=== PATIENT | female | born 1995 | race Caucasian/White ===

== ENCOUNTER 2025-04-26 17:01 | Inpatient (IN) | payer OTHER, SELFPAY ==
[2025-04-26] VITALS (29 sets, daily range): BP systolic 116–146; BP diastolic 70–106; BMI 48.1
--- NOTE | 2025-04-26 15:08 | ED.GENMED ---
History of Present Illness
<Keyshawn Cantrell PA-C - Last Filed: 04/26/25 15:56>
General
Chief Complaint: Breathing Problem
Source: patient
Exam Limitations: none
Time Seen by Provider: 04/26/25 14:59
History of Present Illness
History of Present Illness:
29-year-old female presents with shortness of breath and fatigue. Symptoms worsening over the past couple weeks. Father who typically does not see her states she looks much different than usual. She admits to having a heavy menstrual cycle for
the past 2 weeks. She denies abdominal pain. She states she cannot catch her breath. No syncopal episodes. No recent travel. She is not on any medications regularly.
Phy Exam
<Keyshawn Cantrell PA-C - Last Filed: 04/26/25 15:56>
Physical Exam
Physical Exam:
General: Ill-appearing female with increased respiratory effort
HEENT: Normocephalic atraumatic
Heart: Tachycardic but regular
Lungs: Breath sounds slightly diminished secondary to body habitus
Extremities edematous and pale
Skin is cool
Course
<Keyshawn Cantrell PA-C - Last Filed: 04/26/25 15:56>
Orders/Labs/Results
Orders:
Orders
04/26/25 14:53
Cardiac Monitoring- Treatment ONCE
IV Insert/Care/Rem.- Treatment PRN
Test Result ONCE
O2 Therapy [RESP] Urgent
Titrate/Wean O2 to maintain O2 sat greater than (%): 93
Special Instructions: MAINTAIN CONTINOUS O2 SATS > OR = 93%
Pulse Ox/spot Check [RESP] Urgent
Quantity: 1
Special Instructions: ON ROOM AIR
04/26/25 14:54
EKG [Electrocardiogram (*1)] Urgent
Reason for Study: Shortness of Breath
EKG- Treatment ONCE
04/26/25 14:56
Type+Screen Urgent
Complete Blood Count/With Diff Urgent
Comprehensive Metabolic Panel Urgent
HCG, Serum Qualitative Screen Urgent
Comment: Notify provider if positive test present
NT-proBNP Urgent
Comment: ADD ON
NT-proBNP Urgent
Comment: ADD ON
PTT Urgent
Prothrombin Time Urgent
Troponin I Urgent
04/26/25 15:06
Lactic Acid Urgent
Venous Blood Gas Urgent
%Oxygen/Room Air: room air
04/26/25 15:07
CR Chest Portable - 1 View Urgent
Comment:
Reason For Exam: sob
Reason Study Needs to be Portable: Unable to Transport
04/26/25 15:22
Add On- LAB Urgent
Tests Added?: bnp,
04/26/25 15:23
Echo 2D MMode Color/Doppler Urgent
Reason for Study: sob large heart-portable in ER 29 thanks
04/26/25 15:26
Electrocardiogram (*1) Urgent
Reason for Study: Shortness of Breath
EKG- Treatment ONCE
04/26/25 15:41
COVID-19 Antigen Urgent
Source: Nasal Swab
Influenza A+B Rapid Molecular Urgent
KAITLYNN Source: Nasal Swab
Specimen Description:
04/26/25 15:44
Ehrlichia/Anaplasma by PCR [S] Urgent
Lyme Progressive Urgent
[facility] Spotted Fever IgG&IgM [S] Urgent
Blood Parasites Urgent
KAITLYNN Source: Blood/Venous
Specimen Description:
Furosemide [Lasix] 40 mg IV NOW STA
04/26/25 15:45
Blood Culture Q30M
KAITLYNN Source: Blood/Venous
Specimen Description:
04/26/25 16:15
Blood Culture Q30M
KAITLYNN Source: Blood/Venous
Specimen Description:
Abnormal Lab Results
04/26/25 04/26/25 04/26/25
14:56 15:06 15:15
WBC 14.2 H 10^3/uL
(4.8-10.8)
RBC 3.69 L 10^6/uL
(4.20-5.40)
Hgb 9.0 L g/dL
(12.0-16.0)
Hct 29.0 L %
(37.0-47.0)
MCV 78.6 L fL
(81.0-99.0)
MCH 24.4 L pg
(27.0-31.0)
MCHC 31.0 L g/dL
(33.0-37.0)
RDW 15.4 H %
(11.5-14.5)
Plt Count 127 L 10^3/uL
(130-400)
MPV 12.1 H fL
(7.4-10.4)
Abs Immat Gran (auto) 0.5 H 10^3/uL
(0-0.05)
Absolute Neuts (auto) 10.7 H 10^3/uL
(1.4-6.5)
Absolute Monos (auto) 1.4 H 10^3/uL
(0.1-0.6)
Immature Gran % 3.2 H %
(0-0.5)
Neutrophils % 75.6 H %
(42.2-75.2)
Lymphocytes % 11.1 L %
(20.5-51.1)
Monocytes % 9.7 H %
(1.7-9.3)
PT 18.3 H Sec
(11.4-14.6)
APTT 36.4 H Sec
(23.4-35.0)
VBG pCO2 34 L mmHg
(35-48)
VBG pO2 70 H mmHg
(30-50)
VBG HCO3 20.6 L mmol/L
(22-27)
Sodium 132 L mmol/L
(135-145)
Carbon Dioxide 17 L mmol/L
(22-30)
BUN 43 H mg/dl
(7-17)
Creatinine 1.6 H mg/dL
(0.6-1.0)
Glucose 118 H mg/dl
(70-99)
Lactic Acid 2.3 H mmol/L
(0.7-2.0)
Total Bilirubin 3.1 H mg/dl
(0.2-1.3)
AST 253 H U/L
(14-36)
ALT 247 H U/L
(0-35)
Troponin I 0.185 H* ng/ml
POC Glucose 118 H mg/dl
(70-99)
04/26/25 14:56
04/26/25 14:56
Vital Signs
Initial and Last Documented VS:
Initial Vital Signs
Pulse Resp Pulse Ox
120 58 98
04/26/25 14:54 04/26/25 14:54 04/26/25 14:54
Last Documented Vital Signs
Temp Pulse Resp BP Pulse Ox
97.8 F 116 34 129/92 97
04/26/25 14:55 04/26/25 15:45 04/26/25 15:45 04/26/25 15:45 04/26/25 15:45
Cameronlt;Noe Hebert, DO - Last Filed: 04/26/25 15:48>
Orders/Labs/Results
Orders:
Orders
04/26/25 14:53
Cardiac Monitoring- Treatment ONCE
IV Insert/Care/Rem.- Treatment PRN
Test Result ONCE
O2 Therapy [RESP] Urgent
Titrate/Wean O2 to maintain O2 sat greater than (%): 93
Special Instructions: MAINTAIN CONTINOUS O2 SATS > OR = 93%
Pulse Ox/spot Check [RESP] Urgent
Quantity: 1
Special Instructions: ON ROOM AIR
04/26/25 14:54
EKG [Electrocardiogram (*1)] Urgent
Reason for Study: Shortness of Breath
EKG- Treatment ONCE
04/26/25 14:56
Type+Screen Urgent
Complete Blood Count/With Diff Urgent
Comprehensive Metabolic Panel Urgent
HCG, Serum Qualitative Screen Urgent
Comment: Notify provider if positive test present
NT-proBNP Urgent
Comment: ADD ON
NT-proBNP Urgent
Comment: ADD ON
PTT Urgent
Prothrombin Time Urgent
Troponin I Urgent
04/26/25 15:06
Lactic Acid Urgent
Venous Blood Gas Urgent
%Oxygen/Room Air: room air
04/26/25 15:07
CR Chest Portable - 1 View Urgent
Comment:
Reason For Exam: sob
Reason Study Needs to be Portable: Unable to Transport
04/26/25 15:22
Add On- LAB Urgent
Tests Added?: bnp,
04/26/25 15:23
Echo 2D MMode Color/Doppler Urgent
Reason for Study: sob large heart-portable in ER 29 thanks
04/26/25 15:26
Electrocardiogram (*1) Urgent
Reason for Study: Shortness of Breath
EKG- Treatment ONCE
04/26/25 15:41
COVID-19 Antigen Urgent
Source: Nasal Swab
Influenza A+B Rapid Molecular Urgent
KAITLYNN Source: Nasal Swab
Specimen Description:
04/26/25 15:44
Ehrlichia/Anaplasma by PCR [S] Urgent
Lyme Progressive Urgent
[facility] Spotted Fever IgG&IgM [S] Urgent
Blood Parasites Urgent
KAITLYNN Source: Blood/Venous
Specimen Description:
Furosemide [Lasix] 40 mg IV NOW STA
04/26/25 15:45
Blood Culture Q30M
KAITLYNN Source: Blood/Venous
Specimen Description:
04/26/25 16:15
Blood Culture Q30M
KAITLYNN Source: Blood/Venous
Specimen Description:
Abnormal Lab Results
04/26/25 04/26/25 04/26/25
14:56 15:06 15:15
WBC 14.2 H 10^3/uL
(4.8-10.8)
RBC 3.69 L 10^6/uL
(4.20-5.40)
Hgb 9.0 L g/dL
(12.0-16.0)
Hct 29.0 L %
(37.0-47.0)
MCV 78.6 L fL
(81.0-99.0)
MCH 24.4 L pg
(27.0-31.0)
MCHC 31.0 L g/dL
(33.0-37.0)
RDW 15.4 H %
(11.5-14.5)
Plt Count 127 L 10^3/uL
(130-400)
MPV 12.1 H fL
(7.4-10.4)
Abs Immat Gran (auto) 0.5 H 10^3/uL
(0-0.05)
Absolute Neuts (auto) 10.7 H 10^3/uL
(1.4-6.5)
Absolute Monos (auto) 1.4 H 10^3/uL
(0.1-0.6)
Immature Gran % 3.2 H %
(0-0.5)
Neutrophils % 75.6 H %
(42.2-75.2)
Lymphocytes % 11.1 L %
(20.5-51.1)
Monocytes % 9.7 H %
(1.7-9.3)
PT 18.3 H Sec
(11.4-14.6)
APTT 36.4 H Sec
(23.4-35.0)
VBG pCO2 34 L mmHg
(35-48)
VBG pO2 70 H mmHg
(30-50)
VBG HCO3 20.6 L mmol/L
(22-27)
Sodium 132 L mmol/L
(135-145)
Carbon Dioxide 17 L mmol/L
(22-30)
BUN 43 H mg/dl
(7-17)
Creatinine 1.6 H mg/dL
(0.6-1.0)
Glucose 118 H mg/dl
(70-99)
Lactic Acid 2.3 H mmol/L
(0.7-2.0)
Total Bilirubin 3.1 H mg/dl
(0.2-1.3)
AST 253 H U/L
(14-36)
ALT 247 H U/L
(0-35)
Troponin I 0.185 H* ng/ml
POC Glucose 118 H mg/dl
(70-99)
04/26/25 14:56
04/26/25 14:56
Vital Signs
Initial and Last Documented VS:
Initial Vital Signs
Pulse Resp Pulse Ox
120 58 98
04/26/25 14:54 04/26/25 14:54 04/26/25 14:54
Last Documented Vital Signs
Temp Pulse Resp BP Pulse Ox
97.8 F 116 34 129/92 97
04/26/25 14:55 04/26/25 15:45 04/26/25 15:45 04/26/25 15:45 04/26/25 15:45
Cameronlt;Keyshawn Cantrell PA-C - Last Filed: 04/26/25 15:56>
MDM/Problems Addressed
Differential Diagnosis Includes:
Patient with fatigue and shortness of breath brought back from the waiting room and I evaluated her since she was in the room. Patient tachycardic and pale. Consider anemia from prolonged vaginal bleeding versus PE versus volume overload. Patient
is not hypoxic. No risk factors for PE otherwise.
<Keyshawn Cantrell PA-C - Last Filed: 04/26/25 15:56>
*Pulse Oximetry
SaO2: 99
Oxygen Mode of Delivery: Room air
Patient hypoxic: no
*Critical Care Note
Total Time (30-74mins, 75-104mins- exclusive of procedures): Not Applicable
<Keyshawn Cantrell PA-C - Last Filed: 04/26/25 15:56>
Update Note
Update Note:
Portable chest x-ray demonstrates significantly enlarged heart. Question possible cardiomyopathy. Instead of PE study will order echocardiogram to evaluate for any significant pericardial effusion wall motion abnormality or regurgitation. This is
currently being done at bedside. Seen by cardiology. Given volume overload status Lasix was ordered. Hemoglobin is 9.0 she also bumped her troponin at 0.185
Results of echocardiogram demonstrated severe MR with ejection fraction of 30% no evidence of cord rupture. Treated for acute heart failure. Etiology unclear at this time. Lasix ordered. Will admit to hospitalist
ED Attending Note
<Keyshawn Cantrell PA-C - Last Filed: 04/26/25 15:56>
-
Portions of this chart may have been created with voice recognition software.� Occasional wrong word or��sound alike� substitutions may have occurred due to the inherent limitations of voice recognition software.
<Noe Hebert DO - Last Filed: 04/26/25 15:48>
ED Attending Note
Patient seen and examined by attending physician: Yes
I performed the substantive portion of visit, reviewed & personally made and approve the management plan that is documented in note by myself or OUMAR.: Yes
ED Attending Note:
Seen with PA examined [id number] female presents with shortness of breath subacute onset with cough she has lower extremity edema has had heavy menstrual period, looks pale and mottled, sinus tachycardia, chest x-ray shows a large
heart, patient undergoing echocardiogram, cardiology evaluation, leading differential now looks to be cardiomyopathy press valvulopathy perhaps infectious PE conceivably though she has no RV strain apparently is anemic with mild renal insufficiency
Discharge Plan
Departure
Patient Disposition: Admit
Date of Disposition: 04/26/25
Time of Disposition: 15:55
Presentation/result/management discussed w/ accepting MD/DO: Hospitalist
Discharge Problem:
Acute congestive heart failure
Prescriptions:
No Action
albuterol sulfate 90 mcg/actuation Hfa Aerosol Inhaler
2 puff INHALATION Q6H PRN (Reason: sob)
Interventions
Interventions:
*Risk Screen - Suicide Last Done: 04/26/25 14:55
*General Assessment Last Done: 04/26/25 14:55
*Neglect/Abuse Screening Last Done: 04/26/25 14:55
*ED- Fall Risk Assessment Last Done: 04/26/25 14:55
*ED COVID-19 Vaccine History Last Done: 04/26/25 14:55
ED- Cardiac Assessment Last Done: 04/26/25 15:10
ED- Pulmonary Assessment Last Done: 04/26/25 15:10
Discharge Date and Time
Print Language: EGYPTIAN
[2025-04-26 15:11] LABS: Hematocrit 29.0 % (37.0-47.0); Hemoglobin 9.0 g/dL (12.0-16.0); Mean Corp Hgb Conc. 31.0 g/dL (33.0-37.0); Mean Corpuscular Volume 78.6 fL (81.0-99.0); Nucleated Red Blood Cells % 1.4 %; Platelet Count 127 10^3/uL (130-400); Red Cell Dist. Width 15.4 % (11.5-14.5)
[2025-04-26 15:13] LABS: Venous Blood Gas B.E. -3.8 mmol/L (-4 to +4); Venous Blood Gas O2 Sat % 97.0 %
[2025-04-26 15:16] LABS: Glucose - Point of Care 118 mg/dl (70-99)
[2025-04-26 15:17] LABS: APTT 36.4 Sec (23.4-35.0); INR 1.46; PT 18.3 Sec (11.4-14.6)
[2025-04-26 15:32] LABS: Troponin I 0.185 ng/ml
[2025-04-26 15:33] LABS: HCG, Serum Qualitative Screen Negative
[2025-04-26 15:38] LABS: ALT (SGPT) 247 U/L (0-35); AST (SGOT) 253 U/L (14-36); Albumin 3.9 g/dl (3.5-5.0); Alkaline Phosphatase 123 U/L (38-126); Blood Urea Nitrogen 43 mg/dl (7-17); Calcium 8.6 mg/dl (8.4-10.2); Carbon Dioxide 17 mmol/L (22-30); Chloride 101 mmol/L (98-107); Estimated Creatinine Clearance 72 ml/min; Glucose 118 mg/dl (70-99); Potassium 4.1 mmol/L (3.5-5.1); Sodium 132 mmol/L (135-145); Total Protein 6.8 g/dl (6.3-8.2); eGFR 45.05
--- NOTE | 2025-04-26 15:58 | EDRN ---
Per technical clerk at bedside, the pt was given a dose of lipid molecule medication Lumason during ECHO testing for enhanced picture
[2025-04-26] MEDS: LASIX 40 MG IV (16:03)
--- NOTE | 2025-04-26 16:03 | CARDSERVLU ---
Echocardiogram with Lumason completed after protocol screening completed. Allergies verified.
Patent IV site: _right upper accessary cephalic 18 G PC____
IV site flushed with 0.9% NaCl pre and post administration.
Diluted bolus method utilized to enhance visualization of ventricular covarrubias.
Total volume given: _2___ mL
Patient tolerated all procedures well without complications.
[2025-04-26 16:21] LABS: COVID-19 Antigen Negative (Negative)
--- NOTE | 2025-04-26 16:22 | HPS.HSE ---
Family Physician
-
Family Physician:
Chief Complaint
-
shortness of breath
History of Present Illness
29-year-old female past medical history of mild autism/Asperger's, asthma, presenting with shortness of breath and fatigue worsening over the past 2 weeks. Significantly increased bilateral lower extremity edema. Unsure about weight gain. Patient
has been having heavy menstrual bleeding over the past week which is apparently not abnormal for her. No abdominal pain. No dizziness or passing out. No fever. No tick bites. No rashes. Received obtained from patient's father. She did have
some chest pain intermittently but denies any chest pain currently. No cough. No recent travel.
Patient is highly functional at baseline.
She lives with her grandparents. There is a history of heart disease in her father.
He does not smoke or drink alcohol or use drugs.
Medical History
Past Medical History
Past Medical History: Reports Other (mild autism/Asperger's, asthma,)
Past Surgical History: Reports None
Social History
Tobacco: Non-smoker
Alcohol: None
Drug: None
Family History
Family History: Not pertinent
Allergies / Home Medications
Allergies reflects when Allergies were last updated in [facility].
Home Medications with original date entered in [facility]
Allergy/Medication List:
Allergies
Allergy/AdvReac Type Severity Reaction Status Date / Time
No Known Allergies Allergy Unverified 04/26/25 15:02
Home Medications
albuterol sulfate 90 mcg/actuation aerosol inhaler 2 puff inhalation R Q6HPRN PRN sob 04/26/25
Review of Systems
-
History Source: Patient
A 12 point ROS was completed and negative except as noted: Yes
Constitutional: Reports No Symptoms
EENT: Reports No Symptoms
Respiratory: Reports No Symptoms
Cardiac: Reports No Symptoms
Abdomen/GI: Reports No Symptoms
: Reports No Symptoms
Musculoskeletal: Reports No Symptoms
Skin: Reports No Symptoms
Neurological: Reports No Symptoms
Endocrine: Reports No Symptoms
Hematologic/Lymphatic: Reports No Symptoms
Psych: Reports No Symptoms
Physical Exam
Vital Signs
Vital Signs
Temp Pulse Resp BP Pulse Ox
97.8 F 116 34 139/86 98
04/26/25 14:55 04/26/25 16:08 04/26/25 16:08 04/26/25 16:08 04/26/25 16:08
Physical Exam
General: Well Developed, Well Nourished and No Apparent Distress
HEENT: NormoCephalic, Moist mucous membranes and Atraumatic
Respiratory: Clear
Cardiac: S1/S2, Regular Rhythm and Peripheral Edema; No Murmur or Rub
GI: Soft, Non Tender, Non Distended and Normal Bowel Sounds; No Organomegaly
Rectal: Deferred by Provider
Musculoskeletal: No Clubbing, No Cyanosis and No Edema
Skin: No Rash
Neuro: Nonfocal/grossly intact
Laboratory Results
-
04/26/25 14:56
04/26/25 14:56
Laboratory Results
PT 18.3 Sec (11.4-14.6) H 04/26/25 14:56
INR 1.46 04/26/25 14:56
APTT 36.4 Sec (23.4-35.0) H 04/26/25 14:56
Lactic Acid 2.3 mmol/L (0.7-2.0) H 04/26/25 15:06
Total Bilirubin 3.1 mg/dl (0.2-1.3) H 04/26/25 14:56
AST 253 U/L (14-36) H 04/26/25 14:56
ALT 247 U/L (0-35) H 04/26/25 14:56
Alkaline Phosphatase 123 U/L (38-126) 04/26/25 14:56
Troponin I 0.185 ng/ml H* 04/26/25 14:56
Data Reviewed
-
Lab Data: Labs Reviewed by me
Old Records: Reviewed
Impression/Plan
-
IMPRESSION:
PLAN:
# Dyspnea concerning for acute CHF exacerbation secondary to cardiomyopathy unclear if viral/tickborne related
- Chest x-ray shows significant cardiomegaly concerning for cardiomyopathy
-ABG shows pH of 7.39, pCO2 of 34
-Stat echocardiogram showed ejection fraction of 30%
- Check I's and O's, daily weights
- 40 IV Lasix daily
- Cardiology consulted
# SIRS (leukocytosis, tachypnea, tachycardia) possibly secondary to CHF versus underlying infectious process
# Transaminitis possibly secondary to hepatic venous congestion versus
- Blood parasites, Lyme's, ehrlichiosis/anaplasmosis, [place] spotted fever pending
- Check blood cultures
- Trend lactate
- Hold off antibiotics
# Nonischemic myocardial injury
-No chest pain currently
-EKG shows sinus tachycardia, prolonged QTc of 500
- Troponin of 0.185
- Trend troponins
# Acute kidney injury likely cardiorenal
- Monitor with diuresis
Possibly chronic anemia secondary to menstrual bleeding
- Hemoglobin 9
Likely acute thrombocytopenia
- Platelets 127
Mild autism/Asperger's
Asthma
- Continue albuterol
Full code
DVT prophylaxis�heparin
Regular diet
--- NOTE | 2025-04-26 16:24 | CON.CAR ---
Addendum entered and electronically signed by Jon Mcmillan MD 04/26/25 17:49:
I saw and examined the patient.
The Analytics Senior Manager's note was reviewed and I agree with the note.
Comment: Briefly, 29-year-old woman with no significant past medical history who presents with at least one month of progressively worsening dyspnea and peripheral edema. Checks x-ray showed cardiomegaly and bilateral infiltrates concerning for
pulmonary edema concerning for acute heart failure. Subsequent echocardiogram showed severely dilated left ventricle with severely reduced left ventricular systolic function and severe MR.
On examination patient is tachycardic with holosystolic murmur consistent with significant mitral regurgitation, tachypneic on 3 L supplemental O2, 2-3+ pitting lower extremity edema
Initial labs with elevated creatinine, LFTs and lactate all suggestive of low-flow state
IV Lasix once now and then at least twice daily going forward in an attempt to improve her respiratory status
If respiratory status worsens would consider positive pressure ventilation with CPAP
Ideally would start afterload reduction and patient's blood pressure has been consistently elevated
Will order low-dose losartan and monitor renal function closely. If creatinine worsens would consider hydralazine as an alternative.
Plan to add GDMT stepwise as blood pressure and renal function tolerates
Etiology of her cardiomyopathy is unclear. There is no significant history of cardiomyopathy that we can ascertain and we are told she does not drink alcohol or drug use.
Discussed possible left/right heart cath next week to exclude coronary disease and assess intracardiac filling pressures. And that ultimately we could consider cardiac MRI in the future but for now we will focus on optimizing her medical therapy.
Troponin elevation is noted 0.185. Would trend peak.
Not reporting any chest discomfort, overall my suspicion for ACS is low. Suspect this is nonischemic myocardial injury troponin elevation in the setting of acute heart failure.
Discussed with ER physicians as well as family at bedside
Original Note:
Consultation
Consultation Request
Date/Time Consultation Requested: 04/26/2025
Date/Time Consultation Performed: 04/26/2025
Requesting Provider: Dr. Hebert in the ER
Performing Provider: Dr. Mcmillan
Reason for Consultation: Acute HF
Medical History
-
History of Present Illness:
Patient came to the ER today with SOB and LE edema and is being admitted with acute HF and cardiology has been consulted. Patient lives with her maternal grandmother and her mother side of the family had been reporting that the patient was more
swollen and SOB. The patient's father was alerted that the patient was more swollen and that while some of the mother's family felt that her symptoms were not severe other family members felt that she needed 911 called and so the father left work
early to check on the patient today then brought her to [facility] ER to be evaluated. The patient's father reports that his daughter is usually conversant and that when he saw her today she was barely responsive and did not appear to be herself, she had
significant LE edema that she does not usually have. Reportedly patient has her own room at her grandmother's house and it is infested with mice because she takes food and drink into her room and does not realize that she has to throw it out.
Family reports that patient has normal intelligence level without any history of developmental delay and was able to graduate high school, but is not currently employed. Patient has never been officially diagnosed as being autistic, but the family
reports that she does not do well with physical touch and has trouble making complex decisions. It is unclear how long patient has been SOB, she told the analytical tech is been weeks and she told family it has been a couple of days. Patient denies any
chest pain.
PMH:
None
Past Medical History
Past Medical History: Other (In HPI)
Past Surgical History: None
Social History
Tobacco: Non-Smoker
Alcohol: None (Patient and family deny alcohol use)
Drug: None (Patient and family deny drug use)
Personal: Single
Living: With Family (Was living with her maternal grandmother and Hermila)
Family History
Family History: CAD (Paternal great uncle with history of GA, father had negative cardiac cath within the last few years)
Allergies / Home Medications
Allergy/AdvReac Type Severity Reaction Status Date / Time
No Known Allergies Allergy Unverified 04/26/25 15:02
�Medication �Instructions �Recorded �Confirmed �Type
albuterol sulfate 90 mcg/actuation 2 puff inhalation R Q6HPRN PRN sob 04/26/25 04/26/25 History
aerosol inhaler
Review of Systems
-
History Source: Patient and Family (Talked with father and paternal grandmother)
All other systems: Negative unless noted
Physical Exam
Vital Signs
Temp Pulse Resp BP Pulse Ox
97.8 F 116 34 139/86 98
04/26/25 14:55 04/26/25 16:08 04/26/25 16:08 04/26/25 16:08 04/26/25 16:08
GEN: NAD. AAO to person place and situation, but had to look at her smart watch to tell me what day of the week it was
HEENT: EOMI
LUNGS: 3 L NC. Dyspneic with conversation. Diffuse Rales
CV: Sinus tachycardia on telemetry. Reg, S1/S2, 3/6 syst HSM
ABD: ND
EXT: +2 pitting B/L LE edema
NEURO: Gross non-focal
SKIN: No rash
Lab Results
04/26/25 14:56
04/26/25 14:56
Troponin I 0.185 ng/ml H* 04/26/25 14:56
Aqk-[id number] Pept Cancelled 04/26/25 14:56
Impression / Plan
-
PCP: None
Cardiology: None
Impression:
Presented to the ER with acute hypoxic respiratory failure and edema 04/26/2025
Acute hypoxic respiratory failure
Acute HFrEF
Newly diagnosed CM EF 20 to 25% by echo 04/26/2025
Moderate MR by echo 04/26/2025
Elevated troponin
ROGELIO
Anemia, initial Hgb 9 on 04/26/2025
Leukocytosis
Thrombocytopenia
Hyponatremia
Elevated lactic acid level
Elevated LFTs
Echo 04/26/2025: Preliminary report, EF 20 to 25%, moderate MR
Plan:
-Patient came to the ER today with SOB and LE edema and is being admitted with acute HF and cardiology has been consulted. Patient lives with her maternal grandmother and her mother side of the family had been reporting that the patient was more
swollen and SOB. The patient's father was alerted that the patient was more swollen and that while some of the mother's family felt that her symptoms were not severe other family members felt that she needed 911 called and so the father left work
early to check on the patient today then brought her to [facility] ER to be evaluated. The patient's father reports that his daughter is usually conversant and that when he saw her today she was barely responsive and did not appear to be herself, she had
significant LE edema that she does not usually have. Reportedly patient has her own room at her grandmother's house and it is infested with mice because she takes food and drink into her room and does not realize that she has to throw it out.
Family reports that patient has normal intelligence level without any history of developmental delay and was able to graduate high school, but is not currently employed. Patient has never been officially diagnosed as being autistic, but the family
reports that she does not do well with physical touch and has trouble making complex decisions. It is unclear how long patient has been SOB, she told the analytical tech is been weeks and she told family it has been a couple of days. Patient denies any
chest pain.
-ECG reviewed by me is sinus tachycardia, no acute ischemic changes
-Preliminary echo report reviewed with patient and family, EF appears reduced at 20 to 25% with moderate MR, these are new diagnoses for the patient.
-Troponin is elevated, but no chest pain and hypokinesis appears global. Reviewed with patient and family eventual ischemic evaluation, likely cardiac cath, once diuresed.
-We also talked about possible workup for NICM pending results of cardiac cath. Patient denies alcohol use and family also denies patient having any alcohol use disorder. No reports of illicit drug use and patient also denies. There is no family
history of cardiomyopathy.
-Pending results of cardiac cath she may eventually need cardiac MRI
-Lasix 40 mg IV x 1 ordered by me in the ER, recommend Lasix 40 mg IV BID diuresis
-Initial Cre is 1.6, will follow while patient diuresis
-Start lisinopril 5 mg daily if Cre is stable in the a.m. could consider eventual transition to Entresto, but not sure that patient has medical insurance
-Eventually start Coreg
-Eventually add spironolactone and SGLT2 inhibitor, again not sure if she will be able to afford Farxiga or Jardiance if she does not have medical insurance and prescription coverage.
-CM consult to help with determination of insurance coverage and to see if patient qualifies for Medicaid.
-Elevated LFTs could be due to hepatic congestion, will follow.
-Initial troponin 0.158 and could be due to acute HF. No chest pain and no regional WMA on echo. Will trend, but suspect this is nonischemic myocardial injury troponin elevation due to acute HF
-Preliminary echo report looks like at least moderate MR without evidence of torn cord or vegetation. Recheck echo once diuresed. Blood cultures ordered in the ER.
-Patient is anemic with Hgb of 9. Patient reports she has had a menstrual cycle for 2 weeks. Hospitalist to evaluate.
[2025-04-26] MEDS: COZAAR 25 MG PO (18:35)
[2025-04-26 19:13] LABS: Troponin I 0.198 ng/ml
[2025-04-26] MEDS: LASIX 20 MG IV (20:37)
[2025-04-26] MEDS: HEPARIN 5000 UNITS SC (20:41)
[2025-04-27] VITALS (23 sets, daily range): BP systolic 96–140; BP diastolic 60–88; BMI 46.8; BMI 46.6
--- NOTE | 2025-04-27 00:40 | EDRN ---
Just before going home for the night, the pts father Ha stated that he is concerned that the patient may not be able to fully comprehend what is going on medically and may be unable to make appropriate decisions regarding her medical care and
treatment plan. the pts father Ha also reports that the pt 'may be autistic but was never tested or diagnosed.' [facility] PROFESSOR Ekaterina Patel was notified of above and per [facility] NAKITA Tobar, an order was placed for a case management consult.
[2025-04-27 00:44] LABS: Troponin I 0.207 ng/ml
[2025-04-27 06:48] LABS: ALT (SGPT) 210 U/L (0-35); AST (SGOT) 103 U/L (14-36); Albumin 3.3 g/dl (3.5-5.0); Alkaline Phosphatase 109 U/L (38-126); Blood Urea Nitrogen 44 mg/dl (7-17); Calcium 7.7 mg/dl (8.4-10.2); Carbon Dioxide 24 mmol/L (22-30); Chloride 102 mmol/L (98-107); Estimated Creatinine Clearance 72 ml/min; Glucose 97 mg/dl (70-99); Potassium 3.3 mmol/L (3.5-5.1); Sodium 136 mmol/L (135-145); Total Protein 6.0 g/dl (6.3-8.2); eGFR 45.05
[2025-04-27 06:49] LABS: Hematocrit 27.6 % (37.0-47.0); Hemoglobin 8.8 g/dL (12.0-16.0); Mean Corp Hgb Conc. 31.9 g/dL (33.0-37.0); Mean Corpuscular Volume 77.5 fL (81.0-99.0); Nucleated Red Blood Cells % 0.6 %; Platelet Count 100 10^3/uL (130-400); Red Cell Dist. Width 15.6 % (11.5-14.5)
[2025-04-27 07:01] LABS: Troponin I 0.198 ng/ml
--- NOTE | 2025-04-27 07:54 | W.PN.HOSP.TC ---
Addendum entered and electronically signed by Natalia Duncan MD, Resident 04/27/25 16:30:
CDI:
Pt BMI 46.8, c/w dx of severe obesity
Original Note:
Today's Communication/Plan
-
- Continue IV lasix 40mg bid
- Losartan 25mg PO daily
- If Cr worsens, consider hydralazine alternative
- Will add GDMT stepwise as BP & renal fxn tolerate (currently ARB; pending SGLT2i, MRA, BB)
- Blood cx pending
- Lyme, ehrlichiosis/anaplasmosis, [place] spotted fever pending
- Hold on viral panel given lab restrictions (parvovirus B19, HHV6, coxsackievirus, adenovirus, echovirus, CMV, HIV)
- Lipid panel pending
- HA1c pending
- Order ESR, CRP, JOAQUÍN, ANCA, RF, complements
- CPAP if respiratory status declines
- Consider heart cath next week to assess filling pressures, exclude CAD
- Long-term, consider cardiac MRI
- Long-term, consider outpatient genetics workup if unable to determine other etiology of DCM
- Cards following, appreciate recs
- Keep Mg>2, K>4
- Follow iron labs
- Tele
- Start ASA 81mg
Assessment / Plan
Assessment / Plan
Elodia Mcadams is a 29yo F w no significant pmh who p/w subacute dyspnea & GLORIA, found to have cardiomegaly, pulmonary edema, LVEF 24%, & severe MR all c/f acute HFrEF in s/o cardiomyopathy of unknown etiology.
#Acute HFrEF (24%)
#Severe MR
#Dilated cardiomyopathy
#Tachypnea
Pt presents w ~1-2 weeks of worsening dyspnea and GLORIA. CXR (04/26): cardiomegaly & small bilat pleural effusions. Echo (04/26): LVEF 24%, global hypokinesis, severely dilated L ventricle, severe MR, mild TR, pulm artery pressure estimated 44mmHg. On
presentation - tachycardic, tachypneic without hypoxia or CP (98% RA but RR in 50s > put on 3L NC). BUN elevated 44. ABG w pH of 7.39, pCO2 of 34.
Precipitating dilated cardiomyopathy of unknown etiology. Ddx dilated cardiomyopathy: CAD (less likely in young pt, pending lipid panel) vs. viral (no hx of ppt sx, possible subclinical viral infection, micro pending) vs. tick-borne bacterial (no hx
exposure, micro pending) vs. genetic syndromes (to clarify fam hx) vs. drug/alcohol toxicity (denies use) vs. sarcoid/autoimmune (pending workup). Fam hx of some HF, unknown etiology. Hx on presentation - 'No fever. No tick bites. No rashes. No
cough. No recent travel.' Bedroom at home has mice infestation. She does not smoke or drink alcohol or use drugs. Rash on arms/legs reported as chronic, not petechial/purpuric, not targetoid, not in typical autoimmune distribution. Blood parasites
smear negative, flu a/b negative, covid negative. MR likely secondary in s/o dilated cardiomyopathy.
This am remains tachycardic ~100bpm and tachypneic RR 36. Satting 97% on room air (weaned off 2L this am). Fluid balance -5 ml. Afebrile, normotensive. WBC 14.2>11.8 today, likely elevated in s/o inflammatory state.
- Continue IV lasix 40mg bid
- Losartan 25mg PO daily
- If Cr worsens, consider hydralazine alternative
- Will add GDMT stepwise as BP & renal fxn tolerate (currently ARB; pending SGLT2i, MRA, BB)
- Blood cx pending
- Lyme, ehrlichiosis/anaplasmosis, [place] spotted fever pending
- Hold on viral panel given lab restrictions (parvovirus B19, HHV6, coxsackievirus, adenovirus, echovirus, CMV, HIV)
- Lipid panel pending
- HA1c pending
- Order ESR, CRP, JOAQUÍN, ANCA, RF, complements
- CPAP if respiratory status declines
- Consider heart cath next week to assess filling pressures, exclude CAD
- Start ASA 81mg
- Long-term, consider cardiac MRI
- Long-term, consider outpatient genetics workup if unable to determine other etiology of DCM
- Cards following, appreciate recs
#SIRS
Pt still meeting SIRS criteria 2/2 tachycardia, tachypnea. WBC elevated on admission, trending down 14.2>11.8. Lower suspicion for infectious etiology given afebrile, no localizing sx or exposure, WBC trending down in absence of abx, elevated HR &
RR explained by acute HF. Lactate not elevated, 1.7. Will continue to monitor pending micro labs.
-Monitor tick-borne dz panel & blood cx
-Continue mgmt of HF as above
-Monitor vitals closely
-Hold on starting abx
#Transaminitis
Likely 2/2 hepatic congestion in s/o volume overload 2/2 acute HFrEF. Corroborated by improving ALT/AST s/p diuresis. t bili 3.1>2.9; AST 253>103; ALT 247>210
- Continue to trend AST/ALT, tbili
#Elevated troponin
#Long QT
Likely in 2/2 nonischemic myocardial injury s/o acute HF. EKG (04/26): prolonged QT 500 & sinus tachy. C/f episode of torsades. Low suspicion for ACS given EKG & lack of CP. Trop: 0.198>0.207>0.198.
- Continue to monitor troponin, assess for peak
- Replete Mg (keep >2, K>4)
- Tele
#Elevated Cr, suspected cardiorenal
Unknown baseline Cr but pt without known renal condition at baseline. Elevated Cr: 1.6>1.6 likely 2/2 cardiorenal syndrome in s/o acute HF.
- Continue to monitor w diuresis
#Anemia
Likely combination of heavy menstrual period over last week and inflammatory state. Microcytic anemia.
- Continue to monitor, transfuse if hgb<7
- F/u iron studies, replete iron as needed
#Hypokalemia
K today: 4.1>3.3. In s/o IV lasix.
-Replete K, continue to monitor
#Chronic
-Suspected mild autism/Asperger's, father c/f capacity - consult psych today for eval
-Asthma - albuterol
#Global
-DVT ppx: heparin
-Diet: cholesterol lowering
-Code: full
-Dispo: to home, lives with grandparents; pending resolution of HF
Anticipated Discharge: > 48 hours
Subjective/Interval History
-
Date of Service: April 27, 2025
Pt denies CP, n/v. No bowel movements yet. Does not have much appetite. Somewhat slurred speech but able to converse. No new pain or complaints. Feels that GLORIA improved somewhat today. Still somewhat SOB. Endorses cough 'every now and then.'
Objective Data
-
Labs:
Laboratory Results
04/27/25
05:46
WBC 11.8 H
Hgb 8.8 L
Hct 27.6 L
Plt Count 100 L D
Sodium 136
Potassium 3.3 L
Chloride 102
Carbon Dioxide 24
BUN 44 H
Creatinine 1.6 H
Glucose 97
Calcium 7.7 L
Total Bilirubin 2.9 H
AST 103 H
ALT 210 H
Alkaline Phosphatase 109
Vital Signs:
Vital Signs
Temp Pulse Resp BP Pulse Ox
98.0 F 99 36 111/67 97
04/26/25 18:07 04/27/25 06:30 04/27/25 06:30 04/27/25 06:00 04/27/25 06:30
I&O
04/26/25 04/27/25 04/28/25
06:59 06:59 06:59
Output Total 1824 200 / 200
Balance -1824 -200 / -200
Review of Systems
-
Unable to obtain full review of systems at this time due to: Other
History Source: Patient
Constitutional: Reports No Symptoms
Respiratory: Reports Cough (minimal cough, 'every now and then' ) and Trouble Breathing
Cardiac: Reports Chest Pain (denies)
Abdomen/GI: Reports No Symptoms
Skin: Reports Rash (rash has been present on bilat arms, legs 'for awhile', not itchy )
Physical Exam
-
General: Respiratory Distress (able to speak but with visibly elevated RR ), Conversant, Slurred Speech and Obese
HEENT: Normocephalic, Atraumatic and Anicteric
Respiratory: Clear to Auscultation (clear to ausculatation bilat upper lobes; RLL with rub ) and Other (visible tachypnea but without accessory muscle use )
Cardiac: Regular Rhythm, Murmur and Tachycardic
GI: Soft and Nontender
Genito-urinary: Yuen (light yellow urine)
Musculoskeletal: Other (bilat GLORIA, pitting 2+ in feet, 1+ to mid-ramsey )
Skin: Ulcers (erythematous scattered macules on bilat forearms & R calf; not pruritic, not raised, not weeping)
Neuro: Awake
Psych: Calm and Other (slight cognitive impairment)
Data Reviewed
-
Total Time Spent with Patient (in minutes): 15
Critical Care Time (in minutes): 45
Diagnostic Radiology: Image personally visualized and interpreted and Report Reviewed by me
Medical Tests (Nuc Med, Echo etc): Report Reviewed by me
Labs: Labs Reviewed by me
[2025-04-27] MEDS: COZAAR 25 MG PO (08:53)
[2025-04-27] MEDS: KCL ELIXIR 40 MEQ PO (08:53)
[2025-04-27] MEDS: LASIX 40 MG IV ×2 (08:53→16:10)
[2025-04-27] MEDS: HEPARIN 5000 UNITS SC ×2 (08:54→20:30)
--- NOTE | 2025-04-27 09:37 | CM ---
CM reviewed chart and met with pt bedside in ED. I also spoke to her father over the phone.
Per father, pt had been living with her maternal grandparents for several years but has been hoarding and there were mice in the room. Father picked her up yesterday and brought her to the ED. She will go to father's house at discharge.
His home is split level, no ASHLEY, she will have first floor BR and half BA, full BA on second level.
Pt is independent in ADLs, personal care and ambulation at baseline.
Pt is not currently employed, her father told me she previously had 'government insurance' but it lapsed and her mother is trying to get it restarted. I will reach out to [facility] for assistance with this.
Pt's father said she has always been indecisive, her mother's family believes she is 'on the spectrum' but has never been tested.
I discussed that she may need an evaluation to see if she has capacity to make health decisions and that would need to be done by a psychiatrist, he was agreeable. He will be coming in to visit shortly.
PCP: Does not currently have one
Pharmacy: [facility] [address]
CM will continue to follow for any discharge planning needs.
--- NOTE | 2025-04-27 10:05 | W.PN.CARDCBS ---
Addendum entered and electronically signed by Joaquin Diaz MD 04/27/25 11:14:
29-year-old woman admitted with acute on chronic HFrEF and severe mitral regurgitation, troponin 0.185. Says she feels better, very flat affect with what appears to be psychomotor slowing.
Current meds: Subcu heparin, losartan 25 mg daily, furosemide 40 mg IV twice daily, potassium 20 mill equivalents daily
111/67, pulse 99, respiratory rate 36, afebrile, intake and output -2 L, weight is 127.6 kg, if accurate down 3.4 kg, very flat affect, with psychomotor retardation, conversant, says she feels better, limited exam lungs are relatively clear,
difficult to auscultate MR murmur, abdomen 9 JVD hard to assess 2+ edema
White count is 11.8, hemoglobin is 8.8, MCV is 77,
Potassium is 3.3, BUN and creatinine are 44 and 1.6, creatinine is stable, troponin is flat at 0.198, proBNP is greater than 27,000, TSH is normal, microcytic, bilirubin is 2.9, AST and ALT are 103 and 210 respectively, hemoglobin is 8.8
Chest x-ray: Massive cardiomegaly, vascular congestion
Echo 04/26/2025: Severely dilated left ventricle, EF 24% with global hypokinesis, low normal RV function, severe MR, mild TR, pulmonary artery systolic pressure is 44 mmHg, severely dilated left atrium moderately dilated right atrium, normal aortic
valve, posterior leaflet of mitral valve appears restricted
ECG sinus tach, long QT,
Telemetry: Polymorphic VT and some monomorphic VT
Impression:
Nonischemic cardiomyopathy of unknown certain cause with severe LV dysfunction
Severe mitral regurgitation, primary versus secondary
Creatinine 1.6 with reduced GFR, CKD versus ROGELIO versus ROGELIO on CKD
Polymorphic VT with QT prolongation
Anemia
Flat affect with psychomotor motor retardation, unclear whether related to underlying systemic illness, primary psychiatric disorder, etc.
Plan:
She presents with acute heart failure with reduced EF, severe mitral regurgitation and severe LV dysfunction. Unclear whether her mitral regurgitation is a primary issue or secondary, for example atrial functional mitral regurgitation related to
annular dilatation. Also concerns regarding possible inflammatory or autoimmune causes of LV dysfunction.
Of concern her QT interval is prolonged, and she has had polymorphic VT and also VT that looks more monomorphic.
Need to consider underlying systemic illnesses given her clinical picture. Would exclude endocrine abnormalities, possibly even nutritional deficits. Will defer to hospitalist regarding screening for collagen vascular disease, vasculitis, etc. to
possibly explain affect, etc.
For now from a cardiac standpoint, short-term goals will be optimization of medical regimen and ultimately cardiac catheterization probably next week.
Blood pressure is very marginal, but will attempt to add a low-dose of a beta-mateo. She is on losartan at this time. Goal will be to add spironolactone and an SGLT2 antagonist interna.
She should have a cardiac MRI.
Monitor magnesium and potassium closely.
Original Note:
Today's Communication / Plan
-
continue IV diuresis
replete K/mag. follow rhythm. check EKG
asa 81mg daily
add on iron studies
tentatively for cath Wednesday
Impression / Plan
-
PCP: None
Cardiology: None
Impression:
Presented to the ER with acute hypoxic respiratory failure and edema 04/26/2025
Acute hypoxic respiratory failure
Acute HFrEF
Newly diagnosed CM EF 20 to 25% by echo 04/26/2025
Moderate MR by echo 04/26/2025
Elevated troponin
ROGELIO
Anemia, initial Hgb 9 on 04/26/2025
Leukocytosis
Thrombocytopenia
Hyponatremia
Elevated lactic acid level
Elevated LFTs
Echo 04/26/2025: Preliminary report, EF 20 to 25%, moderate MR
Plan:
- Patient reports her breathing is improving compared to yesterday. Weight down 7 pounds if accurate overnight. Continue IV Lasix. Creatinine stable at 1.6. LFTs improving
- Noted to have 1 run of what appears to be brief torsades around 23:00, as well as approximately 10 beat run of NSVT this AM. K3.3, will replete. ordered mag repletion stat. Repeat EKG to evaluate QTc
- Echocardiogram showed EF 20 to 25% with severe MR. Patient is not sure if she has ever been told she has a murmur in the past
-Troponin elevated at 0.2 and downtrending. No chest pain. start aspirin 81mg daily
- Continue diuresis through weekend and would consider for cardiac catheterization on Wednesday
- Patient denies alcohol use and family also denies patient having any alcohol use disorder. No reports of illicit drug use and patient also denies. There is no family history of cardiomyopathy. Pending results of cardiac cath she may eventually
need cardiac MRI
-continue cozaar for afterload reduction
-Eventually start Coreg. in ST on review of tele overnight
-Eventually add spironolactone and SGLT2 inhibitor, if able to afford
-CM consult to help with determination of insurance coverage and to see if patient qualifies for Medicaid.
-Patient is anemic with Hgb of 8.8, microcytic. Patient reports she has had a menstrual cycle for 2 weeks. check iron studies
-d/w nursing
PREADMIT DATA:
-Patient came to the ER today with SOB and LE edema and is being admitted with acute HF and cardiology has been consulted. Patient lives with her maternal grandmother and her mother side of the family had been reporting that the patient was more
swollen and SOB. The patient's father was alerted that the patient was more swollen and that while some of the mother's family felt that her symptoms were not severe other family members felt that she needed 911 called and so the father left work
early to check on the patient today then brought her to [facility] ER to be evaluated. The patient's father reports that his daughter is usually conversant and that when he saw her today she was barely responsive and did not appear to be herself, she had
significant LE edema that she does not usually have. Reportedly patient has her own room at her grandmother's house and it is infested with mice because she takes food and drink into her room and does not realize that she has to throw it out.
Family reports that patient has normal intelligence level without any history of developmental delay and was able to graduate high school, but is not currently employed. Patient has never been officially diagnosed as being autistic, but the family
reports that she does not do well with physical touch and has trouble making complex decisions. It is unclear how long patient has been SOB, she told the flight readiness technician is been weeks and she told family it has been a couple of days. Patient denies any
chest pain.
Progress Note - Game Designer/Creative Director
Subjective
Date of Service: April 27, 2025
reports breathing improving from yesterday. no CP, palpitations
Objective
Labs:
04/27/25 05:46
04/27/25 05:46
Labs
Hgb 8.8 g/dL (12.0-16.0) L 04/27/25 05:46
Hct 27.6 % (37.0-47.0) L 04/27/25 05:46
Plt Count 100 10^3/uL (130-400) L D 04/27/25 05:46
PT 18.3 Sec (11.4-14.6) H 04/26/25 14:56
INR 1.46 04/26/25 14:56
APTT 36.4 Sec (23.4-35.0) H 04/26/25 14:56
Sodium 136 mmol/L (135-145) 04/27/25 05:46
Potassium 3.3 mmol/L (3.5-5.1) L 04/27/25 05:46
BUN 44 mg/dl (7-17) H 04/27/25 05:46
Creatinine 1.6 mg/dL (0.6-1.0) H 04/27/25 05:46
Glucose 97 mg/dl (70-99) 04/27/25 05:46
Troponins
04/26/25 04/26/25 04/27/25
14:56 18:41 00:01
Troponin I 0.185 H* 0.198 H* 0.207 H*
04/27/25
05:46
Troponin I 0.198 H*
Vital Signs and I&O:
Vital Signs
Temp Pulse Resp BP Pulse Ox
98.0 F 99 36 111/67 97
04/26/25 18:07 04/27/25 06:30 04/27/25 06:30 04/27/25 06:00 04/27/25 06:30
Vital Signs
Temp Pulse Resp BP Pulse Ox
98.0 F 99 36 111/67 97
04/26/25 18:07 04/27/25 06:30 04/27/25 06:30 04/27/25 06:00 04/27/25 06:30
Intake & Output
04/25/25 04/26/25 04/27/25 04/28/25
07:59 07:59 07:59 07:59
Output Total 2024
Balance -2024 / -2024
Physical Exam
Physical Exam
GEN: No distress, awake, alert, oriented x3. obese
HEENT: supple, anicteric, mmm, eomi
LUNGS: Crackles B/L, no wheezes
CV: Reg, S1/S2, 2/6 syst LSB
ABD: soft, BS+, NT/ND
EXT: No cyanosis, clubbing. 1+ edema of B/L LE
NEURO: Gross non-focal
SKIN: Warm, pink, dry. No rash
: [place]
[2025-04-27] MEDS: MAGNESIUM SULFATE 50 IV (10:31)
[2025-04-27] MEDS: KCL 20 MEQ PO (10:31)
[2025-04-27 11:33] LABS: HDL Cholesterol 11 mg/dl; Iron 35 ug/dl (37-170); LDL Cholesterol, Calculated 42 mg/dl; Magnesium 2.4 mg/dl (1.6-2.3); Very Low Density Lipoprotein 19 mg/dl (0-30)
[2025-04-27 11:43] LABS: Total Iron Binding Capacity 295 ug/dl (265-497)
[2025-04-27] MEDS: LOW STRENGTH ASPIRIN 81 MG PO (11:51)
[2025-04-27 12:10] LABS: Ferritin 60.7 ng/ml (6.24-137)
[2025-04-27 13:23] LABS: Glycohemoglobin (HgbA1c) 5.1 % (4.0-5.6)
--- NOTE | 2025-04-27 13:54 | CS.PSYCHR ---
Consult Summary - Psychiatry
-
pt seen by me, concern for pt's medical decision making capacity.
29 yo woman brought to ED by father after he became concerned about decline in her communication ability with him (they do no live together, she lives with her grandparents) While he was making arrangements to see her, her aunt stopped by and became
alarmed at her difficulty breathing, phoned him and said she thought she needed ED. Father hurried over and brought her to ED. States he had to assist her with leaving house and getting into his car, very unlike her.
In ED found to have large flabby heart with EF of 24%, unclear why.
No prior medical history, only psychiatric history is sense of many in family that she 'is on the spectrum.' Parents , mother now out of picture with new boyfriend, father here with pts two younger sisters, They all report that pt has
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 Not working currently, no romantic relationships (maybe one online, none in
person) Lives in room in grandparents' house, which has been found to be infested with mice ('nests there')
Grandparents have thought her current subdued interactions were due to depression.
Graduated high school, may have had some educational supports (sisters not sure). Father had wanted her 'tested' for autism but apparently never happened. Family states she is normally very talkative
Family history sig for lupus in mother
On no meds, never hospitalized
On exam pt is clearly uncomfortable, some struggling to breathe. No spontaneous speech. Awake and alert, knows she is in [facility] (looks at wall for confirmation.) Cooperative but difficult to hear due to low volume. Has Stitch doll at
her bedside. Able to state that she does not feel she is thinking clearly and that her father should make medical decisions for her.
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
Spoke with father and sisters at length. Plan is for pt to go to live with father and sisters on discharge. Father agrees to make decisions for patient's care.
[2025-04-27] MEDS: FEOSOL 325 MG PO (14:34)
--- NOTE | 2025-04-27 15:21 | PN.CDI ---
CDI
- -
CDI:
Physician Documentation Request
Admit Date: 04/26/25 17:01
Dear Doctor Peral,
Clinical Indicators:
Height: 5 ft 5 in
Weight: 281 lbs 4.9 oz
BMI: 46.8
04/27 note, 'BMI: 46.8 (obese)'
Please provide an associated diagnosis related to the abnormal BMI (BMI > or = to 40), such as:
Obesity
Severe or morbid obesity
Other, please specify
Use of terms such as suspected, likely, concern for, or probable (associated with a specific diagnosis that is being evaluated, monitored, or treated as if it exists) are acceptable and can be coded in the inpatient setting, when documented at the
time of discharge.
Thank you,
MAKENNA Pittman RN
CDI Specialist
available via tiger text
Please use your independent medical judgment in providing your response.
[2025-04-27] MEDS: FERRLECIT 110 MG IV (17:11)
[2025-04-27 17:20] LABS: Urine Character Slightly Cloudy (Clear)
[2025-04-27 18:14] LABS: C-Reactive Protein 142.80 mg/L (0.0-10.00)
[2025-04-27 18:37] LABS: Urine White Cell 16-20 /HPF (0-5)
[2025-04-27 20:24] LABS: Hepatitis B Surface Antigen Negative (Negative)
[2025-04-27 20:42] LABS: Hepatitis A Antibody, Total Negative (Negative); Hepatitis C Antibody Negative (Negative)
--- NOTE | 2025-04-28 01:02 | PTCARENOTE ---
Pt was transferred from ER into 2245. Pt is AAOx3 ST on the monitor VSS. Yuen draining clear yellow. Family at bedside. Call hester within reach. POC discussed with pt and family.
[2025-04-28 02:30] VITALS: BP 126/79
[2025-04-28 03:14] VITALS: BMI 46.1
[2025-04-28 03:20] LABS: Hematocrit 30.0 % (37.0-47.0); Hemoglobin 9.3 g/dL (12.0-16.0); Mean Corp Hgb Conc. 31.0 g/dL (33.0-37.0); Mean Corpuscular Volume 77.9 fL (81.0-99.0); Nucleated Red Blood Cells % 0.4 %; Platelet Count 95 10^3/uL (130-400); Red Cell Dist. Width 15.6 % (11.5-14.5)
[2025-04-28 03:28] LABS: ALT (SGPT) 145 U/L (0-35); AST (SGOT) 50 U/L (14-36); Albumin 3.1 g/dl (3.5-5.0); Alkaline Phosphatase 116 U/L (38-126); Blood Urea Nitrogen 40 mg/dl (7-17); Calcium 8.2 mg/dl (8.4-10.2); Carbon Dioxide 26 mmol/L (22-30); Chloride 102 mmol/L (98-107); Estimated Creatinine Clearance 70 ml/min; Glucose 90 mg/dl (70-99); Magnesium 2.4 mg/dl (1.6-2.3); Potassium 3.1 mmol/L (3.5-5.1); Sodium 138 mmol/L (135-145); Total Protein 6.1 g/dl (6.3-8.2); eGFR 45.05
[2025-04-28] MEDS: KCL 40 MEQ PO (04:42)
[2025-04-28 07:19] VITALS: BP 117/76
--- NOTE | 2025-04-28 08:32 | W.PN.HOSP.TC ---
Addendum entered and electronically signed by Calin Russell DO 04/28/25 12:11:
NSVT/torsades. Per cardiology had episode of ventricular tachycardia that was transient. QTc initially prolonged. Continue to replete K >4 and mag >2. Add metoprolol XL when okay with cardiology
Original Note:
Today's Communication/Plan
-
- Continue IV lasix 40mg bid
- Losartan 25mg PO daily
- If Cr worsens, consider hydralazine alternative
- ASA 81mg
- Okay for O2 support at night PRN
- Will add GDMT stepwise as BP & renal fxn tolerate (currently ARB; holding on starting SGLT2i, MRA, BB for now)
- Lyme, ehrlichiosis, anaplasmosis, Singh Ma spotted fever pending
- Hantavirus pending in s/o mice infestation
- JOAQUÍN, ANCA, RF, complements pending
- Hold on viral panel given [facility] lab restrictions (parvovirus B19, HHV6, coxsackievirus, adenovirus, echovirus, CMV, HIV)
- Plan for heart cath Wednesday
- Plan for cardiac MRI on Wednesday
- Repeat echo once volume status resolved, eval for need for MV replacement
- Rheum curbside today
- Long-term, consider outpatient genetics workup if unable to determine other etiology of DCM
- Cards following, appreciate recs
- Tele
- Keep K>4, Mg>2
- SLT for swallowing difficulty
Assessment / Plan
Assessment / Plan
Elodia Mcadams is a 29yo F w no significant pmh who p/w subacute dyspnea & GLORIA, found to have cardiomegaly, pulmonary edema, LVEF 24%, & severe MR all c/f acute HFrEF in s/o cardiomyopathy of unknown etiology.
#Acute HFrEF (24%)
#Severe MR
#Dilated cardiomyopathy
#Tachypnea, improved
#Encephalopathy in s/o acute illness
Pt presents w ~1-2 weeks of worsening dyspnea and GLORIA. CXR (04/26): cardiomegaly & small bilat pleural effusions. Echo (04/26): LVEF 24%, global hypokinesis, severely dilated L ventricle, severe MR, mild TR, pulm artery pressure estimated 44mmHg. On
presentation - tachycardic, tachypneic without hypoxia or CP (98% RA but RR in 50s > put on 3L NC). BUN elevated 44. ABG w pH of 7.39, pCO2 of 34.
Precipitating dilated cardiomyopathy of unknown etiology. Ddx dilated cardiomyopathy: CAD (less likely in young pt, lipid panel & Ha1c wnl) vs. viral (no hx of ppt sx, possible subclinical viral infection, micro pending) vs. tick-borne bacterial (no
hx exposure, micro pending) vs. genetic syndromes (to clarify fam hx) vs. drug/alcohol toxicity (denies use) vs. sarcoid/autoimmune (pending workup). Fam hx of some HF, unknown etiology. Hx on presentation - 'No fever. No tick bites. No rashes. No
cough. No recent travel.' Bedroom at home has mice infestation. She does not smoke or drink alcohol or use drugs. Rash on arms/legs reported as there 'awhile', not petechial/purpuric, blanchable, not targetoid, not in typical autoimmune
distribution. Blood parasites smear negative, flu a/b negative, covid negative. Blood cx no growth. Hepatitis serologies negative. CRP elevated 142.8, ESR elevated 67. UA w 3+ occult blood, 11-15 rbc, 16-20 wbc, albumin & ketones negative; culture
pending.
This am: tachycardic 104bpm; RR improving, 20. Satting 94% on room air (s/p NC overnight to sleep w SOB, 91% RA). Fluid balance -2760 ml. Afebrile, normotensive. WBC 14.2>11.8>10.9 today, likely elevated in s/o inflammatory state.
- Continue IV lasix 40mg bid
- Losartan 25mg PO daily
- If Cr worsens, consider hydralazine alternative
- ASA 81mg
- Okay for O2 support at night PRN
- Will add GDMT stepwise as BP & renal fxn tolerate (currently ARB; holding on starting SGLT2i, MRA, BB for now)
- Lyme, ehrlichiosis, anaplasmosis, Singh Ma spotted fever pending
- Hantavirus pending in s/o mice infestation
- JOAQUÍN, ANCA, RF, complements pending
- Hold on viral panel given [facility] lab restrictions (parvovirus B19, HHV6, coxsackievirus, adenovirus, echovirus, CMV, HIV)
- Plan for heart cath Wednesday
- Plan for cardiac MRI on Wednesday
- Repeat echo once volume status resolved, eval for need for MV replacement
- Rheum curbside today
- Long-term, consider outpatient genetics workup if unable to determine other etiology of DCM
- Cards following, appreciate recs
#Long QT
#Trop elevation, resolved
Trop likely elevated in 2/2 nonischemic myocardial injury s/o acute HF. Peaked at 0.207, no longer trending. EKG (04/26): prolonged QT 500 & sinus tachy. C/f prior episode of torsades. Low suspicion for ACS given EKG & lack of CP.
- Keep Mg>2, K>4, replete as needed
- Tele
#Hypokalemia
K today: 4.1>3.3>3.1, s/p repletion yesterday. In s/o IV lasix.
- S/p 40meq KCl early this am
- Continue 20meq KCl daily
- Replete KCl with another 40meq today
- Keep Mg>2, K>4, replete as needed
#Elevated Cr, suspected cardiorenal
Unknown baseline Cr but pt without known renal condition at baseline. Elevated Cr: 1.6>1.6>1.6 likely 2/2 cardiorenal syndrome in s/o acute HF.
- Continue to monitor w diuresis
- Follow urine cx
#Anemia, iron deficiency
Likely combination of heavy menstrual period over last week and inflammatory state. Microcytic anemia, Fe deficiency. Hgb 9.0>8.8>9.3. TIBC 295 w 11% saturation. Ferritin 60.7 S/p PO iron 04/27.
- Trend Hgb
- Ferrous sulfate 325 mg again today
- Transfuse if hgb<7
#SIRS, resolved
Pt no longer meeting SIRS criteria (only tachycardia). WBC trending down 14.2>11.8>10.9; RR normalized. Low suspicion for infectious etiology given afebrile, no localizing sx or exposure, WBC trending down in absence of abx, elevated HR explained by
acute HF. Lactate not elevated, 1.7. Will continue to monitor pending micro labs.
-Monitor pending micro results
-Continue mgmt of HF as above
-Monitor vitals closely
#Transaminitis, resolving
Likely 2/2 hepatic congestion in s/o volume overload 2/2 acute HFrEF. Corroborated by improving ALT/AST s/p diuresis. t bili 3.1>2.9>3.0; AST 253>103>54; ALT 247>210>145
- Continue to trend AST/ALT, tbili
-Continue mgmt of HF as above
#Chronic
-Suspected mild autism/Asperger's, father c/f capacity - psych consult 04/27, father will make decisions re: patient's care
-Asthma - albuterol
#Global
-DVT ppx: heparin
-Diet: cholesterol lowering; consulted SLT 04/28 to eval for swallowing difficulty
-Code: full
-Dispo: plan for pt to go to live with father and sisters on discharge; pending resolution of HF
Anticipated Discharge: > 48 hours
Subjective/Interval History
-
Date of Service: April 28, 2025
Pt groggy this am, unable to verbalize full sentences, speech somewhat slurred. Aunt (RN at [employer]) at bedside. Pt able endorse 'a little' SOB & CP.
Objective Data
-
Labs:
Laboratory Results
04/28/25
02:43
WBC 10.9 H
Hgb 9.3 L
Hct 30.0 L
Plt Count 95 L
Sodium 138
Potassium 3.1 L
Chloride 102
Carbon Dioxide 26
BUN 40 H
Creatinine 1.6 H
Glucose 90
Calcium 8.2 L
Total Bilirubin 3.0 H
AST 50 H
ALT 145 H
Alkaline Phosphatase 116
Vital Signs:
Vital Signs
Temp Pulse Resp BP Pulse Ox
97.5 F 104 20 117/76 96
04/28/25 07:17 04/28/25 07:19 04/28/25 07:17 04/28/25 07:19 04/28/25 07:17
I&O
04/27/25 04/28/25 04/29/25
06:59 06:59 06:59
Intake Total 240 / 240
Output Total 1824 3200 / 3200
Balance -1824 -2024 -0 / -2960
Review of Systems
-
Unable to obtain full review of systems at this time due to: Patient Non-verbal
History Source: Patient and Family
Constitutional: Reports No Symptoms
Respiratory: Reports Trouble Breathing (some)
Cardiac: Reports Chest Pain (some)
Abdomen/GI: Reports No Symptoms
Musculoskeletal: Reports Other (improving leg swelling )
Physical Exam
-
General: Appears in Distress (appears to be tachypneic, not comfortable), Conversant (able to converse in 1-word sentences) and Obese (severe obesity )
HEENT: Normocephalic, Atraumatic and Anicteric
Respiratory: Clear to Auscultation and Accessory Resp Muscle Use (none noted; visible heavy breathing; O2 NC in place )
Cardiac: Regular Rhythm and Murmur
GI: Soft and Nontender
Genito-urinary: Yuen
Musculoskeletal: Other (xavi CASTRO improved from yesterday; 1+ foot, trace to mid-ramsey )
Skin: Warm and Dry
Neuro: Awake and Slurred Speech
Data Reviewed
-
Total Time Spent with Patient (in minutes): 10
Critical Care Time (in minutes): 45
Labs: Labs Reviewed by me
[2025-04-28] MEDS: LOW STRENGTH ASPIRIN 81 MG PO (09:19)
[2025-04-28] MEDS: HEPARIN 5000 UNITS SC ×2 (09:19→20:10)
[2025-04-28] MEDS: LASIX 40 MG IV ×2 (09:24→16:38)
[2025-04-28] MEDS: COZAAR 25 MG PO (09:25)
[2025-04-28] MEDS: FEOSOL 325 MG PO (09:25)
--- NOTE | 2025-04-28 10:07 | W.PN.CARDCBS ---
Addendum entered and electronically signed by Juan Duran MD 04/28/25 10:39:
Patient seen and examined
Sinus rhythm and sinus tachycardia on telemetry
No significant ventricular arrhythmias this morning
She appears somewhat withdrawn
Exam:
����Physical Exam
���������������������General:��no apparent distress, not acutely ill
���������������������������Neck:��supple. no meningeal signs. normal psoterior pharynx����������������������
���������������������������Heart:��s1/s2 regular rate and rhythm, no murmur. equal radial pulses.
��������������������������Lungs: ��no acute respiratory distress. clear bilaterally
����������������������Abdomen:�normal bowel sounds. not tender. no CVAT
��������������������������Neuro:��alert and oriented. no focal neurological deficits
������������������������������Skin: ��no rash
�����������������������Psychiatric:�well kept. interactive and cooperative
�����������������������Extremities:��no edema. no calf tenderness. negative homans. good distal pulses
Impression:
Presented to the ER with acute hypoxic respiratory failure and edema 04/26/2025
Acute hypoxic respiratory failure
Acute HFrEF
Newly diagnosed CM EF 20 to 25% by echo 04/26/2025
Severe MR
Elevated troponin
ROGELIO
Anemia, initial Hgb 9 on 04/26/2025
Leukocytosis
Thrombocytopenia
Hyponatremia
Elevated lactic acid level
Elevated LFTs
Echo 04/26/2025: EF 24%, global hypokinesis, severe MR, mild TR, PAP 44 mmHg
Plan:
-Echocardiogram showed EF 20 to 25% with severe MR. Patient is not sure if she has ever been told she has a murmur in the past
-Troponin elevated at 0.2 and downtrending. No chest pain. start aspirin 81mg daily
-Continue diuresis through and would consider for cardiac catheterization on Wednesday
-Patient denies alcohol use and family also denies patient having any alcohol use disorder. No reports of illicit drug use and patient also denies. There is no family history of cardiomyopathy. She will also need cardiac MRI
-continue cozaar for afterload reduction
-Eventually start Coreg. Eventually add spironolactone and SGLT2 inhibitor, if able to afford
-CM consult to help with determination of insurance coverage and to see if patient qualifies for Medicaid.
-Patient is anemic with Hgb of 8.8, microcytic. Patient reports she has had a menstrual cycle for 2 weeks.
-d/w nursing. Discussed with family at bedside
Original Note:
Today's Communication / Plan
-
Continue IV diuresis
Tentative R/L cath on Monday 04/30
For cardiac MRI
Continue Cozaar
Impression / Plan
-
PCP: None
Cardiology: None
Impression:
Presented to the ER with acute hypoxic respiratory failure and edema 04/26/2025
Acute hypoxic respiratory failure
Acute HFrEF
Newly diagnosed CM EF 20 to 25% by echo 04/26/2025
Severe MR
Elevated troponin
ROGELIO
Anemia, initial Hgb 9 on 04/26/2025
Leukocytosis
Thrombocytopenia
Hyponatremia
Elevated lactic acid level
Elevated LFTs
Echo 04/26/2025: EF 24%, global hypokinesis, severe MR, mild TR, PAP 44 mmHg
Plan:
-Weight continues to trend down on IV Lasix. Creatinine remained stable at 1.6. LFTs improving
-Remains in sinus rhythm/sinus tach with 1 4 beat run of NSVT overnight. Continue potassium and magnesium repletion. Follow QTc by EKG
-Echocardiogram showed EF 20 to 25% with severe MR. Patient is not sure if she has ever been told she has a murmur in the past
-Troponin elevated at 0.2 and downtrending. No chest pain. start aspirin 81mg daily
-Continue diuresis through and would consider for cardiac catheterization on Wednesday
-Patient denies alcohol use and family also denies patient having any alcohol use disorder. No reports of illicit drug use and patient also denies. There is no family history of cardiomyopathy. She will also need cardiac MRI
-continue cozaar for afterload reduction
-Eventually start Coreg. Eventually add spironolactone and SGLT2 inhibitor, if able to afford
-CM consult to help with determination of insurance coverage and to see if patient qualifies for Medicaid.
-Patient is anemic with Hgb of 8.8, microcytic. Patient reports she has had a menstrual cycle for 2 weeks.
-d/w nursing. Discussed with family at bedside
PREADMIT DATA:
-Patient came to the ER today with SOB and LE edema and is being admitted with acute HF and cardiology has been consulted. Patient lives with her maternal grandmother and her mother side of the family had been reporting that the patient was more
swollen and SOB. The patient's father was alerted that the patient was more swollen and that while some of the mother's family felt that her symptoms were not severe other family members felt that she needed 911 called and so the father left work
early to check on the patient today then brought her to [facility] ER to be evaluated. The patient's father reports that his daughter is usually conversant and that when he saw her today she was barely responsive and did not appear to be herself, she had
significant LE edema that she does not usually have. Reportedly patient has her own room at her grandmother's house and it is infested with mice because she takes food and drink into her room and does not realize that she has to throw it out.
Family reports that patient has normal intelligence level without any history of developmental delay and was able to graduate high school, but is not currently employed. Patient has never been officially diagnosed as being autistic, but the family
reports that she does not do well with physical touch and has trouble making complex decisions. It is unclear how long patient has been SOB, she told the marine technician is been weeks and she told family it has been a couple of days. Patient denies any
chest pain.
Progress Note - Photographic Process Worker
Subjective
Date of Service: April 28, 2025
Denies chest pain, shortness of breath
Objective
Labs:
04/28/25 02:43
04/28/25 02:43
Labs
Hgb 9.3 g/dL (12.0-16.0) L 04/28/25 02:43
Hct 30.0 % (37.0-47.0) L 04/28/25 02:43
Plt Count 95 10^3/uL (130-400) L 04/28/25 02:43
PT 18.3 Sec (11.4-14.6) H 04/26/25 14:56
INR 1.46 04/26/25 14:56
APTT 36.4 Sec (23.4-35.0) H 04/26/25 14:56
Sodium 138 mmol/L (135-145) 04/28/25 02:43
Potassium 3.1 mmol/L (3.5-5.1) L 04/28/25 02:43
BUN 40 mg/dl (7-17) H 04/28/25 02:43
Creatinine 1.6 mg/dL (0.6-1.0) H 04/28/25 02:43
Glucose 90 mg/dl (70-99) 04/28/25 02:43
Troponins
04/26/25 04/26/25 04/27/25
14:56 18:41 00:01
Troponin I 0.185 H* 0.198 H* 0.207 H*
04/27/25
05:46
Troponin I 0.198 H*
Vital Signs and I&O:
Vital Signs
Temp Pulse Resp BP Pulse Ox
97.5 F 105 20 117/76 96
04/28/25 07:17 04/28/25 09:25 04/28/25 07:17 04/28/25 09:25 04/28/25 07:17
Vital Signs
Temp Pulse Resp BP Pulse Ox
97.5 F 105 20 117/76 96
04/28/25 07:17 04/28/25 09:25 04/28/25 07:17 04/28/25 09:25 04/28/25 07:17
Intake & Output
04/26/25 04/27/25 04/28/25 04/29/25
07:59 07:59 07:59 07:59
Intake Total 240 / 240
Output Total 2024 3000 / 3000
Balance -2024 / -2024 -2759 / -2759
Physical Exam
Physical Exam
GEN: No distress, awake, alert, oriented x3. obese
HEENT: supple, anicteric, mmm, eomi
LUNGS: Crackles B/L, no wheezes
CV: Reg, S1/S2, 2/6 syst LSB
ABD: soft, BS+, NT/ND
EXT: No cyanosis, clubbing. 1+ edema of B/L LE
NEURO: Gross non-focal
SKIN: Warm, pink, dry. No rash
: norwood
[2025-04-28 11:27] VITALS: BP 121/75
[2025-04-28] MEDS: KCL PO (12:10)
--- NOTE | 2025-04-28 12:16 | PTCARENOTE ---
Attempted to give PO potassium, pt unable to swallow pills. Notified Calin Russell. Ordered PO elixer and pt was unable to tolerate. Pt is having trouble swallowing, speech consulted. Pt has a slight upper left lip droop. MD aware. Pt is unable to
answer most questions. Family is at bedside helping facilitate. Pt 02 sat 91% on RA, 2LO2 NC applied and pt came up to 94%. Pt looks SOB and is using accessary muscles to breath. Pt is ST on the monitor, hr 103, BP 121/75. Family and pt educated on
plan of care and pt verbalized understanding. call hester within reach.
[2025-04-28] MEDS: KCL 270 MEQ IV (13:03)
[2025-04-28 14:55] VITALS: BP 117/69
--- NOTE | 2025-04-28 15:51 | W.PN.UPDATE ---
Update Note
Progress Note Update
Rheumatology curbside (Noe Issa) - suspects likely viral but recommends adding on ALEKSANDER for sarcoid, agrees w cardiac MRI, follow JOAQUÍN. Given encephalopathic, could consider LP.
[2025-04-28] MEDS: FERRLECIT 110 MG IV (16:01)
--- NOTE | 2025-04-28 16:17 | PTOTSP ---
Speech therapy
Presentation: Patient's communication was limited which is likely related to her autism but she is able to verbalize her wants/ needs well. Per family, this is not her baseline as she typically communicates more at home.
Swallowing function: Patient was observed with several presentations of thins (straw), puree, and regular consistency solids in which patient appeared to tolerate as she did not exhibit any overt clinical s/sx of aspiration or difficulty with
mastication/ manipulation. Patient is a 'picky eater'. Patient's father circled items in the menu that patient is fond of but the item list was limited. Per father, patient typically has a good appetite but eats poor quality foods (snacks).
Recommendations:
1) continuation of reg/ thin
2) aspiration precautions
3) consider list of preferred foods for intake purposes
4) medications as tolerated
Plan: MULTIGRAPHER will continue to follow to ensure tolerance; pending hospitalization.
--- NOTE | 2025-04-28 17:53 | PTCARENOTE ---
pt continues to be st on the monitor. pt offers no complaints at this time. pt and family educated on plan of care and pt verbalized understanding. pt resting comfortably in bed with family visiting at bedside. call hester within reach.
[2025-04-28 20:02] VITALS: BP 101/60
[2025-04-28 20:11] LABS: Glucose - Point of Care 117 mg/dl (70-99)
[2025-04-28 21:23] LABS: Hematocrit 31.0 % (37.0-47.0); Hemoglobin 9.7 g/dL (12.0-16.0); Mean Corp Hgb Conc. 31.3 g/dL (33.0-37.0); Mean Corpuscular Volume 78.7 fL (81.0-99.0); Nucleated Red Blood Cells % 0 %; Platelet Count 104 10^3/uL (130-400); Red Cell Dist. Width 15.9 % (11.5-14.5)
[2025-04-28 21:27] LABS: Ammonia 10 umol/L (9-30)
--- NOTE | 2025-04-28 21:30 | RESPNOTE ---
notified by RN that the lab states the sample clotted and will need to be redrawn. CNRP notified and ordered a VBG
[2025-04-28 21:39] LABS: Blood Urea Nitrogen 39 mg/dl (7-17); Calcium 8.3 mg/dl (8.4-10.2); Carbon Dioxide 27 mmol/L (22-30); Chloride 105 mmol/L (98-107); Estimated Creatinine Clearance 75 ml/min; Glucose 109 mg/dl (70-99); Magnesium 2.4 mg/dl (1.6-2.3); Potassium 3.6 mmol/L (3.5-5.1); Sodium 138 mmol/L (135-145); eGFR 48.68
[2025-04-28 21:54] LABS: Venous Blood Gas B.E. 5.6 mmol/L (-4 to +4); Venous Blood Gas O2 Sat % 99.1 %
--- NOTE | 2025-04-28 22:09 | PTCARENOTE ---
Assumed care of patient at change of shift. Tele monitor shows Sinus tach, HR in the 100-110's at rest. Afebrile, RR 36, and sating 97% 2L of O2. BP 101/60. Upon assessment pt lethargic, opens eyes when her name is called but then quickly shuts
them. When asked q's pt is able to nod head appropriately. Patient at baseline is able to talk, however pt is not verbally communicating with this RN at this time. Family at bedside said that is unusual from her baseline. Blood sugar obtained w/ a
result of 117. Smita MACE made aware w/ concern in lethargy. Orders obtained for blood work and head CT. Orders carried out. CT completed in department. ABGs obtained by RT Stack, lab called notifying staff that the ABG clotted. Smita MACE
changed the ABGS to venous BG. This RN obtained/sent labs. Call hester within reach.
[2025-04-28 23:12] VITALS: BP 104/60
[2025-04-29] VITALS (12 sets, daily range): BP systolic 77–119; BP diastolic 17–85; BMI 45.9
--- NOTE | 2025-04-29 01:23 | W.PN.UPDATE ---
Update Note
Progress Note Update
2100 RN concerned over pt lethargy today. Father stated pt usually more talkative. Due to ongoing encephalopathy will recheck labs: cbc, bmp ammonia, vbg and obtain CT head;
2200 Labwork essentially unchanged from am. Ammonia normal. VBG with metabolic alkalosis- possibly from diuretic? Ct head showed encephalomalacia of the right temporal lobe compatible with OLD infarct and chronic microvascular ischemic disease with
OLD infarct right frontal deep white matter. After Ct scan pt did perk up and was more awake.
--- NOTE | 2025-04-29 01:44 | PTCARENOTE ---
During hourly rounds. This RN found pt wide awake watching TV. Affect flat. Has no complaints at this time. Tele remains Sinus tach. call hester within reach.
[2025-04-29 06:30] LABS: Hematocrit 31.2 % (37.0-47.0); Hemoglobin 9.5 g/dL (12.0-16.0); Mean Corp Hgb Conc. 30.4 g/dL (33.0-37.0); Mean Corpuscular Volume 80.2 fL (81.0-99.0); Nucleated Red Blood Cells % 0.2 %; Platelet Count 104 10^3/uL (130-400); Red Cell Dist. Width 16.0 % (11.5-14.5)
[2025-04-29 06:48] LABS: Blood Urea Nitrogen 37 mg/dl (7-17); Calcium 8.1 mg/dl (8.4-10.2); Carbon Dioxide 26 mmol/L (22-30); Chloride 104 mmol/L (98-107); Estimated Creatinine Clearance 80 ml/min; Glucose 96 mg/dl (70-99); Magnesium 2.3 mg/dl (1.6-2.3); Potassium 3.5 mmol/L (3.5-5.1); Sodium 137 mmol/L (135-145); eGFR 52.88
--- NOTE | 2025-04-29 08:25 | W.PN.HOSP.TC ---
Today's Communication/Plan
-
-Continue IV lasix 40mg bid
- Losartan 25mg PO daily
- ASA 81mg
- Okay for O2 support at night PRN
- Lyme, ehrlichiosis, anaplasmosis, Singh Nv spotted fever pending
- Hantavirus pending in s/o mice infestation
- JOAQUÍN, ANCA, RF, complements, ALEKSANDER pending
- Plan for heart cath Wednesday
- Plan for cardiac MRI on Wednesday or Wednesday
- Antiphospholipid abs (anticardiolipin, beta2-glycoprotein I), protein c/s, antithrombin-heparin cofactor pending
- Factor V leiden, prothrombin pending
- Neuro consult, appreciate recs
- Update rheumatology, appreciate recs
- Heme-onc consult, appreciate recs
- Start nitrofurantoin 100mg bid for 5-days (04/29-)
- Additional 40meq KCl repletion
Assessment / Plan
Assessment / Plan
Elodia Mcadams is a 29yo F w no significant pmh who p/w subacute dyspnea & GLORIA, found to have cardiomegaly, pulmonary edema, LVEF 24%, & severe MR all c/f acute HFrEF in s/o cardiomyopathy of unknown etiology.
#Acute HFrEF (24%)
#Severe MR
#Dilated cardiomyopathy
#Tachypnea, improved
Pt presented w ~1-2 weeks of worsening dyspnea and GLORIA. CXR (04/26): cardiomegaly & small bilat pleural effusions. Echo (04/26): LVEF 24%, global hypokinesis, severely dilated L ventricle, severe MR, mild TR, pulm artery pressure estimated 44mmHg. On
presentation - tachycardic, tachypneic without hypoxia or CP (98% RA but RR in 50s > put on 3L NC). BUN elevated 44. ABG w pH of 7.39, pCO2 of 34.
Precipitating dilated cardiomyopathy of unknown etiology. Ddx dilated cardiomyopathy: CAD (less likely in young pt, lipid panel & Ha1c wnl; pending cath) vs. viral (no hx of ppt sx, possible subclinical viral infection) vs. tick-borne bacterial (no
hx exposure, micro pending) vs. genetic syndromes (mom hx of some 'electrical disorder' of heart, no known cardiomyopathies in fam hx) vs. drug/alcohol toxicity (denies use) vs. sarcoid/autoimmune (mom with SLE; pending workup). Hx on presentation -
'No fever. No tick bites. No rashes. No cough. No recent travel.' Bedroom at home has mice infestation. She does not smoke or drink alcohol or use drugs. Rash on arms/legs reported as there 'awhile', not petechial/purpuric, blanchable, not
targetoid, not in typical autoimmune distribution. Blood parasites smear negative, flu a/b negative, covid negative. Blood cx no growth. Hepatitis serologies negative. CRP elevated 142.8, ESR elevated 67. UA without proteinuria. Per rheum curbside
04/28, favors viral etiology but recommends following ALEKSANDER & JOAQUÍN, agrees w MRI.
This am: tachycardic 109bpm; tachypneic 28. Satting 99% on 2L NC. Fluid balance -1170 ml. Afebrile, normotensive.
- Continue IV lasix 40mg bid
- Losartan 25mg PO daily
- If Cr worsens, consider hydralazine alternative
- Plan to add GDMT stepwise as BP & renal fxn tolerate (currently ARB; holding on starting SGLT2i, MRA, BB for now)
- ASA 81mg
- Okay for O2 support at night PRN
- Lyme, ehrlichiosis, anaplasmosis, Singh Nv spotted fever pending
- Hantavirus pending in s/o mice infestation
- JOAQUÍN, ANCA, RF, complements, ALEKSANDER pending
- Plan for heart cath Wednesday
- Plan for cardiac MRI on Wednesday or Wednesday
- Repeat echo once volume status resolved, eval for need for MV replacement
- Cards following, appreciate recs
- Long-term, consider outpatient genetics workup if unable to determine other etiology of DCM
- Hold on viral panel given [facility] lab restrictions (parvovirus B19, HHV6, coxsackievirus, adenovirus, echovirus, CMV, HIV)
#Encephalopathy in s/o acute illness
#CT w old infarcts
CT head obtained overnight 04/28 in s/o AMS. CT demonstrated: 'Chronic transcortical infarct in the right temporal lobe with encephalomalacia. Smaller chronic infarct in the white matter of the right frontal lobe. No intra- or extra-axial mass,
hemorrhage, or fluid collection. Mild subcortical, deep, and periventricular white matter low-attenuation, compatible with changes of chronic small vessel ischemic disease.' Possibly 2/2 hypercoagulable state in s/o autoimmune dz potentially
driving cardiomyopathy. See autoimmune w/u pending above. Will add hypercoagulable labs. Also consider ischemic infarcts in s/o vasoconstriction syndrome. Family reports that pt mouth appeared downturned last night & that she favors her R arm over
L. On exam, strength/sensation equal & symmetric bilateral face & UEs when attended to. L UE weaker when asked to squeeze both hands simultaneously, c/w lack of attentiveness. Left-sided spatial neglect is c/w R temporal stroke. R frontal deep white
matter stroke may be contributing to cognitive status decline & incontinence.
- Antiphospholipid abs (anticardiolipin, beta2-glycoprotein I), protein c/s, antithrombin-heparin cofactor pending
- Factor V leiden, prothrombin pending
- Neuro consult, appreciate recs
- Update rheumatology, appreciate recs
#Rash
Erythematous, scattered (somewhat reticular) rash on bilateral forearms, feet, calves. Erythema less notable today, faded from admission. Per father, when he picked her up from grandparents house recently (had been living there for months), rash was
'all over' her arms & legs, 'all up and down.' This was new, never seen before. Less likely vasculitic given +/- blanchability (to recheck today). Not in distribution c/f tick-borne illness. Rash is not pruritic. Given semi-reticular distribution &
c/f antiphospholipid syndrome, c/f autoimmune etiology remains on differential.
- Continue to monitor for improvement
- Follow workup as above
- Heme-onc consult
#L 2nd toe duskiness
Tip of L 2nd toe dark purple. Per father, improving over past few days. Likely 2/2 ischemia in s/o ongoing cardiomyopathy, w c/f hypercoagulable or autoimmune state (e.g. chillblain's). Not likely infectious. No L calf swelling or tenderness.
- Pending workups above
- Continue to monitor for worsening pain in toe or darkening of color
- On heparin for DVT ppx
#Positive urine cx
Pt urine cx positive for gram negative bacilli, e coli, garcia-sensitive. Urine with +leuk esterase and WBC 16-30. Given pt mental status, unable to ascertain if sx are present - asymptomatic bacteriuria vs. simple UTI. Given afebrile & lack of
leukocytosis (WBC 10.8). Family reports that pt had incontinence in lead-up to admission. Nursing reports urine looks cloudy. Will trt empirically alfa w indwelling norwood, although potentially asx bacteriuria.
- Nitrofurantoin 100mg bid for 5-days (04/29-)
- Monitor for complaints of dysuria, suprapubic pain
#Long QT
#Trop elevation, resolved
Trop likely elevated in 2/2 nonischemic myocardial injury s/o acute HF. Peaked at 0.207, no longer trending. EKG (04/26): prolonged QT 500 & sinus tachy. C/f prior episode of torsades. Low suspicion for ACS given EKG & lack of CP.
Today, K 3.5, Mg 2.3.
- Keep Mg>2, K>4, replete as needed
- Telemetry
#Hypokalemia, resolved
K today: 4.1>3.3>3.1>3.5, s/p repletion yesterday. In s/o IV lasix.
- Increase daily KCl to 40meq
- Give additional 40meq K today
#Elevated Cr, suspected cardiorenal
Unknown baseline Cr but pt without known renal condition at baseline. Likely 2/2 cardiorenal syndrome in s/o acute HF.
Today, downtrending from 1.6 to 1.4.
- Continue to monitor w diuresis
#Anemia, iron deficiency
Likely combination of heavy menstrual period over last week and inflammatory state. Microcytic anemia, Fe deficiency. TIBC 295 w 11% saturation. Ferritin 60.7 S/p PO iron 04/27. Hgb 9.0>8.8>9.3>9.5 today.
- Trend Hgb
- Continue IV iron 125mg/bag for 5 bags
- Holding PO iron
- Transfuse if hgb<7
#SIRS, resolving
Pt meeting SIRS criteria due to tachycardia & tachypnea. WBC trending down 14.2>11.8>10.9; RR normalized. Low suspicion for infectious etiology given afebrile, no localizing sx or exposure, WBC trending down in absence of abx, elevated HR/RR
explained by acute HF. Lactate not elevated, 1.7. Will continue to monitor pending micro labs.
-Monitor pending micro results
-Continue mgmt of HF as above
-Monitor vitals closely
#Transaminitis, resolving
Likely 2/2 hepatic congestion in s/o volume overload 2/2 acute HFrEF. Corroborated by improving ALT/AST s/p diuresis. t bili 3.1>2.9>3.0; AST 253>103>54; ALT 247>210>145. Stopped trending.
-Continue mgmt of HF as above
#Chronic
-Suspected mild autism/Asperger's, father c/f capacity - psych consult 04/27, father will make decisions re: patient's care
-Asthma - albuterol
#Global
-DVT ppx: heparin
-Diet: cholesterol lowering, regular w thin liquids per speech eval
-Code: full
-Dispo: plan for pt to go to live with father and sisters on discharge; pending resolution of acute HF
Anticipated Discharge: > 48 hours
Subjective/Interval History
-
Date of Service: April 29, 2025
Father and aunt at bedside today. Patient awake, alert, still able to respond in 1-2 word answers. Still with somewhat slurred speech. Denies any worsening of chest pain or shortness of breath. Per father, her lower extremity edema is improved,
as is the rash on her bilateral arms and legs. Father states that he notices that she favors her right upper extremity over her left upper extremity. Also states that they noticed her mouth turning downwards yesterday evening. States that she is
normally more conversant, not at her baseline. Confirms that mom has diagnosis of lupus. States that duskiness of the left second toe is improving.
Objective Data
-
Labs:
Laboratory Results
04/28/25 04/28/25 04/28/25
21:02 21:05 21:16
WBC 11.3 H
Hgb 9.7 L
Hct 31.0 L
Plt Count 104 L
HCO3 Cancelled Cancelled
Sodium 138
Potassium 3.6
Chloride 105
Carbon Dioxide 27
BUN 39 H
Creatinine 1.5 H
Glucose 109 H
Calcium 8.3 L
04/29/25
06:12
WBC 10.8
Hgb 9.5 L
Hct 31.2 L
Plt Count 104 L
HCO3
Sodium 137
Potassium 3.5
Chloride 104
Carbon Dioxide 26
BUN 37 H
Creatinine 1.4 H
Glucose 96
Calcium 8.1 L
Vital Signs:
Vital Signs
Temp Pulse Resp BP Pulse Ox
97.8 F 109 28 117/72 99
04/29/25 04:27 04/29/25 04:27 04/29/25 04:27 04/29/25 04:27 04/29/25 04:27
I&O
04/28/25 04/29/25 04/30/25
06:59 06:59 06:59
Intake Total 240 / 240 960 / 960
Output Total 3200 / 3200 1650 / 1650
Balance -2960 / -2960 -690 / -690
Review of Systems
-
Unable to obtain full review of systems at this time due to: Patient Non-verbal
History Source: Patient and Family
Constitutional: Reports No Symptoms
Respiratory: Reports Trouble Breathing (somewhat)
Cardiac: Reports Chest Pain (minimal)
Genitourinary: Reports Incontinence
Skin: Reports Rash (rash on arms/legs, not pruritic)
Neuro: Reports Other (fam reports favoring R arm over L; [facility] reports +/-mouth drooping )
Physical Exam
-
General: Respiratory Distress (visibly breathing rapidly ), Conversant (able to converse in 1-word sentences), Slurred Speech and Obese (severe obesity )
HEENT: Normocephalic, Atraumatic and Anicteric
Respiratory: Clear to Auscultation and Accessory Resp Muscle Use (none noted; visible heavy breathing; O2 NC in place )
Cardiac: Regular Rhythm and Murmur
GI: Soft and Nontender
Genito-urinary: Norwood (yellow urine in bag)
Musculoskeletal: Other (bilat GLORIA improved from yesterday, trace only ; L second toe with purple tip )
Skin: Warm, Dry and Rash (erythematous (dark/burnt out appearing), macular rash in semi reticular pattern on bilateral forearms, calves, feet dorsum; erythema faded from yesterday)
Neuro: Awake and Slurred Speech
Data Reviewed
-
Total Time Spent with Patient (in minutes): 15
Critical Care Time (in minutes): 60
CT Scan: Image personally visualized and interpreted, Report Reviewed by me and Discussed with Family
Labs: Labs Reviewed by me and Discussed with Family
[2025-04-29] MEDS: KCL 40 MEQ PO ×2 (08:33→13:00)
[2025-04-29] MEDS: HEPARIN 5000 UNITS SC ×2 (08:36→20:36)
[2025-04-29] MEDS: LOW STRENGTH ASPIRIN 81 MG PO (08:37)
[2025-04-29] MEDS: LASIX 40 MG IV ×2 (08:37→16:32)
[2025-04-29] MEDS: COZAAR 25 MG PO (08:39)
[2025-04-29] MEDS: FEOSOL 325 MG PO (08:39)
--- NOTE | 2025-04-29 09:50 | PTCARENOTE ---
pt noted to have 19 beat run of VT, notified dr. weiss, no changes at this time. pt felt 'flutter in chest.' pt offers no other complaints at this time. pt now st on the monitor, vss. pt resting in bed with dad at beside. both educated on plan of
care and both verbalized understanding. call hester within reach.
[2025-04-29 10:42] LABS: C-Reactive Protein 135.40 mg/L (0.0-10.00)
--- NOTE | 2025-04-29 11:12 | W.PN.CARDCBS ---
Today's Communication / Plan
-
Very low-dose Coreg
Low-dose amiodarone
Cath tomorrow
Diuresis
Impression / Plan
-
PCP: None
Cardiology: None
Impression:
Presented to the ER with acute hypoxic respiratory failure and edema 04/26/2025
Acute hypoxic respiratory failure
Acute HFrEF
Newly diagnosed CM EF 20 to 25% by echo 04/26/2025
Severe MR
Elevated troponin
ROGELIO
Anemia, initial Hgb 9 on 04/26/2025
Leukocytosis
Thrombocytopenia
Hyponatremia
Elevated lactic acid level
Elevated LFTs
Echo 04/26/2025: EF 24%, global hypokinesis, severe MR, mild TR, PAP 44 mmHg
Plan:
- Labs remained stable and weight is trending improving
-Continue potassium and magnesium repletion. Follow QTc by EKG
-Echocardiogram showed EF 20 to 25% with severe MR. Patient is not sure if she has ever been told she has a murmur in the past
-Troponin elevated at 0.2 and downtrending. No chest pain. start aspirin 81mg daily
-Continue diuresis through weekend and would consider for cardiac catheterization on Wednesday
-Patient denies alcohol use and family also denies patient having any alcohol use disorder. No reports of illicit drug use and patient also denies. There is no family history of cardiomyopathy. She will also need cardiac MRI
-continue cozaar for afterload reduction
- Will try very low-dose dose Coreg today to see if she tolerates as she is having polymorphic VT on monitor
-Will also add low-dose amiodarone given her nonsustained VT
-CM consult to help with determination of insurance coverage and to see if patient qualifies for Medicaid.
-Patient is anemic with Hgb of 8.8, microcytic. Patient reports she has had a menstrual cycle for 2 weeks.
-d/w nursing. Discussed with family at bedside. Reasonable to consider cardiac MRI as outpatient. Her mother does not have a 'electrical 'history of the heart and her father is finding out that history for me. No one in the family has a history
of having pacemakers or defibrillators.
PREADMIT DATA:
-Patient came to the ER today with SOB and LE edema and is being admitted with acute HF and cardiology has been consulted. Patient lives with her maternal grandmother and her mother side of the family had been reporting that the patient was more
swollen and SOB. The patient's father was alerted that the patient was more swollen and that while some of the mother's family felt that her symptoms were not severe other family members felt that she needed 911 called and so the father left work
early to check on the patient today then brought her to [facility] ER to be evaluated. The patient's father reports that his daughter is usually conversant and that when he saw her today she was barely responsive and did not appear to be herself, she had
significant LE edema that she does not usually have. Reportedly patient has her own room at her grandmother's house and it is infested with mice because she takes food and drink into her room and does not realize that she has to throw it out.
Family reports that patient has normal intelligence level without any history of developmental delay and was able to graduate high school, but is not currently employed. Patient has never been officially diagnosed as being autistic, but the family
reports that she does not do well with physical touch and has trouble making complex decisions. It is unclear how long patient has been SOB, she told the payroll technician is been weeks and she told family it has been a couple of days. Patient denies any
chest pain.
Progress Note - Rigging Slinger
Subjective
Date of Service: April 29, 2025
Feeling a little better
Objective
Labs:
04/29/25 06:12
04/29/25 06:12
Labs
Hgb 9.5 g/dL (12.0-16.0) L 04/29/25 06:12
Hct 31.2 % (37.0-47.0) L 04/29/25 06:12
Plt Count 104 10^3/uL (130-400) L 04/29/25 06:12
PT 18.3 Sec (11.4-14.6) H 04/26/25 14:56
INR 1.46 04/26/25 14:56
APTT 36.4 Sec (23.4-35.0) H 04/26/25 14:56
Sodium 137 mmol/L (135-145) 04/29/25 06:12
Potassium 3.5 mmol/L (3.5-5.1) 04/29/25 06:12
BUN 37 mg/dl (7-17) H 04/29/25 06:12
Creatinine 1.4 mg/dL (0.6-1.0) H 04/29/25 06:12
Glucose 96 mg/dl (70-99) 04/29/25 06:12
Troponins
04/26/25 04/26/25 04/27/25
14:56 18:41 00:01
Troponin I 0.185 H* 0.198 H* 0.207 H*
04/27/25
05:46
Troponin I 0.198 H*
Vital Signs and I&O:
Vital Signs
Temp Pulse Resp BP Pulse Ox
98.2 F 109 24 119/76 97
04/29/25 07:42 04/29/25 10:00 04/29/25 07:42 04/29/25 08:39 04/29/25 07:42
Vital Signs
Temp Pulse Resp BP Pulse Ox
98.2 F 109 24 119/76 97
04/29/25 07:42 04/29/25 10:00 04/29/25 07:42 04/29/25 08:39 04/29/25 07:42
Intake & Output
04/27/25 04/28/25 04/29/25 04/30/25
06:59 06:59 06:59 06:59
Intake Total 240 / 240 960 / 960
Output Total 1824 3200 / 3200 1650 / 1650
Balance -1824 / -2024 -2960 / -2960 -690 / -690
Physical Exam
Physical Exam
����Physical Exam
���������������������General:��no apparent distress, not acutely ill
���������������������������Neck:��supple. no meningeal signs. normal psoterior pharynx
������������������������
���������������������������Heart:��s1/s2 regular rate and rhythm, no murmur. equal radial pulses.
��������������������������Lungs: ��no acute respiratory distress. clear bilaterally
����������������������Abdomen:�normal bowel sounds. not tender. no CVAT
��������������������������Neuro:��alert and oriented. no focal neurological deficits
������������������������������Skin: ��no rash
�����������������������Psychiatric:�well kept. interactive and cooperative
�����������������������Extremities:��no edema. no calf tenderness. negative homans. good distal pulses
��
�
[2025-04-29] MEDS: COREG 1.5625 MG PO (13:00)
[2025-04-29] MEDS: MACROBID 100 MG PO ×2 (13:00→21:53)
[2025-04-29 15:16] LABS: Magnesium 2.3 mg/dl (1.6-2.3); Potassium 4.1 mmol/L (3.5-5.1)
[2025-04-29] MEDS: FERRLECIT IV (15:43)
[2025-04-29 16:14] LABS: Glucose - Point of Care 117 mg/dl (70-99)
--- NOTE | 2025-04-29 16:28 | W.PN.UPDATE ---
Update Note
Progress Note Update
spoke with nursing by phone. She has not been mentating well for last 3 days but had a better morning. Will check CXR, ABG, lytes and hold evening coreg. Run of PMVT this afternoon so will increase amiodarone to 200mg tid. RHC/C tomorrow
tentatively may need to move up with further clinical changes. Empirically adding low dose milrinone 0.125mcg/kg/min.
--- NOTE | 2025-04-29 16:49 | W.PN.UPDATE ---
Update Note
Progress Note Update
Alerted by RN that pt with worsening tachypnea, struggling to breathe. Evaluated pt at bedside, discussed w attending.
Pt with some accessory muscle use, grunting, struggling to breathe; diaphoretic. On exam, no coarse lung sounds or crackles noted. Pt O2 sat >95% on RA throughout episode. Afebrile throughout. Had run of PMVT this afternoon. No other precipitating
event. BP 90s/60s. RR 28, HR 106.
Pt was due to receive lasix dose, held in s/o hypotension. Pt due to receive amiodarone, held b/c unable to swallow pills in s/o respiratory distress.
Pt started on nonrebreather mask to assist w respiration. Cards made aware, starting low dose milrinone 0.125mcg/kg/min. Midline ordered for milrinone admin. ECG ordered - with minimal changes from prior 04/27 ECG (QTcB int 494, read as 'anterior
infarct vs. lead placement vs. normal variant'). Portable CXR demonstrated increased haziness/congestion in R lung field compared to prior (04/26). Potentially 2/2 worsening CO in setting of cardiomyopathy vs. aspiration.
Ordered ABG and troponins, pending.
Will continue nonrebreather mask & continue to evaluate clinical status, low threshold for transfer to ICU if worsening tachypnea or O2 sat.
--- NOTE | 2025-04-29 16:52 | W.PN.UPDATE ---
Update Note
Progress Note Update
Was notified by nursing that patient appeared more lethargic and with increased work of breathing relative to previous. Vitals heart rate 105/min with sinus rhythm, SpO2 99% on NRB, blood pressure 107/74 mmHg, afebrile.
I evaluated the patient at the bedside and she was on nonrebreather mask with tachypnea, lethargy. Ordered ECG that is largely unchanged from 04/27 study, troponin pending. ABG pending. CXR obtained with worsening right-sided haziness/congestion,
improvement to previous cardiomegaly though left hemidiaphragm unable to be fully assessed.
Question worsening cardiac output in the context of active cardiac process such as viral myocarditis. Agree with empiric low-dose milrinone that was started by cardiology. Will follow-up ABG and troponin. Continue to closely monitor oxygenation
status, hemodynamics, mental status. If patient has any further worsening will upgrade to ICU level of care.
[2025-04-29 16:58] LABS: B.E. 3.4 mmol/L; HCO3 26.7 mmol/L (21-28); O2 Saturation % 100.0 % (94-98); PCO2 35 mmHg (32-35); PO2 287 mmHg (83-108)
[2025-04-29 17:26] LABS: Troponin I 0.074 ng/ml
[2025-04-29] MEDS: PRIMACOR 20 MG 100 IV (17:45)
[2025-04-29] MEDS: FERRLECIT 110 MG IV (17:49)
--- NOTE | 2025-04-29 18:31 | CON.NEURO ---
Neuro Assessment/Plan
Assessment
Head CT imgs rev'd, Stroke looks chronic, at least a month old or even potentially in utero. She also has a lot more brain atrophy than I would expect a 29-year-old. Even if she had bad vascular risk factors.
Suspect stroke recrudescence because I do detect left-sided weakness and sensory neglect.
currently too sick with dilated cardiomyopathy for any neuro workup right now, as all this is chronic. Would obtain brain MRI and carotid imaging after she is stable, and with this head CT and possible autism spectrum disorder, outpatient genetic
testing would be advised.
Consultation
Order
Date of Consultation: 04/29/25
Requesting Provider: Perla
Reason for Consult: stroke
Subjective/Objective
Subjective Data
Date of Service: April 29, 2025
29yo F with no notable pmh who presented w acute HFrEF, found to have dilated cardiomyopathy. workup is in progress for infectious vs. autoimmune vs. CAD etiology for cardiomyopathy. pt has been encephalopathic/AMS from her baseline (baseline with
mild intellectual disability).
family notes that patient favors RUE over LUE and incontinence.
Head CT was obtained showing chronic infarct right
Objective Data
Vital Signs
Temp Pulse Resp BP Pulse Ox
36.8 C 102 22 111/78 100
04/29/25 15:07 04/29/25 18:02 04/29/25 15:07 04/29/25 18:02 04/29/25 18:02
Lab Results
04/29/25 06:12
04/29/25 13:29
PT 18.3 Sec (11.4-14.6) H 04/26/25 14:56
INR 1.46 04/26/25 14:56
APTT 36.4 Sec (23.4-35.0) H 04/26/25 14:56
Sodium 137 mmol/L (135-145) 04/29/25 06:12
Potassium 4.1 mmol/L (3.5-5.1) 04/29/25 13:29
BUN 37 mg/dl (7-17) H 04/29/25 06:12
Glucose 96 mg/dl (70-99) 04/29/25 06:12
Calcium 8.1 mg/dl (8.4-10.2) L 04/29/25 06:12
Phosphorus 3.3 mg/dl (2.5-4.5) 04/28/25 02:43
Bpf-W-Tjaahnpyccy Pept > 88389 pg/ml 04/26/25 14:56
Mqs-S-Hirvucnuolh Pept Cancelled 04/26/25 14:56
LDL Cholesterol, Calc Cancelled 04/27/25 11:07
Patient Allergies
No Known Allergies Allergy (Verified 04/26/25 19:27)
Physical Exam
-
AAOx3 with difficulty
?mild dysarthria and left facial droop (wearing nonrebreather O2 mask)
LUE/LE 5-/5, L pronator drift
Left sensory neglect
Medications
-
Active Medications
Generic Name Dose Route Start Last Admin
Trade Name Freq PRN Reason Stop Dose Admin
Acetaminophen 650 mg 04/26/25 17:58
Acetaminophen 325 Mg Tablet PO 05/24/25 17:57
Q4HPRN PRN
mild pain/PRO/temp> 100.4F
Amiodarone HCl 200 mg 04/29/25 22:00
Amiodarone 200 Mg Tablet PO 05/27/25 21:59
TID RICKI
Aspirin 81 mg 04/27/25 11:00 04/29/25 08:37
Aspirin 81 Mg Chewable Tablet PO 05/25/25 10:59 81 mg
DAILY RICKI Administration
Carvedilol 1.5625 mg 04/29/25 20:00
Carvedilol 3.125 Mg Tablet PO 05/27/25 19:59
BID RICKI
Ferrous Sulfate 325 mg 04/27/25 13:00 04/29/25 08:39
Ferrous Sulfate 325 Mg Tablet PO 05/25/25 12:59 325 mg
On Hold: 04/29/25 11:26 DAILY RICKI Administration
Furosemide 40 mg 04/27/25 08:00 04/29/25 16:32
Furosemide 40 Mg (10 Mg/Ml) 4 Ml Vial IV 05/25/25 07:59 40 mg
BID AT 0800,1600 RICKI Administration
Heparin Sodium 5,000 units 04/26/25 20:00 04/29/25 08:36
Heparin 5,000 Units/Ml 1 Ml Vial SC 05/24/25 19:59 5,000 units
Q12 RICKI Administration
Ferric Sodium Gluconate 110 mls @ 110 mls/hr 04/27/25 15:45 04/29/25 17:49
Complex 125 mg/ Sodium IV 05/01/25 14:59 110 mls
Chloride DAILY@1400 RICKI Administration
Milrinone Lactate/Dextrose 20 mg in 100 mls @ 0 mls/hr 04/29/25 17:00 04/29/25 17:45
Primacor 20 Mg IV 100 mls
PER PROTOCOL RICKI Administration
Protocol
Per Protocol
Insulin Aspart 0 units 04/29/25 16:30
Insulin Aspart Low Resistance 300 Units/3 Ml Pen.Injctr SC 05/27/25 16:29
AC RICKI
Protocol
Losartan Potassium 25 mg 04/26/25 18:00 04/29/25 08:39
Losartan 25 Mg Tablet PO 05/24/25 17:59 25 mg
On Hold: 04/29/25 18:26 DAILY RICKI Administration
Resume: 05/01/25 06:00
Nitrofurantoin Macrocrystals 100 mg 04/29/25 12:00 04/29/25 13:00
Nitrofurantoin Monohydrate 100 Mg Capsule PO 100 mg
BID RICKI Administration
Potassium Chloride 40 meq 04/28/25 09:11 04/29/25 08:33
Potassium Chloride 20 Meq Extended Release Tablet PO 05/25/25 10:59 40 meq
DAILY RICKI Administration
Sodium Chloride 0 flush 04/26/25 19:00
Sodium Chloride 0.9% (Flush) Syringe IV 05/24/25 18:59
PER PROTOCOL RICKI
Home Medications
�Medication �Instructions �Recorded
albuterol sulfate 90 mcg/actuation 2 puff inhalation R Q6HPRN PRN sob 04/26/25
aerosol inhaler
--- NOTE | 2025-04-29 19:19 | PTCARENOTE ---
1600: Pt looks very SOB, lethargic. pt barely opening her eyes or responding which she was doing more of earlier today. c/o being dizzy when she does answer. Pt is on 4LO2 NC 99%. Non rebreather placed for comfort. BP is 95/60 she is complaining of
feeling dizzy. No CP. Pt had the run of VT, which I spoke to dr. weiss about. Amio and Coreg ordered. Unable to give pt pills due to being very lethargic. She looks very uncomfortably. Notified dr. hollins, dr. weiss. Orders received and
completed. Milrinone started.
pt currently sr on the monitor, vss. pt offers no complaints at this time. Pt is now looking more alert and comfortably in bed. Family updated at bedside. pt made NPO. pt and family educated on plan of care and both verbalized understanding. call
hester within reach.
[2025-04-29] MEDS: PACERONE 200 MG PO (21:53)
[2025-04-29 21:59] LABS: Glucose - Point of Care 116 mg/dl (70-99)
--- NOTE | 2025-04-29 22:26 | PTCARENOTE ---
Rec'd pt at change of shift. Pt oriented to self and denies pain, however nonverbal in response to asking time and place. Pt lethargic and with gargled speech. Sinus tach on TELE monitor and VSS on 2L of oxygen. PT took ordered amio and abx with
sips of water and apple sauce without difficulty or coughing. Pt given CHG bath and norwood catheter care. Pt assisted nursing staff in turning in bed and given additional support to do so. Pt denies any further needs and demonstrated ability to
use call hester when asked to do so. Father at bedside and explained patients recent developments and past medical history.
YAJAIRA Yost notified concerning ordered coreg. Order discontinued and not given as ordered.
Pt and father deny having any further questions or concerns at this time. Pt kept NPO after midnight for possible procedure in AM.
See MAR and flowchart for full pt care and assessment.
--- NOTE | 2025-04-29 22:53 | CON.ONC ---
Consultation
-
Date Consultation Requested: 04/29/25
Date Consultation Performed: 04/29/25
Requesting Provider: Drew
Performing Provider: Ceci
Reason for Consultation: thrombophilia
Impression
Impression
Pattern of [employer] infarction likely related to underlying cardiomyopathy possible thrombophilia
Plan
Plan
For cardiac catheterization which should be telling regarding the possibility of thrombus not noted on echo; await results of thrombophilia workup ;will follow-up during hospitalization
Patient History
History of Present Illness
Fortunate 29-year-old white female admitted to the hospital with progressive bilateral lower extremity edema and shortness of breath brought to the hospital by her father as she had been living with grandparents. Historically she has not been
working at her former job and had spent the last 7 to 10 days in bed. Evaluated in the emergency room she was unable to give history as father notes she has diagnosis of autism spectrum disorder. Her pulse oximetry was 93 percent on supplemental
oxygen. LAb studies in the ER noted elevated troponin with mild anemia of 9 g/dL microcytic with platelets of 127 and leukocytosis related to neutrophilia.
Chest x-ray noted significant cardiomegaly raising concern for cardiomyopathy with small bilateral pleural effusions and parenchymal opacities of both lower lungs likely related to atelectasis). Echocardiogram admission noted severely dilated left
ventricle with severely reduced systolic function of 24% global hypokinesis with normal right-sided ventricle severe mitral valve regurgitation with mild tricuspid regurgitation. Despite vigorous diuresis she was somnolent according to her father
prompting CT of the head noting encephalomalacia of the right temporal lobe compatible with an old infarct and chronic microvascular ischemic disease with old infarct of the right frontal deep matter. We are consulted to comment on the possibility
of a thrombophilic state with extensive laboratory studies ordered to same
Past-Medical/Surgical History
Asthma; ASD
Patient Medication
�Medication �Instructions �Recorded �Confirmed �Last Taken �Type
albuterol sulfate 90 mcg/actuation 2 puff inhalation R Q6HPRN PRN sob 04/26/25 04/26/25 Unknown History
aerosol inhaler
Active Medications
Generic Name Dose Route Start Last Admin
Trade Name Freq PRN Reason Stop Dose Admin
Acetaminophen 650 mg 04/26/25 17:58
Acetaminophen 325 Mg Tablet PO 05/24/25 17:57
Q4HPRN PRN
mild pain/PRO/temp> 100.4F
Amiodarone HCl 200 mg 04/29/25 22:00 04/29/25 21:53
Amiodarone 200 Mg Tablet PO 05/27/25 21:59 200 mg
TID RICKI Administration
Aspirin 81 mg 04/27/25 11:00 04/29/25 08:37
Aspirin 81 Mg Chewable Tablet PO 05/25/25 10:59 81 mg
DAILY RICKI Administration
Carvedilol 1.5625 mg 04/29/25 20:00
Carvedilol 3.125 Mg Tablet PO 05/27/25 19:59
On Hold: 04/29/25 20:00 BID RICKI
Resume: 05/02/25 08:00
Ferrous Sulfate 325 mg 04/27/25 13:00 04/29/25 08:39
Ferrous Sulfate 325 Mg Tablet PO 05/25/25 12:59 325 mg
On Hold: 04/29/25 11:26 DAILY RICKI Administration
Furosemide 40 mg 04/27/25 08:00 04/29/25 16:32
Furosemide 40 Mg (10 Mg/Ml) 4 Ml Vial IV 05/25/25 07:59 40 mg
BID AT 0800,1600 RICKI Administration
Heparin Sodium 5,000 units 04/26/25 20:00 04/29/25 20:36
Heparin 5,000 Units/Ml 1 Ml Vial SC 05/24/25 19:59 5,000 units
Q12 RICKI Administration
Ferric Sodium Gluconate 110 mls @ 110 mls/hr 04/27/25 15:45 04/29/25 17:49
Complex 125 mg/ Sodium IV 05/01/25 14:59 110 mls
Chloride DAILY@1400 RICKI Administration
Milrinone Lactate/Dextrose 20 mg in 100 mls @ 0 mls/hr 04/29/25 17:00 04/29/25 17:45
Primacor 20 Mg IV 100 mls
PER PROTOCOL RICKI Administration
Protocol
Per Protocol
Insulin Aspart 0 units 04/29/25 16:30 04/29/25 20:30
Insulin Aspart Low Resistance 300 Units/3 Ml Pen.Injctr SC 05/27/25 16:29 Not Given
AC RICKI
Protocol
Losartan Potassium 25 mg 04/26/25 18:00 04/29/25 08:39
Losartan 25 Mg Tablet PO 05/24/25 17:59 25 mg
On Hold: 04/29/25 18:26 DAILY RICKI Administration
Resume: 05/01/25 06:00
Nitrofurantoin Macrocrystals 100 mg 04/29/25 12:00 04/29/25 21:53
Nitrofurantoin Monohydrate 100 Mg Capsule PO 100 mg
BID RICKI Administration
Potassium Chloride 40 meq 04/28/25 09:11 04/29/25 08:33
Potassium Chloride 20 Meq Extended Release Tablet PO 05/25/25 10:59 40 meq
DAILY RICKI Administration
Sodium Chloride 0 flush 04/26/25 19:00
Sodium Chloride 0.9% (Flush) Syringe IV 05/24/25 18:59
PER PROTOCOL RICKI
Review of Systems
-
Unable to obtain full review of systems at this time due to: Patient Non Verbal
History Source: Family
All Other Systems: Reviewed and Negative
Physical Exam
-
General: Comfortable and Obese
HEENT: Moist Mucous Membranes
Cardiology: Irregular Rate/Rhythm
Pulmonary: Clear
GI: Distended
Musculoskeletal: No Clubbing, No Cyanosis and No Edema
Labs
Lab Results
WBC 10.8 10^3/uL (4.8-10.8) 04/29/25 06:12
RBC 3.89 10^6/uL (4.20-5.40) L 04/29/25 06:12
Hgb 9.5 g/dL (12.0-16.0) L 04/29/25 06:12
Hct 31.2 % (37.0-47.0) L 04/29/25 06:12
MCV 80.2 fL (81.0-99.0) L 04/29/25 06:12
MCH 24.4 pg (27.0-31.0) L 04/29/25 06:12
MCHC 30.4 g/dL (33.0-37.0) L 04/29/25 06:12
RDW 16.0 % (11.5-14.5) H 04/29/25 06:12
Plt Count 104 10^3/uL (130-400) L 04/29/25 06:12
MPV 10.9 fL (7.4-10.4) H 04/29/25 06:12
Abs Immat Gran (auto) 0.3 10^3/uL (0-0.05) H 04/29/25 06:12
Absolute Neuts (auto) 8.4 10^3/uL (1.4-6.5) H 04/29/25 06:12
Absolute Lymphs (auto) 1.1 10^3/uL (1.2-3.4) L 04/29/25 06:12
Absolute Monos (auto) 1.0 10^3/uL (0.1-0.6) H 04/29/25 06:12
Absolute Eos (auto) 0.1 10^3/uL (0-0.7) 04/29/25 06:12
Absolute Basos (auto) 0.0 10^3/uL (0-0.2) 04/29/25 06:12
Immature Gran % 3.0 % (0-0.5) H 04/29/25 06:12
Neutrophils % 77.3 % (42.2-75.2) H 04/29/25 06:12
Lymphocytes % 9.7 % (20.5-51.1) L 04/29/25 06:12
Monocytes % 9.3 % (1.7-9.3) 04/29/25 06:12
Eosinophils % 0.5 % (0-6) 04/29/25 06:12
Basophils % 0.2 % (0-2) 04/29/25 06:12
Creatinine 1.4 mg/dL (0.6-1.0) H 04/29/25 06:12
Vital Signs
Vital Signs
Temp Pulse Resp BP Pulse Ox
98.9 F 100 16 98/55 97
04/29/25 21:50 04/29/25 22:00 04/29/25 21:50 04/29/25 21:53 04/29/25 22:00
[2025-04-30] VITALS (8 sets, daily range): BP systolic 108–120; BP diastolic 53–82; BMI 45.5
[2025-04-30 00:32] LABS: Troponin I 0.063 ng/ml
[2025-04-30 04:42] LABS: Hematocrit 17.7 % (37.0-47.0); Hemoglobin 5.4 g/dL (12.0-16.0); Mean Corp Hgb Conc. 30.5 g/dL (33.0-37.0); Mean Corpuscular Volume 81.2 fL (81.0-99.0); Nucleated Red Blood Cells % 0 %; Platelet Count 152 10^3/uL (130-400); Red Cell Dist. Width 16.2 % (11.5-14.5)
[2025-04-30 04:48] LABS: ALT (SGPT) 70 U/L (0-35); AST (SGOT) 33 U/L (14-36); Albumin 3.1 g/dl (3.5-5.0); Alkaline Phosphatase 105 U/L (38-126); Blood Urea Nitrogen 43 mg/dl (7-17); Calcium 8.0 mg/dl (8.4-10.2); Carbon Dioxide 25 mmol/L (22-30); Chloride 104 mmol/L (98-107); Estimated Creatinine Clearance 70 ml/min; Glucose 105 mg/dl (70-99); Magnesium 2.2 mg/dl (1.6-2.3); Potassium 4.1 mmol/L (3.5-5.1); Sodium 138 mmol/L (135-145); Total Protein 6.0 g/dl (6.3-8.2); eGFR 45.05
[2025-04-30 04:53] LABS: ANA, IgG Reflex to HEp-2 None Detected (None Detected)
[2025-04-30 05:00] LABS: Troponin I 0.061 ng/ml
[2025-04-30 05:11] LABS: Hematocrit 29.0 % (37.0-47.0); Hemoglobin 8.9 g/dL (12.0-16.0)
[2025-04-30] MEDS: PRIMACOR 20 MG 100 IV (05:49)
--- NOTE | 2025-04-30 05:54 | PTCARENOTE ---
Rec'd critical lab result. Hemoglobin reported 5.4. BP taken 108/53, 98% on 2L, and HR in the 90-100's. No change in patient assessment. H&H collected again and YAJAIRA Yost notified. New result 8.9. No new orders as this time.
--- NOTE | 2025-04-30 07:24 | W.PN.HOSP.TC ---
Today's Communication/Plan
-
- See plan for additional details
- Planning for cardiac cath today
- Brain MRI today
- Cardiac MRI once pt able to hold breath/lie flat
- Transvaginal/transpelvic US today
- Continue lasix, milrinone, arb, carvedilol, amiodarone
- Heme/onc, neuro, cards following, appreciate recs
Assessment / Plan
Assessment / Plan
Elodia Mcadams is a 29yo F w no significant pmh who p/w subacute dyspnea & GLORIA, found to have cardiomegaly, pulmonary edema, LVEF 24%, & severe MR all c/f acute HFrEF in s/o cardiomyopathy of unknown etiology.
#Acute HFrEF (24%)
#Severe MR
#Dilated cardiomyopathy
#Tachypnea, improved
Pt presented w ~1-2 weeks of worsening dyspnea and GLORIA. CXR (04/26): cardiomegaly & small bilat pleural effusions. Echo (04/26): LVEF 24%, global hypokinesis, severely dilated L ventricle, severe MR, mild TR, pulm artery pressure estimated 44mmHg. On
presentation - tachycardic, tachypneic without hypoxia or CP (98% RA but RR in 50s > put on 3L NC). BUN elevated 44. ABG w pH of 7.39, pCO2 of 34.
Precipitating dilated cardiomyopathy of unknown etiology. Ddx dilated cardiomyopathy: CAD (less likely in young pt, lipid panel & Ha1c wnl; pending cath) vs. viral (no hx of ppt sx, possible subclinical viral infection) vs. tick-borne bacterial (no
hx exposure, micro pending) vs. genetic syndromes (mom hx of a fib, uncle w some uknown electrical disorder of heart, no known cardiomyopathies in fam hx) vs. drug/alcohol toxicity (denies use) vs. sarcoid/autoimmune (mom with unspecified suspected
autoimmune dz; pending workup). Hx on presentation - 'No fever. No tick bites. No rashes. No cough. No recent travel.' Bedroom at home has mice infestation. She does not smoke or drink alcohol or use drugs. Rash on arms/legs reported as there
'awhile', not petechial/purpuric, blanchable, not targetoid, not in typical autoimmune distribution. Blood parasites smear negative, flu a/b negative, covid negative. Blood cx no growth. Hepatitis serologies negative. Ehrlichiosis & anaplasmosis
negative. CRP elevated 142.8, ESR elevated 67. UA without proteinuria. JOAQUÍN negative. C3 wnl (93), C4 low (<8). On 04/29, pt with worsening respiratory effort, tachypneic, put on non-rebreather & milrinone started; remained stable overnight.
This am: tachycardic 100bpm; RR 20. Satting 99% on 2L NC. Fluid balance -420 ml. Afebrile, normotensive. Appears more comfortable today than previous days from breathing perspective.
- Continue IV lasix 40mg bid
- Losartan 25mg PO daily
- If Cr worsens, consider hydralazine alternative
- Low dose carvedilol 1.5625 mg daily
- Continue low dose milrinone 0.125mcg/kg/min (04/29-)
- Plan to add GDMT stepwise as BP & renal fxn tolerate (currently ARB, BB; holding on starting SGLT2i, MRA for now)
- Cardiac cath planned for today
- Cardiac MRI once pt able to hold breath/lie flat
- Consider endomyocardial bx, consult cards
- Lyme, Singh Mt spotted fever, hantavirus pending
- ANCA, RF, ALEKSANDER pending
- Repeat echo once volume status resolved, eval for need for MV replacement
- Okay for O2 support at night PRN
- Cards following, appreciate recs
- Long-term, consider outpatient genetics workup if unable to determine other etiology of DCM
- Hold on viral panel given [facility] lab restrictions (parvovirus B19, HHV6, coxsackievirus, adenovirus, echovirus, CMV, HIV)
#Nonsustained polymorphic VT
#Long QT
#Trop elevation, resolved
Trop likely elevated in 2/2 nonischemic myocardial injury s/o acute HF. Peaked at 0.207, no longer trending. EKG (04/26): prolonged QT 500 & sinus tachy. C/f prior episode of torsades. Low suspicion for ACS given EKG & lack of CP. Given episode of
worsened respiratory status 04/29, repeat EKG & troponin trend. EKG (04/29): no changes from 04/26, QT prolonged. Troponin: 0.074
Today: troponin downtrending, 0.061; Mg 2.2, K 4.1
- Keep Mg>2, K>4, replete as needed
- Continue daily KCl 40meq
- Amiodarone 200mg tid (04/29-)
- D/c troponin trend
- Telemetry
#Encephalopathy in s/o acute illness
#CT w chronic infarcts & atrophy
CT head obtained overnight 04/28 in s/o AMS. CT demonstrated: 'Chronic transcortical infarct in the right temporal lobe with encephalomalacia. Smaller chronic infarct in the white matter of the right frontal lobe. No intra- or extra-axial mass,
hemorrhage, or fluid collection. Mild subcortical, deep, and periventricular white matter low-attenuation, compatible with changes of chronic small vessel ischemic disease.' Possibly 2/2 hypercoagulable state in s/o autoimmune dz potentially
driving cardiomyopathy. See autoimmune w/u pending above. Will add hypercoagulable labs. Also consider ischemic infarcts in s/o vasoconstriction syndrome. Family reports that pt mouth appeared downturned last night & that she favors her R arm over
L. On exam, strength/sensation equal & symmetric bilateral face & UEs when attended to. L UE weaker when asked to squeeze both hands simultaneously, c/w lack of attentiveness. Left-sided spatial neglect is c/w R temporal stroke. R frontal deep white
matter stroke may be contributing to cognitive status decline & incontinence.
- Antiphospholipid abs (anticardiolipin, beta2-glycoprotein I), protein c/s, antithrombin-heparin cofactor pending
- Factor V leiden, prothrombin pending
- Per neuro, plan for MRI brain today
- ASA 81mg
- Add on clopidogrel once hematology evaluates her baseline anemia & clears for DAPT
- Hematology following, appreciate recs
- Per neuro, consider carotid US & genetic w/u in future
#Anemia, iron deficiency
Likely combination of heavy menstrual period over last week and inflammatory state. Microcytic anemia, Fe deficiency. TIBC 295 w 11% saturation. Ferritin 60.7 S/p PO iron 04/27. B12, folate wnl.
Hgb measured at 5.4 overnight 04/29 from midline - retested at 8.9 (around her baseline).
- Trend Hgb
- Continue IV iron 125mg/bag for 5 bags
- Holding PO iron
- Transvaginal/transpelvic US to eval for fibroids/etiology of heavy menstrual bleed
- Transfuse if hgb<7
- Hematology following, appreciate recs
#SIRS
Pt meeting SIRS criteria on/off due to tachycardia & tachypnea. 04/30, WBC uptrended (14.2>11.8>10.9>13.9). Low suspicion for infectious etiology given afebrile, no localizing sx or exposure, WBC had been trending down in absence of abx. Elevated
HR/RR explained by acute HF. Lactate not elevated, 1.7. Increasing leukocytosis likely 2/2 inflammatory state/stress w respiratory distress episode yesterday evening. Will continue to monitor pending micro labs.
-Monitor pending micro results
-Continue mgmt of HF as above
-Monitor vitals closely
#Rash in bilateral extremities
#L 2nd toe duskiness
Erythematous, scattered (somewhat reticular) rash on bilateral forearms, feet, calves. Erythema less notable today, faded from admission. Per father, when he picked her up from grandparents house recently (had been living there for months), rash was
'all over' her arms & legs, 'all up and down.' This was new, never seen before. Not in distribution c/f tick-borne illness. Rash is not pruritic. Given semi-reticular distribution & c/f antiphospholipid syndrome, c/f autoimmune etiology remains on
differential. However, blanchable rash makes this unlikely. Tip of L 2nd toe dark purple. Per father, improving over past few days. Likely 2/2 ischemia in s/o ongoing cardiomyopathy, w c/f hypercoagulable or autoimmune state (e.g. chillblain's). Not
likely infectious. No L calf swelling or tenderness.
- Continue to monitor for improvement of erythematous rash, worsening pain in toe or darkening of color
- Follow workup as above
- On heparin for DVT ppx
- Hematology following, appreciate recs
#Positive urine cx
Pt urine cx positive for gram negative bacilli, e coli, garcia-sensitive. Urine with +leuk esterase and WBC 16-30. Given pt mental status, unable to ascertain if sx are present - asymptomatic bacteriuria vs. simple UTI. Given afebrile & lack of
leukocytosis (WBC 10.8). Family reports that pt had incontinence in lead-up to admission. Nursing reports urine looks cloudy. Will trt empirically alfa w indwelling norwood, although potentially asx bacteriuria.
- Nitrofurantoin 100mg bid for 5-days (04/29-)
- Monitor for complaints of dysuria, suprapubic pain
#Elevated Cr, suspected cardiorenal
Unknown baseline Cr but pt without known renal condition at baseline. Likely 2/2 cardiorenal syndrome in s/o acute HF.
Cr: 1.6>1.5>1.4>1.6.
- Continue to monitor w diuresis
#Chronic
-Suspected mild autism/Asperger's, father c/f capacity - psych consult 04/27, father will make decisions re: patient's care
-Asthma - albuterol
#Global
-DVT ppx: heparin
-Diet: cholesterol lowering, regular w thin liquids per speech eval
-Code: full
-Dispo: plan for pt to go to live with father and sisters on discharge; pending resolution of acute HF
Anticipated Discharge: > 48 hours
Subjective/Interval History
-
Date of Service: April 30, 2025
Patient's mom at bedside today. Patient appears much more comfortable breathing on 2 L nasal cannula compared to yesterday evening, as well as prior to respiratory event yesterday during the day. Still some visible tachypnea but per patient,
feeling okay. Mom states that she also thinks she looks much better than when she last saw her.
Mom also clarified that she does not have a definitive diagnosis of lupus; she is just thought to have some sort of unspecified autoimmune disease. Mom also clarified that her cardiac history is A-fib and Prinzmetal's angina. Patient's maternal
uncle has some sort of electrical disease in the heart, unknown what it is. Mom also states that patient's maternal grandparents are carriers of cystic fibrosis gene. Patient's mother has never been tested.
Objective Data
-
Labs:
Laboratory Results
04/30/25 04/30/25
03:46 04:55
WBC 13.9 H
Hgb 5.4 L* D 8.9 L D
Hct 17.7 L* 29.0 L
Plt Count 152 D
Sodium 138
Potassium 4.1
Chloride 104
Carbon Dioxide 25
BUN 43 H
Creatinine 1.6 H
Glucose 105 H
Calcium 8.0 L
Total Bilirubin 2.0 H D
AST 33
ALT 70 H
Alkaline Phosphatase 105
Vital Signs:
Vital Signs
Temp Pulse Resp BP Pulse Ox
98.2 F 100 20 108/53 99
04/30/25 03:40 04/30/25 05:00 04/30/25 03:40 04/30/25 04:55 04/30/25 05:00
I&O
04/29/25 04/30/25 05/01/25
06:59 06:59 06:59
Intake Total 960 / 960 480 / 480
Output Total 1650 / 1650 900 / 900
Balance -690 / -690 -420 / -420
Review of Systems
-
History Source: Patient and Family
Constitutional: Reports No Symptoms
Respiratory: Reports Trouble Breathing (some)
Cardiac: Reports Chest Pain (denied)
Musculoskeletal: Reports Edema (improving in bilat LE)
Skin: Reports Rash (bilat UE & LE, improving)
Physical Exam
-
General: Well Nourished, Comfortable (appears more comfortable than yesterday, still visible tachypnea but less effortful respirations) and Obese (severe obesity)
HEENT: Normocephalic, Atraumatic and Anicteric
Respiratory: Crackles (mild crackles at bases ), Non Labored Respirations (some labored respiration but improved from prior days) and Other (O2 NC )
Cardiac: Regular Rhythm and Murmur
GI: Soft and Nontender
Genito-urinary: Norwood (yellow urine in bag)
Musculoskeletal: Other (bilat GLORIA improved from yesterday, trace only ; L third toe with purple tip - improved from yesterday )
Skin: Warm, Dry and Rash (erythematous (dark/burnt out appearing), macular rash in semi reticular pattern on bilateral forearms, calves, feet dorsum; erythema faded from yesterday)
Neuro: Awake and Slurred Speech
Psych: Calm
Data Reviewed
-
Total Time Spent with Patient (in minutes): 15
Critical Care Time (in minutes): 60
Labs: Labs Reviewed by me, Discussed with Patient and Discussed with Family
[2025-04-30 07:42] LABS: Glucose - Point of Care 102 mg/dl (70-99)
[2025-04-30 08:14] LABS: HDL Cholesterol 16 mg/dl; LDL Cholesterol, Calculated 51 mg/dl; Very Low Density Lipoprotein 19 mg/dl (0-30)
[2025-04-30 08:47] LABS: TSH 4.18 uIU/ml (0.47-4.68)
--- NOTE | 2025-04-30 08:50 | W.PN.NEURO.1 ---
Addendum entered and electronically signed by Willy Méndez MD 04/30/25 11:06:
Studies reviewed.
I have personally examined the patient. I reviewed and agree with the [employer]MP[employer]'s Note.
My addenda:
Awake, alert, interactive. No acute distress.
Speech mildly hoarse.
Follows 2-step requests w/ difficulty. No tremor.
Extra-ocular movements grossly intact.
Facial movements full and symmetric. Hearing intact to normal conversational volume.
Normal UE movements bilaterally.
Neck: full ROM.
Chest: no dyspnea
Heart: no JVD
Ext: (-) Clubbing, (-) Cyanosis, (-) Edema
IMPRESSIONS/RECOMMENDATIONS:
Abrupt onset of left-sided weakness of unclear etiology, not demonstrable on examination today
Check MRI of brain, would not withhold this evaluation based on current neurological status
May add clopidogrel if there is demonstration of an acute ischemic stroke by MRI
Provide lorazepam prior to MRI brain
Continue aspirin
No clear indication patient would benefit from the use of a statin medication due to LDL less than 70
No clear evidence patient would benefit from rehabilitation evaluations and treatment
Provide medical educational materials
D/W patient / family / nursing
All questions answered.
Will continue to follow patient.
Original Note:
Documented by User: Jennifer Esteban NP 04/30/25 10:29
Today's Communication / Plan
-
-obtain brain MRI
-obtain CTA head and neck
-goal LDL <70, current LDL 51 no need to start statin therapy since LDL at goal
-continue aspirin 71 mg and clopidogrel 75 mg daily
Neuro Assessment/Plan
Assessment
29-year-old female past medical history of mild autism/Asperger's, asthma, presenting to [facility] on 04/26/2025 with shortness of breath and fatigue worsening over the past 2 weeks neurology consulted for left sided weakness.
Head CT: Moderate age-related parenchymal atrophy. Chronic transcortical infarct in the right temporal lobe with encephalomalacia. Smaller chronic infarct in the white matter of the right frontal lobe. No intra- or extra-axial mass, hemorrhage, or
fluid collection. Mild subcortical, deep, and periventricular white matter low-attenuation, compatible with changes of chronic small vessel ischemic disease. Hyperostosis frontalis interna. The imaged paranasal sinuses and mastoid air cells are
clear.
Plan
Impression:
I. abrupt onset of left sided weakness most likely related to recrudesce of chronic right temporal lobe and right frontal lobe infarcts.
II. encephalopathy due to cardiovascular disease?
-obtain brain MRI
-obtain CTA head and neck
-goal LDL <70, current LDL 51 no need to start statin therapy since LDL at goal
-continue aspirin 71 mg and clopidogrel 75 mg daily
Subjective/Objective
Subjective Data
Date of Service: April 30, 2025
No acute events overnight. Patient slow to respond. Mother at bedside. Denies chest pain, SOB. Denies headache or dizziness. Patient not able to tell us if her left side is weak or if she is having sensory changes.
Objective Data
Vital Signs
Temp Pulse Resp BP Pulse Ox
97.8 F 104 26 113/68 95
04/30/25 07:37 04/30/25 07:37 04/30/25 07:37 04/30/25 07:37 04/30/25 07:37
Lab Results
04/30/25 04:55
04/30/25 03:46
PT 18.3 Sec (11.4-14.6) H 04/26/25 14:56
INR 1.46 04/26/25 14:56
APTT 36.4 Sec (23.4-35.0) H 04/26/25 14:56
Sodium 138 mmol/L (135-145) 04/30/25 03:46
Potassium 4.1 mmol/L (3.5-5.1) 04/30/25 03:46
BUN 43 mg/dl (7-17) H 04/30/25 03:46
Glucose 105 mg/dl (70-99) H 04/30/25 03:46
Calcium 8.0 mg/dl (8.4-10.2) L 04/30/25 03:46
Phosphorus 3.3 mg/dl (2.5-4.5) 04/28/25 02:43
Vim-A-Lqcrmsavrrt Pept > 77102 pg/ml 04/26/25 14:56
Nei-H-Ejvrxmxemcy Pept Cancelled 04/26/25 14:56
LDL Cholesterol, Calc 51 mg/dl 04/30/25 03:46
Patient Allergies
No Known Allergies Allergy (Verified 04/26/25 19:27)
Physical Exam
-
General: Comfortable and Wearing Oxygen
HEENT: Normocephalic, Atraumatic and Anicteric
Neck: Full Range of Motion
Respiratory: No Dyspnea
Cardiac: No JVD
GI: Non-distended
Skin: Unremarkable
Extremities: No Clubbing, No Cyanosis and No Edema
Extended Neurological Exam
Mood & Affect: Mood Unremarkable
Attention Span & Concentration: Awake, Interactive, Lethargic and Severe Difficulty with 2 Step Request
Memory: Vague and Incomplete Historian
Tremor: Hand Tremor Absent and Head Tremor Absent
Speech: Moderately Reduced Output and Hoarse
Cranial Nerve II: Left Eye: Visual Pereyra Grossly Intact
Cranial Nerve II: Right Eye: Visual Pereyra Grossly Intact
Cranial Nerve VII: Facial Symmetry: Normal Facial Symmetry
Cranial Nerve VIII: Hearing: Unremarkable Hearing to Normal Conversational Volume
Muscle Strength, Overall: Spontaneously Moves
Pronator Drift: Drift in Left Upper Extremity and No Drift in Lower Extremities
Touch Sensation: Unable to Assess
Coordination: Iiovmg-vegy-atoict Testing Unremarkable and Reaches for Objects without Difficulty
Data Reviewed
-
CT-A: Ordered
CT Head: Report Reviewed and Image Reviewed
MRI Head: Ordered
EEG: Ordered
Labs: Report Reviewed
Lipid Profile: Report Reviewed
Reviewed with: Physician, Nurse, Patient and Family
Old Records: Summarized

Documented by User: Willy Méndez MD 04/30/25 10:40
Past History
Past History
ED Past Medical History: Other (Autism spectrum disorder)
ED Past Surgical History: None
Social History
Living: with family
Employment: Employed
Family History
Family History: Other (Reviewed and noncontributory)
Medications
-
Medications:
Generic Name Dose Route Start Last Admin
Trade Name Freq PRN Reason Stop Dose Admin
Acetaminophen 650 mg 04/26/25 17:58
Acetaminophen 325 Mg Tablet PO 05/24/25 17:57
Q4HPRN PRN
mild pain/PRO/temp> 100.4F
Amiodarone HCl 200 mg 04/29/25 22:00 04/30/25 10:35
Amiodarone 200 Mg Tablet PO 05/27/25 21:59 200 mg
TID RICKI Administration
Aspirin 81 mg 04/27/25 11:00 04/30/25 10:35
Aspirin 81 Mg Chewable Tablet PO 05/25/25 10:59 81 mg
DAILY RICKI Administration
Carvedilol 1.5625 mg 04/29/25 20:00
Carvedilol 3.125 Mg Tablet PO 05/27/25 19:59
On Hold: 04/29/25 20:00 BID RICKI
Resume: 05/02/25 08:00
Clopidogrel Bisulfate 75 mg 04/30/25 08:00 04/30/25 09:59
Clopidogrel 75 Mg Tablet PO 05/28/25 07:59 Not Given
On Hold: 04/30/25 09:16 DAILY RICKI
Ferrous Sulfate 325 mg 04/27/25 13:00 04/29/25 08:39
Ferrous Sulfate 325 Mg Tablet PO 05/25/25 12:59 325 mg
On Hold: 04/29/25 11:26 DAILY RICKI Administration
Furosemide 40 mg 04/27/25 08:00 04/30/25 10:02
Furosemide 40 Mg (10 Mg/Ml) 4 Ml Vial IV 05/25/25 07:59 40 mg
BID AT 0800,1600 RICKI Administration
Heparin Sodium 5,000 units 04/26/25 20:00 04/30/25 10:35
Heparin 5,000 Units/Ml 1 Ml Vial SC 05/24/25 19:59 5,000 units
Q12 RICKI Administration
Ferric Sodium Gluconate 110 mls @ 110 mls/hr 04/27/25 15:45 04/29/25 17:49
Complex 125 mg/ Sodium IV 05/01/25 14:59 110 mls
Chloride DAILY@1400 RICKI Administration
Milrinone Lactate/Dextrose 20 mg in 100 mls @ 0 mls/hr 04/29/25 17:00 04/30/25 05:49
Primacor 20 Mg IV 100 mls
PER PROTOCOL RICKI Administration
Protocol
Per Protocol
Insulin Aspart 0 units 04/29/25 16:30 04/30/25 07:45
Insulin Aspart Low Resistance 300 Units/3 Ml Pen.Injctr SC 05/27/25 16:29 Not Given
AC RICKI
Protocol
Losartan Potassium 25 mg 04/26/25 18:00 04/29/25 08:39
Losartan 25 Mg Tablet PO 05/24/25 17:59 25 mg
On Hold: 04/29/25 18:26 DAILY RICKI Administration
Resume: 05/01/25 06:00
Nitrofurantoin Macrocrystals 100 mg 04/29/25 12:00 04/30/25 10:35
Nitrofurantoin Monohydrate 100 Mg Capsule PO 100 mg
BID RICKI Administration
Potassium Chloride 40 meq 04/28/25 09:11 04/30/25 10:34
Potassium Chloride 20 Meq Extended Release Tablet PO 05/25/25 10:59 40 meq
DAILY RICKI Administration
Sodium Chloride 0 flush 04/26/25 19:00
Sodium Chloride 0.9% (Flush) Syringe IV 05/24/25 18:59
PER PROTOCOL RICKI
[2025-04-30 08:52] LABS: Ferritin 202.0 ng/ml (6.24-137)
[2025-04-30 09:23] LABS: Folate 8.0 ng/ml (2.76-20); Vitamin B12 767 pg/ml (239-931)
--- NOTE | 2025-04-30 10:01 | PTCARENOTE ---
Pt is AOx3, no complaints of pain or discomfort. Breathing labored per pt and father. 2L O2 via NC, 96%. Pt going for MRI and CT scan today. Sinus tach on tele monitor, VSS. Milrinone gtt stopped for MRI, okay to stop per Christelle Casiano. Right midline
redressed by IV team. Pt and father educated and updated on plan of care. Call hester within reach.
[2025-04-30] MEDS: LASIX 40 MG IV ×2 (10:02→17:10)
[2025-04-30] MEDS: KCL 40 MEQ PO (10:34)
[2025-04-30] MEDS: HEPARIN 5000 UNITS SC (10:35)
[2025-04-30] MEDS: MACROBID 100 MG PO ×2 (10:35→20:53)
[2025-04-30] MEDS: PACERONE 200 MG PO ×3 (10:35→21:34)
[2025-04-30] MEDS: LOW STRENGTH ASPIRIN 81 MG PO (10:35)
--- NOTE | 2025-04-30 10:46 | W.PN.CARDCBS ---
Addendum entered and electronically signed by Danielle Espinosa MD 04/30/25 22:20:
I saw and examined the patient.
The Radiation Control Specialist's note was reviewed and I agree with the note.
Comment: Ms Mcadams is a young 29yo with complex medical presentation with acute hypoxic resp faiure found to have new dilated cardiomyopathy with severe LV dysfxn, LVEF 20-25%, no obvious LV thrombus by Definity contrast repeat echo, , Acute HFrEF,
concern for possible low cardiac outpt state on low dose milrinone since yesterday, chronic anemia of unclear etiology, thrombocytopenia, leukocytosis, hyponatremia, CKD, baseline creat 1.4-1.6, worsening neuro status with abnormal head imaging and
? concern for thrombophilia? No AFIB
VSS. Labwork reviewed. Lactate normal. Hgb stable 8-9. Creat 1.4 to 1.6.
On exam patient is somnolent (recent ativan), A+O x 0-1, RR, normal S1 and S2. No m/r/g, +JVD, Bibasilar rales, abd soft, Nt, obese, ND +BS, warm ext. not able to participate in neuro exam for me given how somnolent, family at bedside.
HCT: Chronic transcortical infarct in the right temporal lobe with encephalomalacia. Smaller chronic infarct in the white matter of the right frontal lobe.'
MRI of brain today showed Large number of acute infarcts throughout the bilateral cerebral hemispheres. Scattered smaller acute infarcts in the left basal ganglia, left greater than right thalami, and right cerebellum. The distribution raises
concern for embolic phenomenon.
Recommendations:
1. Cardiomyopathy: Unclear etiology. Would recommend inpatient or outpatient CTCA to rule out obstructive CAD. This would be lower risk in a young patient with no obivous CV risk factors alaf with other concomitant clinical findings. If no CAD on
CTCA, recommend eventual outpatient cardiac MRI if and when she can tolerate it. GDMT as tolerated--SNRi, BB, SGLT2i, MRA as BP allows and stable renal fxn. Recommend stopping milrinone at 8AM on 05/01/25 with garcia to recheck lactate and CMP at noon.
Lactate normal currently. Monitor UOP post stopping milrinone. Recommend other common workup of cardiomyopathies including thyroid fxn, ferritin, HIV etc.
2. Acute decompensated heart failure: Cont IV diuresis until euvolemic, strict ins and outs, daily weights, low sodium diet.
3. Possible embolic strokes: Recommend workup of cardioembolic sources. Check limited follow up echo with bubble study to rule intracardiac shunting. Recommend 30day outpt monitor upon discharge to rule out afib/aflutter. No e/o LV thrombus. LE
Dopplers. Agree with heme workup re: hypercoag state.
4. Discussion with neurology and heme regarding antithrombotic vs full AC with DAPT vs OAC. for now agree with IV heparin drip.
Extensive discussion at multi-disciplinary level and with primary team as well with nursing and family at bedside.
Danielle Espinosa MD, FAC, [facility],
Total time spent: 54mins.
Original Note:
Today's Communication / Plan
-
Cont milrinone at 0.125 mcg/kg/min renewed by me
MRI brain today
R/LHC this week
Eventual cardiac MRI
Impression / Plan
-
PCP: None
Cardiology: None
Impression:
Presented to the ER with acute hypoxic respiratory failure and edema 04/26/2025
Acute hypoxic respiratory failure
Acute HFrEF
Newly diagnosed CM EF 20 to 25% by echo 04/26/2025
Severe MR
Elevated troponin
ROGELIO
Anemia, initial Hgb 9 on 04/26/2025
Leukocytosis
Thrombocytopenia
Hyponatremia
Elevated lactic acid level
Elevated LFTs
NSVT
Echo 04/26/2025: EF 24%, global hypokinesis, severe MR, mild TR, PAP 44 mmHg
Plan:
-Patient came to the ER on 04/26/2025 with new diagnosis of acute HF and CM. Cardiology has been following since admission.
-Weight is down at least 6 lbs, the patient is being weighed using bed scale. Patient denies any marked symptomatic improvement.
-Diuresing with Lasix 40 mg IV BID, patient was not taking a diuretic prior to admission
-Milrinone 0.125 mcg/kg/min started 04/29/2025 PM
-Cre was 1.4 on 04/29/2025 and has increased to 1.6 on 04/30/2025 on my review of the labs
-EF 24% by echo 04/26/2025
-Reviewed with patient and father who is sitting at the bedside on 04/30/2025 that the plan will be for eventual cardiac cath to exclude ICM and patient will then need workup for NICM. There is no FH of CM. Patient denies EtOH use disorder. Patient
will likely need eventual cardiac MRI, this will be made difficult as the patient is claustrophobic and requesting BZD for MRI brain and she will not be able to have any sedation for cardiac MRI as patient is need to be able to interact with cardiac
MRI staff during that study.
-Coreg started and then stopped while on milrinone
-Patient was briefly on losartan 25 mg daily, but this is also on hypotension and ROGELIO
-Patient with 19 beat run of NSVT on 04/29/2025 and she felt fluttering in her chest at that time. Potassium was 3.5 at the time of NSVT and it was supplemented with KCl by my review of labs and MAR
-Patient started on amiodarone 200 mg TID for NSVT on 04/29/2025. QTc 494 ms on last known ECG from 04/29/2025, recheck ECG, ordered by me 04/30/25.
-Severe MR on echo with global hypokinesis
-CT head was ordered for lethargy on 04/29/2025 and there were chronic findings noted of a transcortical infarct in the right temporal lobe with encephalomalacia and smaller chronic infarcts in the white matter at the right frontal lobe along with
mild subcortical, deep and periventricular white matter low-attenuation C/W changes of chronic small vessel disease. Neurology was consulted and MRI of brain is pending
-Hematology following as well for possible thrombophilia and anemia. Labs were drawn early on 04/30/2025 that showed a marked drop in Hgb, but on recheck Hgb was at baseline.
-Patient has authorized her father to make medical decisions for her, this was reviewed between myself, the patient and her father and was witnessed by RN in the room on 04/30/2025
PREADMIT DATA: Patient came to the ER today with SOB and LE edema and is being admitted with acute HF and cardiology has been consulted. Patient lives with her maternal grandmother and her mother side of the family had been reporting that the
patient was more swollen and SOB. The patient's father was alerted that the patient was more swollen and that while some of the mother's family felt that her symptoms were not severe other family members felt that she needed 911 called and so the
father left work early to check on the patient today then brought her to [facility] ER to be evaluated. The patient's father reports that his daughter is usually conversant and that when he saw her today she was barely responsive and did not appear to be
herself, she had significant LE edema that she does not usually have. Reportedly patient has her own room at her grandmother's house and it is infested with mice because she takes food and drink into her room and does not realize that she has to
throw it out. Family reports that patient has normal intelligence level without any history of developmental delay and was able to graduate high school, but is not currently employed. Patient has never been officially diagnosed as being autistic,
but the family reports that she does not do well with physical touch and has trouble making complex decisions. It is unclear how long patient has been SOB, she told the microelectronics technician is been weeks and she told family it has been a couple of days.
Patient denies any chest pain.
Progress Note - Project Estimator
Subjective
Date of Service: April 30, 2025
She thinks she possibly feels better, but is tired
Objective
Labs:
04/30/25 04:55
04/30/25 03:46
Labs
Hgb 8.9 g/dL (12.0-16.0) L D 04/30/25 04:55
Hct 29.0 % (37.0-47.0) L 04/30/25 04:55
Plt Count 152 10^3/uL (130-400) D 04/30/25 03:46
PT 18.3 Sec (11.4-14.6) H 04/26/25 14:56
INR 1.46 04/26/25 14:56
APTT 36.4 Sec (23.4-35.0) H 04/26/25 14:56
Sodium 138 mmol/L (135-145) 04/30/25 03:46
Potassium 4.1 mmol/L (3.5-5.1) 04/30/25 03:46
BUN 43 mg/dl (7-17) H 04/30/25 03:46
Creatinine 1.6 mg/dL (0.6-1.0) H 04/30/25 03:46
Glucose 105 mg/dl (70-99) H 04/30/25 03:46
Troponins
04/29/25 04/29/25 04/29/25
16:45 16:52 23:43
Troponin I Cancelled 0.074 H* 0.063 H*
04/30/25 04/30/25
03:46 10:45
Troponin I 0.061 H* Cancelled
Vital Signs and I&O:
Vital Signs
Temp Pulse Resp BP Pulse Ox
97.8 F 104 26 120/69 95
04/30/25 07:37 04/30/25 10:35 04/30/25 07:37 04/30/25 10:35 04/30/25 07:37
Vital Signs
Temp Pulse Resp BP Pulse Ox
97.8 F 104 26 120/69 95
04/30/25 07:37 04/30/25 10:35 04/30/25 07:37 04/30/25 10:35 04/30/25 07:37
Intake & Output
04/28/25 04/29/25 04/30/25 05/01/25
06:59 06:59 06:59 06:59
Intake Total 240 / 240 960 / 960 480 / 480
Output Total 3200 / 3200 1650 / 1650 900 / 900
Balance -2960 / -2960 -690 / -690 -420 / -420
Physical Exam
Physical Exam
GEN: NAD. AAO to person place and situation, father sitting bedside
LUNGS: 2 L NC. Dyspneic with conversation. Diffuse Rales
CV: Sinus tachycardia on telemetry. Reg, S1/S2, 3/6 syst HSM
EXT: +2 pitting B/L LE edema
NEURO: Gross non-focal
SKIN: No rash
[2025-04-30] MEDS: ATIVAN 1 MG PO (11:13)
--- NOTE | 2025-04-30 12:50 | W.PN.ONC ---
Today's Communication / Plan
-
Ordered Lupus panel and antiphospholipid panel
Impression
Impression
TABLE ATTENDANT Infarction due to Possible Thrombophilia
Iron Deficiency Anemia
Plan
Plan
TABLE ATTENDANT Infarction due to Possible Thrombophilia
-CT of the head from 04/28 showed ' Chronic transcortical infarct in the right temporal lobe with encephalomalacia. Smaller chronic infarct in the white matter of the right frontal lobe.'
-MRI of brain today showed 'Large number of acute infarcts throughout the bilateral cerebral hemispheres. Scattered smaller acute infarcts in the left basal ganglia, left greater than right thalami, and right cerebellum. The distribution raises
concern for embolic phenomenon.'
-Patient with unclear origin for infarcts, but concern for possible thrombophilia given her young age. No known family history of blood clots per father
-Ordered lupus panel and antiphospholipid panel
-Pending Factor II, V Leiden labs from 04/29/2025, rheumatoid factor, Myeloperoxidase AB, Proteinase 3 AB,
-Cardiac Catheterization scheduled for today
-Will monitor
Iron Deficiency Anemia
-Patient with history of heavy menstrual periods possibly lasting for up to 2 weeks at a time, with most recent menstrual period just prior to hospitalization.
-Patient with microcytic anemia with most recent hemoglobin of 8.9, hematocrit of 29.0. Initially these lab results were lower this AM but this was likely due to dilution. Her baseline hemoglobin appears to be around 9.0 during this hospitalization.
No prior lab results available.
-Continue IV iron 125mg/bag for 5 bags total
-Pending results of transvaginal/transpelvic US to evaluate for etiology of heavy menstrual bleeding. If there is no clear etiology revealed on transvaginal/transpelvic US, patient may need to be evaluated for other sources of possible blood loss.
-Continue to monitor CBC.
-Will monitor
Subjective/Objective
Subjective/Objective
Patient was in bed today with her father at beside. She appears sluggish to respond, and speaks slowly and uncertainly when asked questions. Her father answered most of the questions for the HPI. He reports that she had been living with her
grandparents, and the last time he had seen her was 2 months ago. The way she is today is not her baseline according to him, as she is much more lively and animated. Upon discharge, he will be taking care of her at his own house. She states she
feels better today than she did yesterday, though he notes he does not see significant change between the days. She did recently have a heavy menstrual period, and states she might bleed through one pad every hour during her periods. These may also
last for 2 weeks in total of bleed time. She denies any history of dark stools or blood in her stools.
Patient's father does report that he and the patient's mother are , and he is not very familiar with the patient's mother's family's history aside from 'heart issues'. He does not know of any family history of blood clots on his side of the
family. He reports he has been given permission by the patient to speak for her if she is unable to make descisions for herself.
Vital Signs:
Vital Signs
Temp Pulse Resp BP Pulse Ox
97.8 F 103 28 110/63 97
04/30/25 11:22 04/30/25 11:22 04/30/25 11:22 04/30/25 11:22 04/30/25 11:22
Lab Results:
Laboratory Data
WBC 13.9 10^3/uL (4.8-10.8) H 04/30/25 03:46
Hgb 8.9 g/dL (12.0-16.0) L D 04/30/25 04:55
Plt Count 152 10^3/uL (130-400) D 04/30/25 03:46
PT 18.3 Sec (11.4-14.6) H 04/26/25 14:56
INR 1.46 04/26/25 14:56
APTT 36.4 Sec (23.4-35.0) H 04/26/25 14:56
eGFR 45.05 04/30/25 03:46
Orders
Orders
Orders From Last 24 Hours
04/30/25 11:19
Antiphospholipid Antibody [Phospholipid Antibody Panel] Routine
Lupus Anticoagulant Panel Refl [S] Routine
[2025-04-30 13:29] LABS: Rheumatoid Agglutinin Less Than 10 IU (<10 IU)
[2025-04-30 13:35] LABS: Glucose - Point of Care 87 mg/dl (70-99)
[2025-04-30] MEDS: FERRLECIT 110 MG IV (15:10)
[2025-04-30 15:57] LABS: Lyme Antibody Screen, EIA Negative (Negative)
[2025-04-30 16:59] LABS: Glucose - Point of Care 105 mg/dl (70-99)
[2025-04-30 17:55] LABS: Hematocrit 29.4 % (37.0-47.0); Hemoglobin 9.0 g/dL (12.0-16.0); Mean Corp Hgb Conc. 30.6 g/dL (33.0-37.0); Mean Corpuscular Volume 81.2 fL (81.0-99.0); Platelet Count 133 10^3/uL (130-400); Red Cell Dist. Width 16.3 % (11.5-14.5)
[2025-04-30 18:04] LABS: APTT 46.6 Sec (23.4-35.0)
[2025-04-30] MEDS: HEPARIN 25000 UNITS/250 ML IV (18:19)
[2025-04-30 22:17] LABS: RMSF IgG Antibodies <1:64 (<1:64); RMSF IgM Antibodies <1:64 (<1:64)
[2025-04-30 22:33] LABS: Glucose - Point of Care 99 mg/dl (70-99)
[2025-05-01] VITALS (10 sets, daily range): BP systolic 95–130; BP diastolic 56–85; BMI 45.4
[2025-05-01 01:08] LABS: APTT 54.1 Sec (23.4-35.0)
[2025-05-01 05:12] LABS: Hematocrit 30.5 % (37.0-47.0); Hemoglobin 9.3 g/dL (12.0-16.0); Mean Corp Hgb Conc. 30.5 g/dL (33.0-37.0); Mean Corpuscular Volume 80.9 fL (81.0-99.0); Nucleated Red Blood Cells % 0 %; Platelet Count 147 10^3/uL (130-400); Red Cell Dist. Width 16.5 % (11.5-14.5)
[2025-05-01 05:33] LABS: ALT (SGPT) 52 U/L (0-35); AST (SGOT) 26 U/L (14-36); Albumin 3.1 g/dl (3.5-5.0); Alkaline Phosphatase 104 U/L (38-126); Blood Urea Nitrogen 40 mg/dl (7-17); Calcium 8.3 mg/dl (8.4-10.2); Carbon Dioxide 26 mmol/L (22-30); Chloride 104 mmol/L (98-107); Estimated Creatinine Clearance 74 ml/min; Glucose 89 mg/dl (70-99); Magnesium 2.3 mg/dl (1.6-2.3); Potassium 4.0 mmol/L (3.5-5.1); Sodium 138 mmol/L (135-145); Total Protein 6.1 g/dl (6.3-8.2); eGFR 48.68
[2025-05-01] MEDS: PRIMACOR 20 MG 100 IV (06:14)
--- NOTE | 2025-05-01 06:34 | PTCARENOTE ---
Pt NSR on monitor. VSS. Pt is lethargic in the begging of this shift, but able to complete NIH and score 4. Pt was more awake later this shift and NIH improved and score 2. Pt tachypneic and shallow breathing with resp 30 BPM. PLOx 98 on 2L. Pt
denies any pain. Pt reposition every 2 hrs. Call hester with in reach
[2025-05-01 07:02] LABS: Glucose - Point of Care 86 mg/dl (70-99)
--- NOTE | 2025-05-01 07:10 | W.PN.HOSP.TC ---
Addendum entered and electronically signed by Alden Saucedo MD 05/01/25 14:19:
Presented in acute new onset decompensated heart failure found to have a dilated cardiomyopathy with a EF of 25% required milrinone and diuretics. Milrinone was eventually tapered off per cardiology recommendations.
Hospital course complicated by polymorphic V. tach cardiology initiated amiodarone. Hospitalization further complicated by left-sided hemineglect, MRI confirming bihemispheric multifocal ischemic infarcts.
Take into consideration distribution of stroke pattern appearance appears to be more embolic in nature. 2D echocardiogram with bubble study was negative for PFO. Have asked cardiology to perform ROCÍO. Which they were agreeable to. Additionally
discussed with cardiology neurology and hematology/oncology for potential cardiac MRI plus minus endomyocardial biopsy to rule out infiltrative (sarcoid/autoimmune)/inflammatory(myocarditis)disease. Autoimmune serologic workup pending. Would check
ANCA's, RF negative, [place] spotted fever negative, Lyme negative, hypercoagulable workup pending, normal C3, low C4, high ESR high CRP. Will additionally check renal Dopplers to assess if any renal infarction noted. If not we will consider
garcia scan however ideally would do with IV contrast but may not be able to do so due to renal function.
Additionally as this is embolic started on anticoagulation with heparin hypercoagulable workup is pending nevertheless will need repeat testing in 12 weeks to confirm. Therefore at this time continue heparin drip and likely plan to transition to
Coumadin when ready for discharge. Additionally known history of menorrhagia however unable to tell us how long this has been occurring for and how long her menses last for when it does occur. Therefore at this time we will order transvaginal
transpelvic ultrasound.
Renal function has been stable between 1.4 and 1.6 since admission. Unclear if this is baseline or if this is acute kidney injury. Renal bladder ultrasound will also help with this. Should check urine studies with urine creat sodium protein.
Check CK.
She has been accepted to [facility] under Dr. Amanda Orlando and wellness service. As a urgent transfer. However noted to have 19 beds in the ED and pending pending and multiple transfer from outside hospitals. Therefore it may take some time.
Original Note:
Today's Communication/Plan
-
- Transfer to [facility]
- See plan for details
Assessment / Plan
Assessment / Plan
Elodia Mcadams is a 29yo F w no significant pmh who p/w subacute dyspnea & GLORIA, found to have cardiomegaly, pulmonary edema, LVEF 24%, & severe MR all c/f acute HFrEF in s/o cardiomyopathy of unknown etiology.
#Acute HFrEF (24%)
#Severe MR
#Dilated cardiomyopathy
#Tachypnea, improved
Pt presented w ~1-2 weeks of worsening dyspnea and GLORIA. CXR (04/26): cardiomegaly & small bilat pleural effusions. Echo (04/26): LVEF 24%, global hypokinesis, severely dilated L ventricle, severe MR, mild TR, pulm artery pressure estimated 44mmHg. On
presentation - tachycardic, tachypneic without hypoxia or CP (98% RA but RR in 50s > put on 3L NC). BUN elevated 44. ABG w pH of 7.39, pCO2 of 34.
Precipitating dilated cardiomyopathy of unknown etiology. Ddx dilated cardiomyopathy: CAD (less likely in young pt, lipid panel & Ha1c wnl; pending cath) vs. viral (no hx of ppt sx, possible subclinical viral infection) vs. tick-borne bacterial (no
hx exposure, micro pending) vs. genetic syndromes (mom hx of a fib, uncle w some uknown electrical disorder of heart, no known cardiomyopathies in fam hx) vs. drug/alcohol toxicity (denies use) vs. sarcoid/autoimmune (mom with unspecified suspected
autoimmune dz; pending workup). Hx on presentation - 'No fever. No tick bites. No rashes. No cough. No recent travel.' Bedroom at home has mice infestation. She does not smoke or drink alcohol or use drugs. Rash on arms/legs reported as there
'awhile', not petechial/purpuric, blanchable, not targetoid, not in typical autoimmune distribution. Blood parasites smear negative, flu a/b negative, covid negative. Blood cx no growth. Hepatitis serologies negative. Ehrlichiosis & anaplasmosis &
Lyme & Rickettsiae negative. CRP elevated 142.8, ESR elevated 67. UA without proteinuria. JOAQUÍN negative, RF negative. C3 wnl (93), C4 low (<8). ALEKSANDER not elevated (low). On 04/29, pt with worsening respiratory effort, tachypneic, put on non-rebreather &
milrinone started; remained stable overnight. Ddx remains subclinical viral trigger vs. genetic syndrome vs. autoimmune etiology, unspecified.
This am: tachycardic 107bpm; RR 24. Satting 93% on RA. Fluid balance -997ml. Afebrile, normotensive. Appears more comfortable today than previous days from breathing perspective, without NC, mental status improved.
- Bubble study for PDA this am, consider f /u ROCÍO
- Continue IV lasix 40mg bid
- Losartan 25mg PO daily
- If Cr worsens, consider hydralazine alternative
- Low dose carvedilol 1.5625 mg daily
- Stop milrinone 0.125mcg/kg/min (04/29-05/01)
- Plan to add GDMT stepwise as BP & renal fxn tolerate (currently ARB, BB; holding on starting SGLT2i, MRA for now)
- Cardiac MRI once pt able to hold breath/lie flat
- Consider endomyocardial bx
- Okay for O2 support at night PRN
- Cardiac cath planning on hold
- Consider transfer to [facility], per cards
- Long-term, consider outpatient genetics workup if unable to determine other etiology of DCM
- Hold on viral panel given lab restrictions (parvovirus B19, HHV6, coxsackievirus, adenovirus, echovirus, CMV, HIV)
#Acute scattered infarcts, c/f embolic
#Encephalopathy in s/o acute illness
#CT w chronic infarcts & atrophy
CT head obtained overnight 04/28 in s/o AMS. CT demonstrated: 'Chronic transcortical infarct in the right temporal lobe with encephalomalacia. Smaller chronic infarct in the white matter of the right frontal lobe. No intra- or extra-axial mass,
hemorrhage, or fluid collection. Mild subcortical, deep, and periventricular white matter low-attenuation, compatible with changes of chronic small vessel ischemic disease.' Possibly 2/2 hypercoagulable state in s/o autoimmune dz potentially
driving cardiomyopathy. See autoimmune w/u pending above. Will add hypercoagulable labs. Also consider ischemic infarcts in s/o vasoconstriction syndrome. Family reports that pt mouth appeared downturned last night & that she favors her R arm over
L. On exam, strength/sensation equal & symmetric bilateral face & UEs when attended to. L UE weaker when asked to squeeze both hands simultaneously, c/w lack of attentiveness. Left-sided spatial neglect is c/w R temporal stroke. R frontal deep white
matter stroke may be contributing to cognitive status decline & incontinence.
MRI and CTA (04/30) demonstrated: multifocal acute scattered infarcts c/f emboli; no evidence arterial stenosis. Bubble study negative for PDA (05/01).
- Antiphospholipid abs (anticardiolipin, beta2-glycoprotein I), protein c/s, antithrombin-heparin cofactor pending
- Factor V leiden, prothrombin pending
- Continue ASA 81mg
- Continue IV heparin (04/30-)
- Consider ROCÍO
- May add on clopidogrel once cleared by consultants
- Hematology following, appreciate recs
#Anemia, iron deficiency
Likely combination of heavy menstrual period over last week and inflammatory state. Microcytic anemia, Fe deficiency (35). TIBC 295 w 11% saturation. Ferritin 60.7 S/p PO iron 04/27. B12, folate wnl.
Today: Hgb up to 9.3, hct 30.5
- Trend Hgb
- Continue IV iron 125mg/bag for 5 bags
- Holding PO iron
- Transvaginal/transpelvic US pending
- Transfuse if hgb<7
- Hematology following, appreciate recs
#Nonsustained polymorphic VT
#Long QT
#Trop elevation, resolved
Trop likely elevated in 2/2 nonischemic myocardial injury s/o acute HF. Peaked at 0.207, no longer trending. EKG (04/26): prolonged QT 500 & sinus tachy. C/f prior episode of torsades. Low suspicion for ACS given EKG & lack of CP. Given episode of
worsened respiratory status 04/29, repeat EKG & troponin trend. EKG (04/29): no changes from 04/26, QT prolonged. Troponin: 0.074
Today: Mg 2.3 K 4
- Keep Mg>2, K>4, replete as needed
- Continue daily KCl 40meq
- Amiodarone 200mg tid (04/29-)
- Telemetry
#SIRS
Pt meeting SIRS criteria on/off due to tachycardia & tachypnea. 05/01 WBC normalized (14.2>11.8>10.9>13.9>9.5). Low suspicion for infectious etiology given afebrile, no localizing sx or exposure, WBC had been trending down in absence of abx. Elevated
HR/RR explained by acute HF. Lactate not elevated, 1.7. Increase in leukocytosis likely 2/2 inflammatory state/stress w respiratory distress episodes.
-Continue mgmt of HF as above
-Monitor vitals closely
#Rash in bilateral extremities
#L 2nd toe duskiness
Erythematous, scattered (somewhat reticular) rash on bilateral forearms, feet, calves. Erythema less notable today, faded from admission. Per father, when he picked her up from grandparents house recently (had been living there for months), rash was
'all over' her arms & legs, 'all up and down.' This was new, never seen before. Not in distribution c/f tick-borne illness. Rash is not pruritic. Given semi-reticular distribution & c/f antiphospholipid syndrome, c/f autoimmune etiology remains on
differential. However, blanchable rash makes this unlikely. Tip of L 2nd toe dark purple. Per father, improving over past few days. Likely 2/2 ischemia in s/o ongoing cardiomyopathy, w c/f hypercoagulable or autoimmune state (e.g. chillblain's). Not
likely infectious. No L calf swelling or tenderness.
- Continue to monitor for improvement of erythematous rash, worsening pain in toe or darkening of color
- Follow workup & anticoag mgmt as above
- Hematology following, appreciate recs
#Positive urine cx
Pt urine cx positive for gram negative bacilli, e coli, garcia-sensitive. Urine with +leuk esterase and WBC 16-30. Given pt mental status, unable to ascertain if sx are present - asymptomatic bacteriuria vs. simple UTI. Given afebrile & lack of
leukocytosis (WBC 10.8). Family reports that pt had incontinence in lead-up to admission. Nursing reports urine looks cloudy. Will trt empirically alfa w indwelling norwood, although potentially asx bacteriuria.
- Nitrofurantoin 100mg bid for 5-days (04/29-)
- Monitor for complaints of dysuria, suprapubic pain
#Elevated Cr, suspected cardiorenal
Unknown baseline Cr but pt without known renal condition at baseline. Likely 2/2 cardiorenal syndrome in s/o acute HF.
Cr: 1.6>1.5>1.4>1.6>1.5.
- Continue to monitor w diuresis
#Chronic
-Suspected mild autism/Asperger's, father c/f capacity - psych consult 04/27, father will make decisions re: patient's care
-Asthma - albuterol
#Global
-DVT ppx: on IV heparin
-Diet: cholesterol lowering, regular w thin liquids per speech eval
-Code: full
-Dispo: plan for pt to go to live with father and sisters on discharge; pending resolution of acute HF
Anticipated Discharge: > 48 hours
Subjective/Interval History
-
Date of Service: May 01, 2025
Patient with mom, then dad at bedside. Patient more alert/conversant than I have seen her this admission. Patient also appears more comfortable from a respiratory standpoint than previous. Patient with nasal cannula out of nose for trial this
morning, satting in the low 90s. Able to state her name and year and that she was in the hospital. Stated that her mouth felt very dry. Awaiting bedside bubble study.
Objective Data
-
Labs:
Laboratory Results
05/01/25 05/01/25 05/01/25
00:36 04:41 08:00
WBC 9.5
Hgb 9.3 L
Hct 30.5 L
Plt Count 147
APTT 54.1 H Pending
Sodium 138
Potassium 4.0
Chloride 104
Carbon Dioxide 26
BUN 40 H
Creatinine 1.5 H
Glucose 89
Calcium 8.3 L
Total Bilirubin 1.6 H
AST 26
ALT 52 H
Alkaline Phosphatase 104
Vital Signs:
Vital Signs
Temp Pulse Resp BP Pulse Ox
98.4 F 107 24 119/73 98
05/01/25 06:52 05/01/25 06:52 05/01/25 06:52 05/01/25 03:22 05/01/25 06:52
I&O
04/30/25 05/01/25 05/02/25
06:59 06:59 06:59
Intake Total 480 / 480 828 / 828
Output Total 900 / 900 1825 / 1825
Balance -420 / -420 -997 / -997
Review of Systems
-
History Source: Patient and Family
Respiratory: Reports Trouble Breathing (improving)
Cardiac: Reports Orthopnea (improving)
Abdomen/GI: Reports No Symptoms
Musculoskeletal: Reports Other (GLORIA improving)
Skin: Reports Other (L 3rd toe discoloration improving; bilateral extremity rash improving )
Physical Exam
-
General: Well Nourished, Comfortable (appears more comfortable than yesterday, still visible tachypnea but less effortful respirations) and Obese (severe obesity)
HEENT: Normocephalic, Atraumatic and Anicteric
Respiratory: Crackles (mild crackles at bases ), Non Labored Respirations (some labored respiration but improved from prior days) and Other (O2 NC on forehead, taken out of nose )
Cardiac: Regular Rhythm and Murmur
GI: Soft and Nontender
Genito-urinary: Norwood (yellow urine in bag)
Musculoskeletal: Other (GLORIA improved; L 3rd toe discoloration almost normalized )
Skin: Warm, Dry and Rash (erythematous rash mostly improved; some reticular pattern on LUE remaining )
Neuro: Awake, Alert and Oriented (able to state name, year, at hospital )
Psych: Calm
Data Reviewed
-
Total Time Spent with Patient (in minutes): 15
Critical Care Time (in minutes): 45
Labs: Labs Reviewed by me
--- NOTE | 2025-05-01 07:55 | PTCARENOTE ---
agitated saline echo contrast study performed, 2 separate injections per policy and procedure, tolerated well. Used LAC IV site, patent. Valsalva for second injection, images obtained by echosonographer.
[2025-05-01] MEDS: KCL PO ×2 (08:56→10:13)
[2025-05-01] MEDS: MACROBID 100 MG PO ×2 (08:56→20:31)
[2025-05-01] MEDS: LOW STRENGTH ASPIRIN 81 MG PO (08:56)
[2025-05-01] MEDS: LASIX 40 MG IV ×2 (09:00→17:20)
[2025-05-01] MEDS: COZAAR 25 MG PO (09:01)
[2025-05-01] MEDS: PACERONE 200 MG PO ×3 (09:01→21:59)
[2025-05-01 09:36] LABS: APTT 64.2 Sec (23.4-35.0)
--- NOTE | 2025-05-01 09:48 | W.PN.CARDCBS ---
Addendum entered and electronically signed by Calin Teresa MD 05/01/25 10:35:
I saw and examined the patient.
The DOUBLER OPERATOR or PA's note was reviewed and I agree with the note.
Comment: General: Sleepy but arousable
Neck: Supple, no JVD, HJR, carotids +2 B/L, no bruits bilaterally.
Heart: Non displaced PMI, RRR, no murmurs, No S3, S4, no rubs.
Lungs: Clear to auscultation bilaterally, no wheeze, rhonchi, rubs bilaterally,
normal expiratory phase.
Extremities: No clubbing, cyanosis or edema bilaterally.
Neuro: Grossly sleepy but arousable
Concern regarding continued poor mental status. From a cardiovascular standpoint she has remained stable with excellent diuresis. Will stop milrinone. Discussed with patient's father in detail at bedside. [facility] for workup of hematologic issues and CVA. Cardiac catheterization on hold with mental status change. Likelihood of CAD is low and could consider coronary CTA at some point.
Original Note:
Today's Communication / Plan
-
follow mental status
stop milrinone. repeat labs @noon
given complexity of case in young woman, would recommend transfer to tertiary care center for evaluation.
eventual work up of CM, presumed nonischemic, and reassessment of MR
Impression / Plan
-
PCP: None
Cardiology: None
Impression:
Presented to the ER with acute hypoxic respiratory failure and edema 04/26/2025
Acute hypoxic respiratory failure
Acute HFrEF
Newly diagnosed CM EF 20 to 25% by echo 04/26/2025
Severe MR
Elevated troponin
ROGELIO
Anemia, initial Hgb 9 on 04/26/2025
Leukocytosis
Thrombocytopenia
Hyponatremia
Elevated lactic acid level
Elevated LFTs
NSVT
Echo 04/26/2025: EF 24%, global hypokinesis, severe MR, mild TR, PAP 44 mmHg
Plan:
-Patient came to the ER on 04/26/2025 with new diagnosis of acute HF and CM. Cardiology has been following since admission.
-Weight is down 9+lbs from admission if accurate, the patient is being weighed using bed scale. Patient denies any marked symptomatic improvement. Continue IV lasix 40mg BID
-Milrinone 0.125 mcg/kg/min started 04/29/2025 PM, weaned off M. will repeat lactic acid and CMP at noon
-Cr stable at 1.5, has been in 1.4-1.6 range since admission
-EF 24% by echo 04/26/2025
-she has been lethargic since admission but particularly since 04/30. had brain MRI which showed bilateral CVAs. neurology following. presently on IV heparin. bubble study negative 05/01
-heme following for anemia, concern for thrombophilia. hgb of 5.4 on 04/30 felt to be lab error as repeat was at baseline of 8.9
-given complexity of case in young woman, would recommend transfer to tertiary care center for evaluation.
-she will need eventual work up with cardiac cath and likely cardiac MRI for presumed NICM. of note, patient is claustrophobic and requesting BZD for MRI brain and she will not be able to have any sedation for cardiac MRI as patient is need to be
able to interact with cardiac MRI staff during that study.
-continue losartan for afterload reduction. Coreg started and then stopped while on milrinone, could consider eventual restart
-she has had runs of polymorphic and monomorphic VT since admission in setting of hypokalemia. Keep K>4 and mag >2. continue amiodarone 200mg TID. follow daily EKGs to follow QTc.
-Severe MR on echo with global hypokinesis
-*Patient has authorized her father to make medical decisions for her
-d/w nursing
PREADMIT DATA: Patient came to the ER today with SOB and LE edema and is being admitted with acute HF and cardiology has been consulted. Patient lives with her maternal grandmother and her mother side of the family had been reporting that the
patient was more swollen and SOB. The patient's father was alerted that the patient was more swollen and that while some of the mother's family felt that her symptoms were not severe other family members felt that she needed 911 called and so the
father left work early to check on the patient today then brought her to [facility] ER to be evaluated. The patient's father reports that his daughter is usually conversant and that when he saw her today she was barely responsive and did not appear to be
herself, she had significant LE edema that she does not usually have. Reportedly patient has her own room at her grandmother's house and it is infested with mice because she takes food and drink into her room and does not realize that she has to
throw it out. Family reports that patient has normal intelligence level without any history of developmental delay and was able to graduate high school, but is not currently employed. Patient has never been officially diagnosed as being autistic,
but the family reports that she does not do well with physical touch and has trouble making complex decisions. It is unclear how long patient has been SOB, she told the cinetechnician is been weeks and she told family it has been a couple of days.
Patient denies any chest pain.
Progress Note - Base Engineer
Subjective
Date of Service: May 01, 2025
lethargic. no c/o pain
Objective
Labs:
05/01/25 04:41
Labs
Hgb 9.3 g/dL (12.0-16.0) L 05/01/25 04:41
Hct 30.5 % (37.0-47.0) L 05/01/25 04:41
Plt Count 147 10^3/uL (130-400) 05/01/25 04:41
PT 18.3 Sec (11.4-14.6) H 04/26/25 14:56
INR 1.46 04/26/25 14:56
APTT 54.1 Sec (23.4-35.0) H 05/01/25 00:36
Sodium 138 mmol/L (135-145) 05/01/25 04:41
Potassium 4.0 mmol/L (3.5-5.1) 05/01/25 04:41
BUN 40 mg/dl (7-17) H 05/01/25 04:41
Creatinine 1.5 mg/dL (0.6-1.0) H 05/01/25 04:41
Glucose 89 mg/dl (70-99) 05/01/25 04:41
Troponins
04/29/25 04/29/25 04/29/25
16:45 16:52 23:43
Troponin I Cancelled 0.074 H* 0.063 H*
04/30/25 04/30/25
03:46 10:45
Troponin I 0.061 H* Cancelled
Vital Signs and I&O:
Vital Signs
Temp Pulse Resp BP Pulse Ox
98.4 F 102 24 115/74 92
05/01/25 06:52 05/01/25 09:00 05/01/25 06:52 05/01/25 09:00 05/01/25 09:00
Vital Signs
Temp Pulse Resp BP Pulse Ox
98.4 F 102 24 115/74 92
05/01/25 06:52 05/01/25 09:00 05/01/25 06:52 05/01/25 09:00 05/01/25 09:00
Intake & Output
04/29/25 04/30/25 05/01/25 05/02/25
07:59 07:59 07:59 07:59
Intake Total 720 / 720 240 / 240 828 / 828
Output Total 1650 / 1650 900 / 900 1825 / 1825
Balance -930 / -930 -660 / -660 -997 / -997
Physical Exam
Physical Exam
GEN: No distress, awake, lethargic. obese
HEENT: supple, anicteric, mmm, eomi
LUNGS: CTA anterolaterally, no wheezes
CV: Reg, S1/S2, 2/6 murmur
ABD: soft, BS+, NT/ND
EXT: No cyanosis, clubbing. trace edema of B/L LE
NEURO: Gross non-focal
SKIN: Warm, pink, dry. No rash
: norwood
--- NOTE | 2025-05-01 09:54 | W.PN.NEURO.1 ---
Today's Communication / Plan
-
goal LDL <70, current LDL 51 no need to start statin therapy since LDL at goal
continue aspirin 81 mg
Discontinued clopidogrel due to heavy menstrual flow
Would consider use of anticoagulation as replacement for aspirin use, defer to cardiology regarding this
Neuro Assessment/Plan
Assessment
29-year-old female past medical history of mild autism/Asperger's, asthma, presenting to [facility] on 04/26/2025 with shortness of breath and fatigue worsening over the past 2 weeks neurology consulted for left sided weakness.
Head CT: Moderate age-related parenchymal atrophy. Chronic transcortical infarct in the right temporal lobe with encephalomalacia. Smaller chronic infarct in the white matter of the right frontal lobe. No intra- or extra-axial mass, hemorrhage, or
fluid collection. Mild subcortical, deep, and periventricular white matter low-attenuation, compatible with changes of chronic small vessel ischemic disease. Hyperostosis frontalis interna. The imaged paranasal sinuses and mastoid air cells are
clear.
CTA of head and neck failed to demonstrate lesions producing the above embolic source for acute ischemic strokes
Impression:
I. abrupt onset of left sided weakness, resolved, most likely related to embolic acute ischemic strokes in bilateral hemispheres
II. encephalopathy due to above listed acute ischemic strokes bihemispherically
Prior history of autism spectrum disorder
Plan
goal LDL <70, current LDL 51 no need to start statin therapy since LDL at goal
continue aspirin 81 mg
Discontinued clopidogrel due to heavy menstrual flow
Would consider use of anticoagulation as replacement for aspirin use, defer to cardiology regarding this
Will follow peripherally
Subjective/Objective
Subjective Data
Date of Service: May 01, 2025
Objective Data
Vital Signs
Temp Pulse Resp BP Pulse Ox
36.9 C 102 24 115/74 92
05/01/25 06:52 05/01/25 09:00 05/01/25 06:52 05/01/25 09:00 05/01/25 09:00
Lab Results
05/01/25 04:41
PT 18.3 Sec (11.4-14.6) H 04/26/25 14:56
INR 1.46 04/26/25 14:56
APTT 54.1 Sec (23.4-35.0) H 05/01/25 00:36
Sodium 138 mmol/L (135-145) 05/01/25 04:41
Potassium 4.0 mmol/L (3.5-5.1) 05/01/25 04:41
BUN 40 mg/dl (7-17) H 05/01/25 04:41
Glucose 89 mg/dl (70-99) 05/01/25 04:41
Calcium 8.3 mg/dl (8.4-10.2) L 05/01/25 04:41
Phosphorus 3.3 mg/dl (2.5-4.5) 04/28/25 02:43
Dtj-C-Niabzsgjhod Pept > 44653 pg/ml 04/26/25 14:56
Jat-D-Jahvrjuticc Pept Cancelled 04/26/25 14:56
LDL Cholesterol, Calc 51 mg/dl 04/30/25 03:46
Vitamin B12 767 pg/ml (239-931) 04/30/25 03:46
Patient Allergies
No Known Allergies Allergy (Verified 04/26/25 19:27)
Data Reviewed
-
MRI Head: Report Reviewed and Image Reviewed
Reviewed with: Physician
Old Records: Summarized
[2025-05-01 11:47] LABS: Serine Protease-3, IgG 1 AU/mL (0-19)
[2025-05-01 11:56] LABS: Glucose - Point of Care 98 mg/dl (70-99)
--- NOTE | 2025-05-01 14:22 | PTCARENOTE ---
The patient complained of being warm. She felt clamy to touch but not warm. Temperature was 97.5. Ice pack given for her forehead for comfort.
[2025-05-01] MEDS: FERRLECIT 110 MG IV (14:33)
[2025-05-01] MEDS: FLUSH (NSS) 1 FLUSH IV (14:35)
--- NOTE | 2025-05-01 14:36 | PTCARENOTE ---
MRI called about doing a cardiac MRI on the patient. They said it could not be done today but was inquiring about the possibility of doing it tomorrow. The health and safety tech asked if the patient would be able to hold her breath for 15 seconds. As of today
the patient is unable to hold her breath for that long. She is still orthopneic and experiencing TORO. Her father was very concerned about having the test done. He stated that 'she can not hold her breath that long.' She did have difficultly keeping
her month closed for a temperature. I let MRI know about the difficulty the patient might have during the test. She said she will try at a later date.
[2025-05-01] MEDS: HEPARIN 25000 UNITS/250 ML IV ×2 (15:30→17:44)
--- NOTE | 2025-05-01 15:35 | W.PN.UPDATE ---
Update Note
Progress Note Update
repeat lactic acid down from admission. planning for ROCÍO tomorrow to assess for cardioembolic etiology of CVA. NPO after midnight. cardiac MRI also ordered to rule out infiltrative disease in setting of CM, which is felt to be unlikely to be
ischemic in etiology given young age, limited risk factors. would have low threshold to consider for transfer to tertiary care center.
[2025-05-01 15:36] LABS: ALT (SGPT) 48 U/L (0-35); AST (SGOT) 26 U/L (14-36); Albumin 3.0 g/dl (3.5-5.0); Alkaline Phosphatase 99 U/L (38-126); Blood Urea Nitrogen 38 mg/dl (7-17); Calcium 8.3 mg/dl (8.4-10.2); Carbon Dioxide 27 mmol/L (22-30); Chloride 104 mmol/L (98-107); Estimated Creatinine Clearance 74 ml/min; Glucose 92 mg/dl (70-99); Potassium 4.1 mmol/L (3.5-5.1); Sodium 136 mmol/L (135-145); Total Protein 6.0 g/dl (6.3-8.2); eGFR 48.68
[2025-05-01] MEDS: FLUSH (NSS) 2 FLUSH IV (17:21)
[2025-05-01 17:59] LABS: Glucose - Point of Care 101 mg/dl (70-99)
[2025-05-01 18:08] LABS: APTT 70.5 Sec (23.4-35.0)
--- NOTE | 2025-05-01 18:35 | PTCARENOTE ---
The patient's Yuen has been clamped for a Pelvic/Vaginal US. Lasix was given at 1720 post renal US. (Pelvis/Vaginal US could not be done at that time as she was not filled enough. US asked to keep Yuen clamped until her bladder could be filled to
do the US later.) The patient notified me and said that she thinks she urinated. Her bed was soaked upon inspection. Her Yuen was still clamped. I inspected the Yuen. It appeared to be still inserted with no obstruction noted besides the clamp.
The balloon had 8ml of saline. I replaced the balloon with 10ml of saline. A complete bed change was done. Benoit attempt to refill her bladder for the US.
[2025-05-01 20:04] LABS: Glucose - Point of Care 116 mg/dl (70-99)
[2025-05-01 21:00] LABS: Hematocrit 30.7 % (37.0-47.0); Hemoglobin 9.4 g/dL (12.0-16.0); Mean Corp Hgb Conc. 30.6 g/dL (33.0-37.0); Mean Corpuscular Volume 80.2 fL (81.0-99.0); Nucleated Red Blood Cells % 0 %; Platelet Count 169 10^3/uL (130-400); Red Cell Dist. Width 16.5 % (11.5-14.5)
[2025-05-01] MEDS: DESENEX/MITRAZOL/ZEASORB 1 APPLIC TOPICAL (21:00)
[2025-05-01] MEDS: OFIRMEV 100 IV (21:01)
[2025-05-01 21:13] LABS: Magnesium 2.2 mg/dl (1.6-2.3)
[2025-05-01 21:15] LABS: Blood Urea Nitrogen 34 mg/dl (7-17); Calcium 8.4 mg/dl (8.4-10.2); Carbon Dioxide 26 mmol/L (22-30); Chloride 102 mmol/L (98-107); Estimated Creatinine Clearance 86 ml/min; Glucose 118 mg/dl (70-99); Potassium 4.0 mmol/L (3.5-5.1); Sodium 135 mmol/L (135-145); eGFR 57.80
[2025-05-01 21:25] LABS: Troponin I 0.031 ng/ml
[2025-05-01 22:12] LABS: Glucose - Point of Care 98 mg/dl (70-99)
--- NOTE | 2025-05-01 23:53 | PTCARENOTE ---
Patient received at change of shift resting in the bed. Patient reporting left upper chest/left scapula pain, unable to rate it or describe how it feels. The patient also reported briefly feeling dizzy prior to chest pain as well. Per the father the
patient also appeared more drowsy than previously in the day. BP 105/73. SaO2 on 2L NC 99-100%. An EKG was performed. Sinus tach on telemetry. [employer] Priyank was notified. Stat labs were drawn and sent. Portable CXR was ordered and completed.
One time dose of Ofirmev was ordered and given. Accucheck completed, glucose 116. NIH 3 (unchanged from previous shift's NIH). Pupils equal, round, reactive and brisk. Following Ofirmev the patient reported that her pain had improved. The patient
appeared more alert than previously noted and was more conversive. Heparin gtt infusing as ordered. [facility] called to ask for an update, they have no bed available at this time. RUE midline intact. Indwelling urinary catheter
draining napoleon urine. Discussed plan of care including NPO status at midnight. Mother of the patient staying overnight. Call hester within reach. Care ongoing.
[2025-05-02] VITALS (10 sets, daily range): BP systolic 109–154; BP diastolic 73–97; BMI 45.2
[2025-05-02 01:31] LABS: Hematocrit 30.2 % (37.0-47.0); Hemoglobin 9.4 g/dL (12.0-16.0); Mean Corp Hgb Conc. 31.1 g/dL (33.0-37.0); Mean Corpuscular Volume 81.2 fL (81.0-99.0); Nucleated Red Blood Cells % 0 %; Platelet Count 183 10^3/uL (130-400); Red Cell Dist. Width 16.7 % (11.5-14.5)
[2025-05-02 01:49] LABS: APTT 77.4 Sec (23.4-35.0)
[2025-05-02 02:10] LABS: ALT (SGPT) 43 U/L (0-35); AST (SGOT) 25 U/L (14-36); Albumin 3.2 g/dl (3.5-5.0); Alkaline Phosphatase 103 U/L (38-126); Blood Urea Nitrogen 33 mg/dl (7-17); Calcium 8.7 mg/dl (8.4-10.2); Carbon Dioxide 25 mmol/L (22-30); Chloride 104 mmol/L (98-107); Estimated Creatinine Clearance 80 ml/min; Glucose 90 mg/dl (70-99); Potassium 4.1 mmol/L (3.5-5.1); Sodium 137 mmol/L (135-145); Total Protein 6.4 g/dl (6.3-8.2); eGFR 52.88
[2025-05-02 06:49] LABS: Glucose - Point of Care 88 mg/dl (70-99)
--- NOTE | 2025-05-02 07:06 | W.PN.UPDATE ---
Update Note
Progress Note Update
Beginning of shift RN reports pt with c/o chest pain. Under clavicle. Unable to rate.
CXR done (improving pulmonary edema),CBC, BMP, troponin (all improving or stable), ofirmev x1.
After ofirmev pt pain improved.
--- NOTE | 2025-05-02 07:20 | W.PN.HOSP.TC ---
Addendum entered and electronically signed by Alden Saucedo MD 05/02/25 17:35:
Toxic metabolic encephalopathy
Waxing and waning mental status. Cannot completely exclude seizure/subclinical seizures especially in the setting of T bihemispheric infarcts. Therefore obtain EEG and will discuss this with neurology.
Acute new onset HFrEF with a dilated cardiomyopathy, unclear as to etiology, ?infectious such as viral or genetic or infilitritative
Cannot exclude viral though viral panel negative
Off milrinone
Continue on IV diuretics per Cards
Cardiac MRI
2d echo wihtout evidence of speckling to suspect amyloid
LHC tomorrow on 05/03 though less likely obstructive disease
?If conitnued work up is negative could this be inherited/genetic or autoimmune related
?Benefit from Endomyocardial bx to r/o infiltrative process
Follow renal function
NPO aftermidnight
Bihemisphermic multifocal acute infarct
-Likely embolic in nature
-Bcx negtive to suspect endocarditis
-Will check ROCÍO to r/o culture negative endocarditis
-Hypercoag workup pending, but if + will need repeat testing in 12weeks
-Continue Hep gtt along with aspirin
-Per neuro no need to stat statin as LDL <70
Original Note:
Today's Communication/Plan
-
- Continue IV lasix 40mg bid, per cards pending cath for guidance of conversion to PO
- Convert losartan to entresto (24/26mg) today
- Restart carvedilol 1.5625 mg daily
- Continue amio 200mg tid
- ROCÍO today
- Cardiac MRI ordered
- See remainder of plan above
Assessment / Plan
Assessment / Plan
Elodia Mcadams is a 29yo F w no significant pmh who p/w subacute dyspnea & GLORIA, found to have cardiomegaly, pulmonary edema, LVEF 24%, & severe MR all c/f acute HFrEF in s/o cardiomyopathy of unknown etiology.
#Acute HFrEF (24%), improving
#Severe MR
#Dilated cardiomyopathy
#Tachypnea, improved
Pt presented w ~1-2 weeks of worsening dyspnea and GLORIA. CXR (04/26): cardiomegaly & small bilat pleural effusions. Echo (04/26): LVEF 24%, global hypokinesis, severely dilated L ventricle, severe MR, mild TR, pulm artery pressure estimated 44mmHg. On
presentation - tachycardic, tachypneic without hypoxia or CP (98% RA but RR in 50s > put on 3L NC). BUN elevated 44. ABG w pH of 7.39, pCO2 of 34.
Precipitating dilated cardiomyopathy of unknown etiology. Ddx dilated cardiomyopathy: CAD (less likely in young pt, lipid panel & Ha1c wnl; pending cath) vs. viral (no hx of ppt sx, possible subclinical viral infection) vs. tick-borne bacterial (no
hx exposure, micro pending) vs. genetic syndromes (mom hx of a fib, uncle w some uknown electrical disorder of heart, no known cardiomyopathies in fam hx) vs. drug/alcohol toxicity (denies use) vs. sarcoid/autoimmune (mom with unspecified suspected
autoimmune dz; pending workup). Hx on presentation - 'No fever. No tick bites. No rashes. No cough. No recent travel.' Bedroom at home has mice infestation. She does not smoke or drink alcohol or use drugs. Rash on arms/legs reported as there
'awhile', not petechial/purpuric, blanchable, not targetoid, not in typical autoimmune distribution. Blood parasites smear negative, flu a/b negative, covid negative. Blood cx no growth. Hepatitis serologies negative. Ehrlichiosis & anaplasmosis &
Lyme & Rickettsiae negative. CRP elevated 142.8, ESR elevated 67. UA without proteinuria. JOAQUÍN negative, RF negative, ANCA negative. C3 wnl (93), C4 low (<8). ALEKSANDER not elevated (low). On 04/29, pt with worsening respiratory effort, tachypneic, put on
non-rebreather & milrinone started; remained stable overnight. Respiratory & mental status has improved since then through 05/02. Ddx remains subclinical viral trigger vs. genetic syndrome vs. autoimmune etiology, unspecified.
CXR (05/01) demonstrated: Bilateral alveolar opacification slightly improved suggesting resolving acute pulmonary edema; no significant pleural effusions.
This am: tachycardic 103bpm; RR 15. Satting 96% on RA. Fluid balance -1260ml. Afebrile, normotensive. Breathing comfortably on RA.
- Continue IV lasix 40mg bid, per cards pending cath for guidance of conversion to PO
- Convert losartan to entresto (24/26mg) today
- Restart carvedilol 1.5625 mg daily
- Cardiac MRI ordered, obtain once pt able to hold breath/lie flat
- Consider endomyocardial bx
- Cardiac cath planning on hold
- Consider transfer to [facility], per cards
- Plan to add GDMT stepwise as BP & renal fxn tolerate (currently ARB, BB; holding on starting SGLT2i, MRA for now)
- Okay for O2 support at night PRN
- Long-term, consider outpatient genetics workup if unable to determine other etiology of DCM
- Hold on viral panel given [facility] lab restrictions (parvovirus B19, HHV6, coxsackievirus, adenovirus, echovirus, CMV, HIV)
- S/p milrinone 0.125mcg/kg/min (04/29-05/01)
#Acute scattered infarcts, c/f embolic
#Encephalopathy in s/o acute illness, improving
#CT w chronic infarcts & atrophy
CT head obtained overnight 04/28 in s/o AMS. CT demonstrated: 'Chronic transcortical infarct in the right temporal lobe with encephalomalacia. Smaller chronic infarct in the white matter of the right frontal lobe. No intra- or extra-axial mass,
hemorrhage, or fluid collection. Mild subcortical, deep, and periventricular white matter low-attenuation, compatible with changes of chronic small vessel ischemic disease.' Possibly 2/2 hypercoagulable state in s/o autoimmune dz potentially
driving cardiomyopathy. See autoimmune w/u pending above. Will add hypercoagulable labs. Also consider ischemic infarcts in s/o vasoconstriction syndrome. Family reports that pt mouth appeared downturned last night & that she favors her R arm over
L. On exam, strength/sensation equal & symmetric bilateral face & UEs when attended to. L UE weaker when asked to squeeze both hands simultaneously, c/w lack of attentiveness. Left-sided spatial neglect is c/w R temporal stroke. R frontal deep white
matter stroke may be contributing to cognitive status decline & incontinence.
MRI and CTA (04/30) demonstrated: multifocal acute scattered infarcts c/f emboli; no evidence arterial stenosis. Bubble study negative for PDA (05/01). Renal US 05/01 unremarkable; modality not for assessing infarct.
05/02 morning - pt with much improved mental status, able to have conversations in full sentences & response to questions appropriately.
- Factor V leiden, prothrombin pending
- Antiphospholipid abs (anticardiolipin, beta2-glycoprotein I), protein c/s, antithrombin-heparin cofactor pending
- Plan for ROCÍO today
- Continue IV heparin (04/30-)
- Likely transition to warfarin on discharge
- Continue ASA 81mg
- Hematology following, appreciate recs
#Anemia, iron deficiency
Likely combination of heavy menstrual period over last week and inflammatory state. Microcytic anemia, Fe deficiency (35). TIBC 295 w 11% saturation. Ferritin 60.7 S/p PO iron 04/27. B12, folate wnl. S/p 5 bags IV iron 125mg/bag.
Today: Hgb up to 9.4, hct 30.2
- Trend Hgb
- Start 325mg PO feosol every other day
- Transvaginal/transpelvic US ordered, pending sufficiently full bladder
- Transfuse if hgb<7
- Hematology following, appreciate recs
#Nonsustained polymorphic VT
#Long QT
#Trop elevation, resolved
Trop likely elevated in 2/2 nonischemic myocardial injury s/o acute HF. Peaked at 0.207, no longer trending. EKG (04/26): prolonged QT 500 & sinus tachy. C/f prior episode of torsades. Low suspicion for ACS given EKG & lack of CP. Given episode of
worsened respiratory status 04/29, repeat EKG & troponin trend. EKG (04/29): no changes from 04/26, QT prolonged. Troponin: 0.074
Today: Mg 2.2, K 4.1
- Keep Mg>2, K>4, replete as needed
- Continue daily KCl 40meq
- Amiodarone 200mg tid (04/29-)
- Telemetry
#SIRS, resolving
Pt meeting SIRS criteria on/off due to tachycardia & tachypnea. 05/01 WBC normalized (14.2>11.8>10.9>13.9>9.5). 05/02 tachypnea normalized. Low suspicion for infectious etiology given afebrile, no localizing sx or exposure, WBC had been trending down
in absence of abx. Elevated HR/RR explained by acute HF. Lactate not elevated, 1.7. Increase in leukocytosis likely 2/2 inflammatory state/stress w respiratory distress episodes.
-Continue mgmt of HF as above
-Monitor vitals closely
#Rash in bilateral extremities, improving
#L 2nd toe duskiness, improving
Erythematous, scattered (somewhat reticular) rash on bilateral forearms, feet, calves. Erythema less notable today, faded from admission. Per father, when he picked her up from grandparents house recently (had been living there for months), rash was
'all over' her arms & legs, 'all up and down.' This was new, never seen before. Not in distribution c/f tick-borne illness. Rash is not pruritic. Given semi-reticular distribution & c/f antiphospholipid syndrome, c/f autoimmune etiology remains on
differential. However, blanchable rash makes this unlikely. Tip of L 2nd toe dark purple. Likely 2/2 ischemia in s/o ongoing cardiomyopathy, w c/f hypercoagulable or autoimmune state (e.g. chillblain's). Not likely infectious. No L calf swelling or
tenderness. Appearance of rash & duskiness of toe have been improving over admission, color normalizing 05/02.
- Follow workup & anticoag mgmt as above
- Continue to monitor sx
- Hematology following, appreciate recs
#Positive urine cx
Pt urine cx positive for gram negative bacilli, e coli, garcia-sensitive. Urine with +leuk esterase and WBC 16-30. Given pt mental status, unable to ascertain if sx are present - asymptomatic bacteriuria vs. simple UTI. Given afebrile & lack of
leukocytosis (WBC 10.8). Family reports that pt had incontinence in lead-up to admission. Nursing reports urine looks cloudy. Will trt empirically alfa w indwelling norwood, although potentially asx bacteriuria.
- Nitrofurantoin 100mg bid for 5-days (04/29-)
- Monitor for complaints of dysuria, suprapubic pain
#Elevated Cr, suspected cardiorenal
Unknown baseline Cr but pt without known renal condition at baseline. Likely 2/2 cardiorenal syndrome in s/o acute HF.
Cr: 1.6>1.5>1.4>1.6>1.5>1.4.
- Continue to monitor w diuresis
#Chronic
-Suspected mild autism/Asperger's, father c/f capacity - psych consult 04/27, father will make decisions re: patient's care
-Asthma - albuterol
#Global
-DVT ppx: on IV heparin
-Diet: cholesterol lowering, regular w thin liquids per speech eval; 64oz fluid restriction
-Code: full
-Dispo: plan for pt to go to live with father and sisters on discharge; pending resolution of acute HF
Anticipated Discharge: > 48 hours
Subjective/Interval History
-
Date of Service: May 02, 2025
Per RN note, pt w CP early this am, improved s/p IV tylenol. CXR & labs unremarkable.
This morning on exam, patient denies any chest pain. Patient much, much more alert and conversant than has been seen since admission. Patient lying on her side in bed, propped up on pillows. Able to converse in full sentences and to answer
questions appropriately. Also spontaneously offering information. More expressive. Patient appeared to be breathing comfortably without nasal cannula. Says that she needs to pee because has been holding urine and demands of ultrasound.
Otherwise no complaints. When asked if she is still having shortness of breath when lying flat on her back, patient states that she has not tried this. Mom at bedside this morning. Norwood catheter was removed earlier this morning.
Objective Data
-
Labs:
Laboratory Results
05/01/25 05/02/25 05/02/25
20:40 01:18 07:30
WBC 9.5 9.9
Hgb 9.4 L 9.4 L
Hct 30.7 L 30.2 L
Plt Count 169 183
APTT 77.4 H Pending
Sodium 135 137
Potassium 4.0 4.1
Chloride 102 104
Carbon Dioxide 26 25
BUN 34 H 33 H
Creatinine 1.3 H 1.4 H
Glucose 118 H 90
Calcium 8.4 8.7
Total Bilirubin 1.4 H
AST 25
ALT 43 H
Alkaline Phosphatase 103
Vital Signs:
Vital Signs
Temp Pulse Resp BP Pulse Ox
97.8 F 103 16 120/77 96
05/02/25 07:10 05/02/25 07:10 05/02/25 07:10 05/02/25 04:38 05/02/25 07:10
I&O
05/01/25 05/02/25 05/03/25
06:59 06:59 06:59
Intake Total 828 / 828 240 / 240
Output Total 1825 / 1825 1500 / 1500
Balance -997 / -997 -1260 / -1260
Review of Systems
-
History Source: Patient
Respiratory: Reports No Symptoms
Cardiac: Reports No Symptoms
Physical Exam
-
General: Well Developed, Well Nourished, No Apparent Distress (Does not appear to be in respiratory distress), Comfortable, Conversant (Speech slightly slurred but patient conversant in full sentences, clear train of thought) and Obese (Severe
obesity)
HEENT: Normocephalic, Atraumatic and Anicteric
Respiratory: Clear to Auscultation and Non Labored Respirations
Cardiac: Regular Rhythm and Murmur (Less audible)
GI: Soft and Nondistended
Genito-urinary: Other (Without Norwood this morning)
Musculoskeletal: No Edema (Edema improved in bilateral lower extremities)
Skin: Rash (Rash improved across upper and lower extremities bilaterally)
Neuro: Awake, Alert and Oriented
Psych: Calm
Data Reviewed
-
Total Time Spent with Patient (in minutes): 10
Critical Care Time (in minutes): 45
Diagnostic Radiology: Report Reviewed by me
Labs: Labs Reviewed by me
[2025-05-02] MEDS: KCL 40 MEQ PO (08:23)
[2025-05-02] MEDS: COREG 1.5625 MG PO ×2 (08:24→19:33)
[2025-05-02] MEDS: PACERONE 200 MG PO ×3 (08:24→19:35)
[2025-05-02] MEDS: DESENEX/MITRAZOL/ZEASORB 1 APPLIC TOPICAL ×2 (08:24→19:34)
[2025-05-02] MEDS: COZAAR 25 MG PO (08:25)
[2025-05-02] MEDS: MACROBID 100 MG PO ×2 (08:25→19:34)
[2025-05-02] MEDS: LOW STRENGTH ASPIRIN 81 MG PO (08:25)
[2025-05-02 08:51] LABS: Iron 126 ug/dl (37-170); Magnesium 2.2 mg/dl (1.6-2.3)
[2025-05-02 08:55] LABS: APTT 67.4 Sec (23.4-35.0)
--- NOTE | 2025-05-02 09:11 | PTCARENOTE ---
Patient sent to [facility] for transvaginal US on a stretcher
--- NOTE | 2025-05-02 09:22 | W.PN.CARDCBS ---
Addendum entered and electronically signed by Danielle Espinosa MD 05/02/25 13:11:
I saw and examined the patient.
The Galley Cook's note was reviewed and I agree with the note.
Comment: Patient appears to have improved from a mental status standpoint slightly though this is waxing and waning. Family is at bedside. She denies any chest discomfort or shortness of breath
Vital signs and lab work reviewed. Creatinine is stable and hemoglobin is stable so far. On exam patient is A and O x 1 to 2, morbidly obese, awake and alert, regular rhythm, normal S1 and S2, 2 out of 6 holosystolic murmur at the apex, rubs or
gallops, elevated JVD with JVP of about 10 cm of water, fine bibasilar Rales, abdomen is obese, soft, nontender, nondistended, warm extremities with trace bilateral lower extremity edema
Telemetry: Short runs of nonsustained VT.
Assessment: Patient is a 29-year-old female morbidly obese with past medical history of asthma and Autism/Asperger's syndrome coming in with 2-week history of shortness of breath and fatigue found to have a new cardiomyopathy with severe LV
dysfunction and acute decompensated heart failure with reduced ejection fraction undergoing IV diuresis with presentation complicated by waxing and waning altered mental status found to have large burden of acute embolic ischemic strokes from
unclear etiology, acute on chronic anemia of unclear etiology, ROGELIO versus CKD
Recommendations:
1. Large burden of acute embolic strokes with waxing and waning mental status: Patient is undergoing ROCÍO this afternoon and neurology recommends EEG. No evidence of atrial fibrillation on telemetry so far. No evidence of LV thrombus by Definity
echocardiogram. Negative bubble study. IV heparin with eventual plan for likely Eliquis if no objections from a neurology standpoint
2. Cardiomyopathy: Unclear etiology. On exam continues to appear in any acute decompensated heart failure but no evidence of low flow state or cardiogenic shock. Lactates have been normal. She was successfully taken off milrinone. In the
setting we will pursue a left and right heart catheterization tomorrow to rule out obstructive CAD given patient is more awake and alert today than before once we have further information from ROCÍO and EEG with waxing and waning mental status. Based
on this we will have discussions with pathology assistant at [facility] in regards to if management would differ with transfer to a tertiary care center given she is otherwise young with multiple significant comorbid conditions and ongoing
medical problems currently. Discussed all of this in extensive detail with family at bedside and dad over the phone reviewing the risk and benefits of the procedure and they are agreeable to proceeding.
3. Acute decompensated heart failure: Cont IV diuresis until euvolemic, strict ins and outs, daily weights, low sodium diet.
Extensive discussions at multi-disciplinary level and with primary team as well with nursing and family at bedside.
Danielle Espinosa MD, LOCATED WITHIN [facility], [facility],
Total time spent: 52mins.
Addendum entered and electronically signed by Niesha Villanueva PA-C 05/02/25 10:14:
full exam:
GEN: No distress, awake, brighter today. obese
HEENT: supple, anicteric, mmm, eomi
LUNGS: CTA anterolaterally, no wheezes. tachypneic
CV: Reg and tachy, S1/S2, 2/6 murmur
ABD: soft, BS+, NT/ND
EXT: No cyanosis, clubbing. trace edema of B/L LE
NEURO: Gross non-focal
SKIN: Warm, pink, dry. No rash
: [place]
discussed below with mother at bedside
Original Note:
Today's Communication / Plan
-
ROCÍO today
follow on tele. continue amio
GDMT of CM
cardiac MRI, hopefully in AM
low threshold to transfer to tertiary care facility
Impression / Plan
-
PCP: None
Cardiology: None
Impression:
Presented to the ER with acute hypoxic respiratory failure and edema 04/26/2025
Acute hypoxic respiratory failure
Acute HFrEF
Newly diagnosed CM EF 20 to 25% by echo 04/26/2025
Severe MR
Elevated troponin
ROGELIO
Anemia, initial Hgb 9 on 04/26/2025
Leukocytosis
Thrombocytopenia
Hyponatremia
Elevated lactic acid level
Elevated LFTs
NSVT
Echo 04/26/2025: EF 24%, global hypokinesis, severe MR, mild TR, PAP 44 mmHg
Plan:
-Patient came to the ER on 04/26/2025 with new diagnosis of acute HF and CM. Cardiology has been following since admission.
-Weight is down 10lbs from admission if accurate, the patient is being weighed using bed scale. Continue IV lasix 40mg BID
-Milrinone 0.125 mcg/kg/min started 04/29/2025 PM, weaned off M. lactic acid 0.8 on 05/01.
-Cr stable at 1.4, has been in 1.4-1.6 range since admission
-EF 24% with global hypokinesis and severe MR by echo 04/26/2025
-she has been lethargic since admission but particularly since 04/30, baseline unclear. had brain MRI which showed bilateral CVAs. neurology following. presently on IV heparin. bubble study negative 05/01. mentation improving 05/02.
-heme following for anemia, concern for thrombophilia. hgb of 5.4 on 04/30 felt to be lab error as repeat was at baseline of 8.9
-plan for ROCÍO today to evaluate for both cardioembolic source of CVA as well as reeval MR
-given complexity of case in young woman, would recommend transfer to tertiary care center for evaluation. concern for myocarditis as etiology.
-she will need eventual work up with cardiac cath (R/L) and cardiac MRI for presumed NICM. of note, patient is claustrophobic and requesting BZD for MRI brain and she will not be able to have any sedation for cardiac MRI as patient is need to be
able to interact with cardiac MRI staff during that study. also presently unable to lie flat, will continue to reeval
-continue losartan and low dose coreg. uptitrate GDMT for CM as able
-she has had brief runs of polymorphic and monomorphic VT since admission mostly in setting of hypokalemia, 1 6-beat run of NSVT overnight. Keep K>4 and mag >2. continue amiodarone 200mg TID. follow daily EKGs to follow QTc.
-Patient has authorized her father to make medical decisions for her
-d/w nursing
PREADMIT DATA: Patient came to the ER today with SOB and LE edema and is being admitted with acute HF and cardiology has been consulted. Patient lives with her maternal grandmother and her mother side of the family had been reporting that the
patient was more swollen and SOB. The patient's father was alerted that the patient was more swollen and that while some of the mother's family felt that her symptoms were not severe other family members felt that she needed 911 called and so the
father left work early to check on the patient today then brought her to [facility] ER to be evaluated. The patient's father reports that his daughter is usually conversant and that when he saw her today she was barely responsive and did not appear to be
herself, she had significant LE edema that she does not usually have. Reportedly patient has her own room at her grandmother's house and it is infested with mice because she takes food and drink into her room and does not realize that she has to
throw it out. Family reports that patient has normal intelligence level without any history of developmental delay and was able to graduate high school, but is not currently employed. Patient has never been officially diagnosed as being autistic,
but the family reports that she does not do well with physical touch and has trouble making complex decisions. It is unclear how long patient has been SOB, she told the hyperbaric technologist is been weeks and she told family it has been a couple of days.
Patient denies any chest pain.
Progress Note - [employer]
Subjective
Date of Service: May 02, 2025
clearer today, more awake. remains with orthopnea
Objective
Labs:
05/02/25 01:18
05/02/25 01:18
Labs
Hgb 9.4 g/dL (12.0-16.0) L 05/02/25 01:18
Hct 30.2 % (37.0-47.0) L 05/02/25 01:18
Plt Count 183 10^3/uL (130-400) 05/02/25 01:18
PT 18.3 Sec (11.4-14.6) H 04/26/25 14:56
INR 1.46 04/26/25 14:56
APTT 67.4 Sec (23.4-35.0) H 05/02/25 08:30
Sodium 137 mmol/L (135-145) 05/02/25 01:18
Potassium 4.1 mmol/L (3.5-5.1) 05/02/25 01:18
BUN 33 mg/dl (7-17) H 05/02/25 01:18
Creatinine 1.4 mg/dL (0.6-1.0) H 05/02/25 01:18
Glucose 90 mg/dl (70-99) 05/02/25 01:18
Troponins
04/29/25 04/29/25 04/29/25
16:45 16:52 23:43
Troponin I Cancelled 0.074 H* 0.063 H*
04/30/25 04/30/25 05/01/25
03:46 10:45 20:40
Troponin I 0.061 H* Cancelled 0.031
Vital Signs and I&O:
Vital Signs
Temp Pulse Resp BP Pulse Ox
97.8 F 105 16 122/84 97
05/02/25 07:10 05/02/25 07:12 05/02/25 07:10 05/02/25 07:12 05/02/25 07:12
Vital Signs
Temp Pulse Resp BP Pulse Ox
97.8 F 105 16 122/84 97
05/02/25 07:10 05/02/25 07:12 05/02/25 07:10 05/02/25 07:12 05/02/25 07:12
Intake & Output
04/30/25 05/01/25 05/02/25 05/03/25
07:59 07:59 07:59 07:59
Intake Total 240 / 240 828 / 828 240 / 240
Output Total 900 / 900 1825 / 1825 1500 / 1500
Balance -660 / -660 -997 / -997 -1260 / -1260
Physical Exam
Physical Exam
GEN: No distress, awake, alert
HEENT: supple, mmm
LUNGS: no audible wheezes
CV: Reg and tachy on tele
ABD: soft, BS+, NT/ND
EXT: No cyanosis, clubbing. trace edema B/L
SKIN: Warm, pink, dry. No rash
[2025-05-02] MEDS: LASIX 40 MG IV ×2 (09:38→16:38)
[2025-05-02 09:50] LABS: Glucose - Point of Care 139 mg/dl (70-99)
[2025-05-02] MEDS: HEPARIN 25000 UNITS/250 ML IV (09:50)
--- NOTE | 2025-05-02 11:11 | W.PN.NEURO.1 ---
Today's Communication / Plan
-
Would consider use of anticoagulation as replacement for aspirin use, defer to cardiology regarding this
Okay check EEG due to reported waxing and waning cognitive function due to potential risk for seizure
Neuro Assessment/Plan
Assessment
29-year-old female past medical history of mild autism/Asperger's, asthma, presenting to [facility] on 04/26/2025 with shortness of breath and fatigue worsening over the past 2 weeks neurology consulted for left sided weakness.
CTA of head and neck failed to demonstrate lesions producing the above embolic source for acute ischemic strokes
Impression:
I. abrupt onset of left sided weakness, resolved, most likely related to embolic acute ischemic strokes in bilateral hemispheres
II. encephalopathy due to above listed acute ischemic strokes bihemispherically
Prior history of autism spectrum disorder
Plan
goal LDL <70, current LDL 51 no need to start statin therapy since LDL at goal
continue aspirin 81 mg
Would consider use of anticoagulation as replacement for aspirin use, defer to cardiology regarding this
Okay check EEG due to reported waxing and waning cognitive function due to potential risk for seizure
Will follow peripherally
Subjective/Objective
Subjective Data
Date of Service: May 02, 2025
Objective Data
Vital Signs
Temp Pulse Resp BP Pulse Ox
36.6 C 107 16 109/73 97
05/02/25 07:10 05/02/25 11:00 05/02/25 07:10 05/02/25 09:38 05/02/25 10:58
Lab Results
05/02/25 01:18
05/02/25 01:18
PT 18.3 Sec (11.4-14.6) H 04/26/25 14:56
INR 1.46 04/26/25 14:56
APTT 67.4 Sec (23.4-35.0) H 05/02/25 08:30
Sodium 137 mmol/L (135-145) 05/02/25 01:18
Potassium 4.1 mmol/L (3.5-5.1) 05/02/25 01:18
BUN 33 mg/dl (7-17) H 05/02/25 01:18
Glucose 90 mg/dl (70-99) 05/02/25 01:18
Calcium 8.7 mg/dl (8.4-10.2) 05/02/25 01:18
Phosphorus 3.3 mg/dl (2.5-4.5) 04/28/25 02:43
Spe-I-Ptgpgshdtus Pept > 44560 pg/ml 04/26/25 14:56
Tfw-M-Xenodljgdei Pept Cancelled 04/26/25 14:56
LDL Cholesterol, Calc 51 mg/dl 04/30/25 03:46
Vitamin B12 767 pg/ml (239-931) 04/30/25 03:46
Patient Allergies
No Known Allergies Allergy (Verified 04/26/25 19:27)
Past History
Past History
ED Past Medical History: CVA (Bihemispheric April 2025) and Other (Autism spectrum disorder, cardiomyopathy 2024)
ED Past Surgical History: None
Social History
Living: with family
Employment: Employed
Family History
Family History: Other (Reviewed and noncontributory)
Medications
-
Medications:
Generic Name Dose Route Start Last Admin
Trade Name Freq PRN Reason Stop Dose Admin
Acetaminophen 650 mg 04/26/25 17:58
Acetaminophen 325 Mg Tablet PO 05/24/25 17:57
Q4HPRN PRN
mild pain/PRO/temp> 100.4F
Amiodarone HCl 200 mg 04/29/25 22:00 05/02/25 08:24
Amiodarone 200 Mg Tablet PO 05/27/25 21:59 200 mg
TID RICKI Administration
Aspirin 81 mg 04/27/25 11:00 05/02/25 08:25
Aspirin 81 Mg Chewable Tablet PO 05/25/25 10:59 81 mg
DAILY RICKI Administration
Carvedilol 1.5625 mg 04/29/25 20:00 05/02/25 08:24
Carvedilol 3.125 Mg Tablet PO 05/27/25 19:59 1.5625 mg
BID RICKI Administration
Clopidogrel Bisulfate 75 mg 04/30/25 08:00 04/30/25 09:59
Clopidogrel 75 Mg Tablet PO 05/28/25 07:59 Not Given
On Hold: 04/30/25 09:16 DAILY RICKI
Ferrous Sulfate 325 mg 05/02/25 11:00
Ferrous Sulfate 325 Mg Tablet PO 05/30/25 10:59
Q48H RICKI
Furosemide 40 mg 04/27/25 08:00 05/02/25 09:38
Furosemide 40 Mg (10 Mg/Ml) 4 Ml Vial IV 05/25/25 07:59 40 mg
BID AT 0800,1600 RICKI Administration
Heparin Sodium 25,000 units in 250 mls @ 0 mls/hr 04/30/25 17:15 05/02/25 09:50
Heparin 11898 Units/250 Ml IV 250 mls
PER PROTOCOL RICKI Administration
Protocol
Per Protocol
Insulin Aspart 0 units 04/29/25 16:30 05/02/25 09:58
Insulin Aspart Low Resistance 300 Units/3 Ml Pen.Injctr SC 05/27/25 16:29 Not Given
AC RICKI
Protocol
Miconazole Nitrate 0 applic 05/01/25 20:00 05/02/25 08:24
Miconazole Powder Bottle TOPICAL 05/29/25 19:59 1 applic
BID RICKI Administration
Nitrofurantoin Macrocrystals 100 mg 04/29/25 12:00 05/02/25 08:25
Nitrofurantoin Monohydrate 100 Mg Capsule PO 05/03/25 23:59 100 mg
BID RICKI Administration
Potassium Chloride 40 meq 04/28/25 09:11 05/02/25 08:23
Potassium Chloride 20 Meq Extended Release Tablet PO 05/25/25 10:59 40 meq
DAILY RICKI Administration
Sacubitril/Valsartan 1 tab 05/03/25 08:00
Sacubitril 24 Mg/Valsartan 26 Mg (Entresto) Tab PO 05/31/25 07:59
BID RICKI
Sodium Chloride 0 flush 04/26/25 19:00 05/01/25 17:21
Sodium Chloride 0.9% (Flush) Syringe IV 05/24/25 18:59 2 flush
PER PROTOCOL RICKI Administration
[2025-05-02 11:26] LABS: Glucose - Point of Care 95 mg/dl (70-99)
--- NOTE | 2025-05-02 11:30 | PTCARENOTE ---
Unable to perform transvaginal US, patient returned to bed. NPO except PO meds. Mouth care provided, tongue dry. ST HR 100-110, trace edema. She is AO x3, speech slurred, slow, left sided weakness. Orthopneic, occasional cough, diminished breath
sounds, placed on 2 liters, appears mildly short of breath, 97%. Right midline with heparin gtt at 1500units/hr. Voided on the bedpan. mildly diaphoretic, accu check 139. BP 129/97, family at bedside. Report called to Ana in the lab clerk
--- NOTE | 2025-05-02 12:05 | PTCARENOTE ---
Patient sent to the livestock laborer. She has periods of lethargy, nodding, following directions, eyes closed. She eventually became more alert, eyes open now. Incontinent of large amounts of urine, care provided
[2025-05-02 13:24] LABS: Glucose - Point of Care 88 mg/dl (70-99)
--- NOTE | 2025-05-02 15:26 | PTCARENOTE ---
Patient received from the laborer adjustable steel joist. AO x3, eyes open, more alert than earlier, talking, following commands, conversant, asking for ice chips, slurred speech. NSR HR 90's, 115/89, POX 99%
--- NOTE | 2025-05-02 16:33 | CM ---
Reviewed chart. Tried to see Miss Mcadams but she was off the floor for a test. Telephone call to [facility] to check on status of referral. Currently they do not have an available bed. The plan is for her to go to her fathers home when
ready for discharge. He resides in a spilt level home without any steps to enter. She will have a first floor set-up. Prior to admission she was independent with ambulation and adls. Will need to see her current functional level to see if she will
have any skilled care needs. Meical work-up in progress. The discharge plan is to return home with her father and VNA services versus some level of inpatient rehab. if indicated when medically stable.
[2025-05-02] MEDS: FEOSOL 325 MG PO (16:39)
[2025-05-02 17:51] LABS: APTT 73.7 Sec (23.4-35.0)
--- NOTE | 2025-05-02 20:51 | PTCARENOTE ---
Patient received at change of shift resting in the bed. Sinus rhythm/sinus tach on telemetry. Oxygen saturation 97-99% on 2L NC. AOx3. NIH 3. Neurologically patient is weaker L > R upper and lower extremities. Pupils 4mm equal, round, reactive and
brisk. Patient denies pain. Denies feeling lightheaded or dizzy. Repositioned in the bed for pressure ulcer prevention. Heparin gtt infusing at 1500units/hr. LUE PIV intact. RUE midline intact. Call hester within reach. Plan of care discussed. Care
ongoing.
Patient accepted and bed ready at [facility]. Report given to Aubrey LINO, report number [phone]. Transport set up by . Patient and family updated on planned transport time. Update given to [facility] on transport time. Care ongoing.
[2025-05-02 21:51] LABS: Glucose - Point of Care 102 mg/dl (70-99)
--- NOTE | 2025-05-02 22:28 | PTCARENOTE ---
Patient to [facility] by ground transport. Spoke with Iván on [address] to give update on arrival time. Patient's mother and father aware.
--- NOTE | 2025-05-02 22:39 | W.PN.UPDATE ---
Update Note
Progress Note Update
Completed transfer form, transfer arranged to transport to [facility]. Patient unable to sign, contacted patient's father Jerry McadamsAFSHAN and obtained verbal consent for transfer, witnessed by RN.
Request from resident at [facility], Dr. Francisca Alford [phone] for provider to provider report. Called and report was given, full transfer packet sent with patient.
[2025-05-03 02:07] LABS: Beta-2-Glycoprotein I Ab. IgA 13 SAU (<=20); Beta-2-Glycoprotein I Ab. IgG 31 SGU (<=20); Beta-2-Glycoprotein I Ab. IgM <10 SMU (<=20)
[2025-05-03 06:02] LABS: Factor 2 Activity(Prothrombin) 83 % (86-150)
[2025-05-04 18:18] LABS: Anticoagulant Med Neutralizati Not Performed (Not Performed); Neutralized dRVTT Screen Ratio Not Performed (<=1.20); Prothrombin Time 16.5 s (12.0-15.5); dRVTT 1.1 Mix Ratio 1.38 (<=1.20); dRVTT Confirmation Ratio 1.54 (<=1.20); dRVTT Screen Ratio 1.99 (<=1.20)
== END 2025-05-02 23:59 | disposition short-term general hospital (02) | DRG 291 ==
LOC: IVU 17:01
PROVIDERS: Internal Medicine; Internal Medicine Cardiovascular Disease; Nurse Practitioner Family; Physician Assistant; Physician Assistant Medical; Student in an Organized Health Care Education/Training Program; ADMITTING PHYSICIAN Hospitalist; ATTENDING PHYSICIAN Hospitalist; CONSULT PHYSICIAN Internal Medicine Cardiovascular Disease; CONSULT PHYSICIAN Internal Medicine Hematology & Oncology; CONSULT PHYSICIAN Psychiatry & Neurology Clinical Neurophysiology; CONSULT PHYSICIAN Psychiatry & Neurology Psychiatry; EMERGENCY PHYSICIAN Emergency Medicine
PROC: B24BZZ4 Ultrasonography of Heart with Aorta, Transesophageal (ICD-10-PCS; 2025-05-02)
DX: I50.21 Acute systolic (congestive) heart failure (principal); G92.8 Other toxic encephalopathy; J96.01 Acute respiratory failure with hypoxia; I42.0 Dilated cardiomyopathy; R65.10 Systemic inflammatory response syndrome (SIRS) of non-infectious origin without acute organ dysfunction; N17.9 Acute kidney failure, unspecified; E87.1 Hypo-osmolality and hyponatremia; E87.20 Acidosis, unspecified; I47.20 Ventricular tachycardia, unspecified; I67.82 Cerebral ischemia; F84.0 Autistic disorder; Z68.42 Body mass index [BMI] 45.0-49.9, adult; I5A Non-ischemic myocardial injury (non-traumatic); I42.9 Cardiomyopathy, unspecified; I42.8 Other cardiomyopathies; J45.909 Unspecified asthma, uncomplicated; D72.829 Elevated white blood cell count, unspecified; D69.6 Thrombocytopenia, unspecified; D50.0 Iron deficiency anemia secondary to blood loss (chronic); N92.0 Excessive and frequent menstruation with regular cycle; R74.01 Elevation of levels of liver transaminase levels; I05.1 Rheumatic mitral insufficiency; G31.9 Degenerative disease of nervous system, unspecified; E66.01 Morbid (severe) obesity due to excess calories; Z11.52 Encounter for screening for COVID-19; Z56.0 Unemployment, unspecified; Z59.71 Insufficient health insurance coverage; Z79.899 Other long term (current) drug therapy; Z86.73 Personal history of transient ischemic attack (TIA), and cerebral infarction without residual deficits
CPT/HCPCS: 36600; 70450; 70496; 70498; 70551; 71045; 76770; 80048; 80053; 80061; 81003; 81015; 82140; 82164; 82550; 82570; 82607; 82728; 82746; 82805; 82962; 83036; 83516; 83540; 83550; 83605; 83735; 83880; 83935; 84100; 84132; 84156; 84300; 84439; 84443; 84484; 84703; 85014; 85018; 85025; 85027; 85210; 85307; 85520; 85598; 85610; 85613; 85652; 85670; 85730; 86038; 86140; 86146; 86147; 86148; 86160; 86430; 86618; 86704; 86706; 86708; 86757; 86803; 86850; 86900; 86901; 87015; 87040; 87077; 87086; 87186; 87207; 87340; 87468; 87484; 87502; 87798; 87811; 92610; 93005; 93306; 93308; 93312; 93320; 93325; 93975; 94760; 96374; 99285; J2260; J2916; Q9950; Q9967

== ENCOUNTER 2025-06-15 12:56 | Emergency (ER) | payer MEDICAID, SELFPAY ==
[2025-06-15 13:00] VITALS: BP 115/58
--- NOTE | 2025-06-15 16:03 | ED.GENMED ---
History of Present Illness
<aEn Mcadams DO - Last Filed: 06/15/25 16:07>
General
Chief Complaint: DVT/Possible Blood Clot
Time Seen by Provider: 06/15/25 14:39
<Anastasia Melchor PA-C - Last Filed: 06/15/25 18:34>
General
Source: patient, family and other
Exam Limitations: none
History of Present Illness
History of Present Illness:
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
home accompanied by her grandmother for evaluation of peeling skin to the toes of her bilateral feet as well as a dark spot to the distal aspect of the left third toe. Pt reports that the peeling of the skin started recently. She reports that the
dark spot on her left toe was present during her recent hospitalization. She reports that the dark spot is actually improving. She reports that her sister has been peeling and trimming the sloughed skin off of her feet and as she does it, the dark
spot seems to come off too and therefore is improving. Pt denies pain to the feet or toes. Pt denies recent fevers, chills, chest pain, shortness of breath. Pt notes that she was seen by her PCP who ordered ultrasounds of her legs to have
performed as an outpatient. Pt had difficulty making an appointment for the ultrasound so her doctor sent her to the emergency department for evaluation. Pt denies she has ever seen a vascular surgeon but her PCP did mention it.
Past History
<Ean Mcadams DO - Last Filed: 06/15/25 16:07>
Past History
ED Past Medical History: CVA (Bihemispheric April 2025) and Other (Autism spectrum disorder, cardiomyopathy 2024)
ED Past Surgical History: None
Social History
Living: with family
Employment: Employed
Family History
Family History: Other (Reviewed and noncontributory)
<Anastasia Melchor PA-C - Last Filed: 06/15/25 18:34>
Social History
Tobacco: Non-smoker
Alcohol: None
Drug: None
Review of Systems
<Anastasia Melchor PA-C - Last Filed: 06/15/25 18:34>
Review of Systems
All Other Systems: Not applicable
Constitutional: Reports no symptoms; Denies fever or chills
EENT: Reports no symptoms
Respiratory: Reports no symptoms
Cardiac: Reports no symptoms; Denies chest pain
ABD/GI: Reports no symptoms
: Reports no symptoms
Musculoskeletal: Reports no symptoms
Skin: Reports other (peeling of the skin of the toes on the feet bilaterally, dark spot to the left third toe)
Neurological: Reports no symptoms
Endocrine: Reports no symptoms
Hematologic/Lymphatic: Reports no symptoms
Psychiatric: Reports no symptoms
Phy Exam
<Anastasia Melchor PA-C - Last Filed: 06/15/25 18:34>
General Physical Exam
General Presentation: well appearing and no apparent distress
General Skin: warm and dry
General Habitus: normal
General Mental: alert
General Hydration: appears well hydrated
ENT Exam
ENT Exam: EOMI
Cardiovascular Exam
Cardiovascular Exam: regular rate/rhythm, no edema, no murmur and normal peripheral pulses
Pulmonary Exam
Pulmonary Exam: lungs clear, no respiratory distress, no rales, no crackles, no rhonchi, no stridor, no wheezing and no cough
Neurological Exam
Neurological Exam: alert, oriented x3, no motor deficits and speech normal
Skin Exam
Skin Exam: normal color, warm/dry and other (desquamation of the skin of the toes bilaterally, there is a small amount of superficial black tissue to the distal aspect of the left third toe, some of it is able to be removed and demonstrates normal,
healthy skin underneath, no ttp over the toes or feet, 2+ DP pulses bilaterally, SILT)
Psychiatric Exam
Psychiatric Exam: normal mood/affect
Course
<Ean Mcadams DO - Last Filed: 06/15/25 16:07>
Orders/Labs/Results
Orders:
Orders
06/15/25 14:06
US Periph Art LOWER Ext w KARIME Urgent
Reason For Exam: Necrotic toe.
Vital Signs
Initial and Last Documented VS:
Initial Vital Signs
Temp Pulse Resp BP Pulse Ox
97.5 F 51 18 115/58 96
06/15/25 13:00 06/15/25 13:00 06/15/25 13:00 06/15/25 13:00 06/15/25 13:00
Last Documented Vital Signs
Temp Pulse Resp BP Pulse Ox
97.5 F 51 18 115/58 96
06/15/25 13:00 06/15/25 13:00 06/15/25 13:00 06/15/25 13:00 06/15/25 16:03
<Anastasia Melchor PA-C - Last Filed: 06/15/25 18:34>
Orders/Labs/Results
Orders:
Orders
06/15/25 14:06
US Periph Art LOWER Ext w KARIME Urgent
Reason For Exam: Necrotic toe.
Vital Signs
Initial and Last Documented VS:
Initial Vital Signs
Temp Pulse Resp BP Pulse Ox
97.5 F 51 18 115/58 96
06/15/25 13:00 06/15/25 13:00 06/15/25 13:00 06/15/25 13:00 06/15/25 13:00
Last Documented Vital Signs
Temp Pulse Resp BP Pulse Ox
97.5 F 51 18 115/58 96
06/15/25 13:00 06/15/25 13:00 06/15/25 13:00 06/15/25 13:00 06/15/25 16:03
<Ean Mcadams DO - Last Filed: 06/15/25 16:07>
*Pulse Oximetry
SaO2: 96
<Anastasia Melchor PA-C - Last Filed: 06/15/25 18:34>
*Pulse Oximetry
Patient hypoxic: no
*Critical Care Note
Total Time (30-74mins, 75-104mins- exclusive of procedures): Not Applicable
<Anastasia Melchor PA-C - Last Filed: 06/15/25 18:34>
Update Note
Update Note:
30 yo female with PMH of catastrophic anti-phospholipid syndrome resulting in cardiomyopathy and CVAs presents with peeling of the skin of the toes of her feet as well as a dark spot to the distal aspect of the left third toes which she reports is
improving. Pt denies pain, fevers, chills. On arrival, VSS, afebrile. On exam, pt is well-appearing and in NAD, there is desquamation of the skin of the toes of the feet bilaterally, along with a small superficial darkened area to the distal
aspect of the left third digit, which is able to be partially removed with underlying healthy appearing skin, patient has 2+ DP pulses. Patient seen and evaluated by myself as well as ED attending. Will await results of arterial lower extremity
ultrasound and discuss case with vascular surgery.
US demonstrates small vessel disease but is otherwise normal. Case discussed with on-call vascular surgeon. At this time, we believe that the small area of darkened skin to the left toe is secondary to microclot which is now resolving, no evidence
of limb threatening acute ischemia or infection. Patient is safe for discharge to home with outpatient vascular surgery follow-up, instructions on supportive care measures, along with return precautions. Pt and her grandmother expressed
understanding of the plan and agreed.
ED Attending Note
<Ean Mcadams, DO - Last Filed: 06/15/25 16:07>
ED Attending Note
Patient seen and examined by attending physician: Yes
I performed the substantive portion of visit, reviewed & personally made and approve the management plan that is documented in note by myself or OUMAR.: Yes
ED Attending Note:
I have seen and evaluated the patient with a [id number] encounter. I have spoken to the advance practicer provider and involved in the medical history, the physical exam, medical decision making.
Evaluation and management service: agree unless noted differently below.
Results interpretation: agree unless noted differently below.
Focused HPI: 30-year-old female presenting for evaluation of discoloration to her left middle toe. Patient was recently diagnosed with 'catastrophic antiphospholipid syndrome' per patient and was placed on blood thinners due to significant clotting
issues. Patient has since followed up with [facility] for congestive heart failure issues as well. Patient was concerned because the skin of her toes are peeling now
Physical exam: Sitting in bed comfortably. Left DP pulse +2. Decreased cap refill to all toes. Bruising discoloration noted to the tip of the left third toe medial aspect.
Medical Decision Making: Discussed with patient this is likely related to micro clots from her recent diagnosis. will obtain ABIs and discussed case with vascular surgery. Significant clotting noted on ultrasound, anticipate discharge with
outpatient follow-up which also includes podiatry as well.
-
Portions of this chart may have been created with voice recognition software.� Occasional wrong word or��sound alike� substitutions may have occurred due to the inherent limitations of voice recognition software.
Discharge Plan
Departure
Patient Disposition: Home (Routine Discharge)
Date of Disposition: 06/15/25
Time of Disposition: 16:31
Patient with high blood pressure during this ER visit?: No
Condition: Good
Covid-19: Not Applicable
Discharge Problem:
Peripheral vascular disease
Instructions: Peripheral Vascular (Arterial) Disease (DC)
Prescriptions:
No Action
albuterol sulfate 90 mcg/actuation Hfa Aerosol Inhaler
2 puff INHALATION R Q6HPRN PRN (Reason: sob)
Referrals:
Azam Paredes MD [Active, Vascular Surgery] - Follow up in 5-7 days
UNKNOWN - PT DOES,NOT KNOW [Family Provider]
Activity Restrictions/Additional Instructions:
You were seen in the emergency department for peeling of the skin of your right foot as well as a dark spot on your left third toe. While you were in the emergency department, you had an ultrasound which demonstrated blood flow to the legs and
feet. We feel it is safe for you to be discharged to home. You may benefit from warm soaks. Please follow up with vascular surgery for further evaluation. Please return to the emergency department for increasing pain, worsening discoloration,
fever greater than 100.4F, or for any other worsening or concerning symptoms.
Interventions
Interventions:
*Risk Screen - Suicide Last Done: 06/15/25 13:09
*General Assessment Last Done: 06/15/25 16:00
*ED- Fall Risk Assessment Last Done: 06/15/25 16:00
*ED COVID-19 Vaccine History Last Done: 06/15/25 16:00
*ED Influenza Vaccine History Last Done: 06/15/25 16:00
*Nursing Disposition Last Done: 06/15/25 16:58
ED- Cardiac Assessment Last Done: 06/15/25 16:00
ED- Pulmonary Assessment Last Done: 06/15/25 15:06
ED-Peripheral Vascular Assessment Last Done: 06/15/25 16:00
ED-Skin Assessment Last Done: 06/15/25 16:00
Discharge Date and Time
Discharge Date/Time: 06/15/25 16:59
Print Language: HAITIAN
== END 2025-06-15 16:59 | disposition home or self-care (01) ==
LOC: EMR 12:56
PROVIDERS: EMERGENCY PHYSICIAN Student in an Organized Health Care Education/Training Program
DX: I73.9 Peripheral vascular disease, unspecified (principal); I42.0 Dilated cardiomyopathy; F84.0 Autistic disorder; Z86.73 Personal history of transient ischemic attack (TIA), and cerebral infarction without residual deficits
CPT/HCPCS: 99284; 93922; 93925

== ENCOUNTER 2025-06-21 09:38 | Inpatient (IN) | payer MEDICAID, SELFPAY ==
[2025-06-20 10:50] VITALS: BMI 45.0
[2025-06-20 10:56] VITALS: BP 153/80
--- NOTE | 2025-06-20 12:21 | ED.GENMED ---
History of Present Illness
General
Chief Complaint: Swelling
Time Seen by Provider: 06/20/25 12:00
History of Present Illness
History of Present Illness:
30-year-old female with history of catastrophic antiphospholipid syndrome currently on warfarin, heart failure with reduced ejection fraction, and autism spectrum disorder presents to the emergency department with her father for evaluation of facial
swelling and fatigue that has been ongoing for the past several days. She has also gained weight unintentionally over the past several weeks. She was noted to have a subtherapeutic INR most recently at 1.3 which creates concern from her father for
recurrent blood clots. Apparently when she was diagnosed with the CAPS she had extensive thrombotic events affecting the lungs, limbs, and brain. She also reports intermittent pleuritic chest pain for the past several weeks. Currently denies any
active chest pain or dyspnea. No recent fevers or chills.
On review of records the patient's diagnosis of catastrophic antiphospholipid syndrome is new as of April of this year. She presented with acute decompensated CHF and was ultimately transferred to the emergency [place] due to complexity of
the clinical presentation. She was treated with pulse dose steroids, IVIG, and started on Coumadin at that time. She was found during hospitalization to have a dilated cardiomyopathy with an EF of 24%, multifocal scattered infarcts on brain MRI,
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
Past History
Past History
ED Past Medical History: CVA (Bihemispheric April 2025) and Other (Autism spectrum disorder, cardiomyopathy 2024)
ED Past Surgical History: None
Social History
Tobacco: Non-smoker
Alcohol: None
Drug: None
Living: with family
Employment: Employed
Family History
Family History: Other (Reviewed and noncontributory)
Review of Systems
Review of Systems
Allergies reviewed?: Yes
All Other Systems: ROS reviewed and negative except as documented in HPI and ROS
Phy Exam
Physical Exam
Physical Exam:
GEN: Well appearing, NAD, WDWN
Eyes: PERRLA, EOMs intact, no scleral icterus
HENT: NCAT, oral mucosa moist, unable to assess for JVD due to obesity
Lungs: CTAB, no wheezes, rales, rhonchi, normal chest wall excursion
Cardiac: RRR, no M/R/G, no peripheral edema. Radial pulses 2+ bilat
Abdomen: S, NT, ND, NABS, no masses or hepatosplenomegaly
Neuro: AO x 3, no focal deficits to BUE/BLE, normal sensation throughout
MSK: No gross deformity or ecchymosis. No edema. No digital clubbing
Skin: No rashes, petechiae. Normal color, no pallor or jaundice.
Psych: Calm, cooperative, proper hygiene
Course
Orders/Labs/Results
Orders:
Orders
06/20/25 12:20
Electrocardiogram (*1) Urgent
Reason for Study: Chest Pain
EKG- Treatment ONCE
06/20/25 12:28
Complete Blood Count/With Diff Urgent
Comprehensive Metabolic Panel Urgent
D-Dimer Urgent
Free T4 Urgent
HCG, Serum Qualitative Screen Urgent
Comment: ADD ON
NT-proBNP Urgent
Prothrombin Time Urgent
Comment: ADD ON
TSH Reflex To Free T4 Urgent
Troponin I Urgent
06/20/25 12:57
Add On- LAB Urgent
Tests Added?: PT INR
06/20/25 13:14
CT Pe/abd/pel W Urgent
Comment:
Reason For Exam: chest pain, subtherapeutic INR
06/20/25 13:29
Add On- LAB Urgent
Tests Added?: HCG qual
06/20/25 15:08
Enoxaparin Sodium [Lovenox] 100 mg SC NOW STA
Prednisone [Deltasone] 30 mg PO NOW STA
06/20/25 15:31
Urinalysis Reflex To Culture Urgent
Date Specimen was Collected: 06/20/25
Time Specimen was Collected: 15:30
Urine Microscopic Reflex Cult Urgent
06/20/25 16:15
Admit/Transfer Patient As Directed
Co-Sign Provider:
Level of Care: Observation services
Assign to:: Medical/Surgical
Physician / Group: isis hughes
Diagnosis: Catastrophic antiphospholipid syndrome
PRN Pain Medication Management As Directed
May give lesser potent ordered pain med per pt: Yes
preference::
Protocol:: Medication orders for pain may be administered in a
manner that supports deferring to patient preference
when the pt is:
- Requesting an ordered lesser potent pain medication.
Least to most potent pain medications are defined
as: acetaminophen < NSAID < tramadol < opioids
(morphine, oxycodone, hydromorphone).
- Requesting a lesser dose of the same medication IF
ORDERED.
- Requesting a less intrusive route of administration
if both routes are prescribed by the provider (PO <
IV).
06/20/25 16:19
Code Status As Directed
Resuscitation Status: Full Code
06/20/25 18:00
Warfarin [Coumadin] 5 mg PO ONCE@1800 ONE
Abnormal Lab Results
06/20/25 06/20/25
12:28 15:31
RBC 3.00 L 10^6/uL
(4.20-5.40)
Hgb 8.8 L g/dL
(12.0-16.0)
Hct 27.1 L %
(37.0-47.0)
MCHC 32.5 L g/dL
(33.0-37.0)
RDW 22.5 H %
(11.5-14.5)
Abs Immat Gran (auto) 0.1 H 10^3/uL
(0-0.05)
Immature Gran % 1.2 H %
(0-0.5)
PT 15.4 H Sec
(11.4-14.6)
D-Dimer 0.55 H ug/mlFEU
(0.00-0.50)
BUN 27 H mg/dl
(7-17)
Creatinine 1.3 H mg/dL
(0.6-1.0)
Total Protein 6.1 L g/dl
(6.3-8.2)
TSH (Reflex) 10.10 H uIU/ml
(0.47-4.68)
Urine Bacteria (Reflex) Few A
(Negative)
Urine Albumin (Reflex) 1+ A
(Neg - Trace)
06/20/25 12:28
06/20/25 12:28
Vital Signs
Initial and Last Documented VS:
Initial Vital Signs
Temp Pulse Resp BP Pulse Ox
98.3 F 74 18 153/80 98
06/20/25 10:56 06/20/25 10:56 06/20/25 10:56 06/20/25 10:56 06/20/25 10:56
Last Documented Vital Signs
Temp Pulse Resp BP Pulse Ox
98.3 F 71 16 153/80 98
06/20/25 10:56 06/20/25 12:00 06/20/25 12:00 06/20/25 10:56 06/20/25 12:40
MDM/Problems Addressed
MDM/Problems Addressed:
Complex situation given the patient's recent diagnosis of catastrophic antiphospholipid syndrome. At this time workup for new clotting phenomenon appears to be unremarkable although it is notable that the patient has worsening livedo reticularis
that may suggest some degree of microvascular ischemia. Her INR has been subtherapeutic for some time despite up titration of home warfarin, given her severe manifestations of disease within the past 2 months I feel it is prudent to address this
patient subtherapeutic INR and thus will recommend admission to the hospital for a Lovenox bridge as opposed to discharging home on oral therapy. Interestingly her TSH is elevated which is surprising in the setting of long-term prednisone use as
this would be expected to suppress her TSH. Lastly the patient will require refill of her prednisone taper as there is a prescription lapse at time of discharge from [place] and she will require approximately 5 further weeks of therapy
*Pulse Oximetry
SaO2: 98
Oxygen Mode of Delivery: Room air
Patient hypoxic: no
*Critical Care Note
Total Time (30-74mins, 75-104mins- exclusive of procedures): Not Applicable
Data Reviewed
Review of Other/Old Records Reveals: Records (Extensive review of prior hospitalization as well as [place] hospitalization records in addition to anticoagulation clinic records)
Update Note
Update Note:
Patient was supposed to be on a lengthy prednisone taper however completed her last dosage yesterday. It appears at time of discharge from [place] she was only able to be prescribed the first 30 days however per documentation on her pen chart it
appears she should be on a slow taper from 30 mg through 5 mg until July 27. Will administer 30 mg oral dosage here. Will admit for bridging to more appropriate INR given her high risk coagulopathy
ED Attending Note
-
Portions of this chart may have been created with voice recognition software.� Occasional wrong word or��sound alike� substitutions may have occurred due to the inherent limitations of voice recognition software.
Discharge Plan
Departure
Patient Disposition: Admit
Date of Disposition: 06/20/25
Time of Disposition: 15:12
Admit to: Med/Surg
Presentation/result/management discussed w/ accepting MD/DO: Hospitalist
Discharge Problem:
Subtherapeutic international normalized ratio (INR), CAPS (catastrophic antiphospholipid syndrome)
Interventions
Interventions:
*Risk Screen - Suicide Last Done: 06/20/25 10:59
*General Assessment Last Done: 06/20/25 12:40
*Neglect/Abuse Screening Last Done: 06/20/25 12:40
*ED- Fall Risk Assessment Last Done: 06/20/25 12:40
ED- Cardiac Assessment Last Done: 06/20/25 12:40
ED- Pulmonary Assessment Last Done: 06/20/25 12:40
ED-Skin Assessment Last Done: 06/20/25 12:40
[2025-06-20 12:58] LABS: Hematocrit 27.1 % (37.0-47.0); Hemoglobin 8.8 g/dL (12.0-16.0); Mean Corp Hgb Conc. 32.5 g/dL (33.0-37.0); Mean Corpuscular Volume 90.3 fL (81.0-99.0); Nucleated Red Blood Cells % 0 %; Platelet Count 140 10^3/uL (130-400); Red Cell Dist. Width 22.5 % (11.5-14.5)
[2025-06-20 13:05] LABS: D-Dimer 0.55 ug/mlFEU (0.00-0.50)
[2025-06-20 13:08] LABS: INR 1.17; PT 15.4 Sec (11.4-14.6)
[2025-06-20 13:14] LABS: ALT (SGPT) 29 U/L (0-35); AST (SGOT) 18 U/L (14-36); Albumin 3.7 g/dl (3.5-5.0); Alkaline Phosphatase 44 U/L (38-126); Blood Urea Nitrogen 27 mg/dl (7-17); Calcium 9.4 mg/dl (8.4-10.2); Carbon Dioxide 25 mmol/L (22-30); Chloride 107 mmol/L (98-107); Estimated Creatinine Clearance 82 ml/min; Glucose 78 mg/dl (70-99); Potassium 4.3 mmol/L (3.5-5.1); Sodium 136 mmol/L (135-145); Total Protein 6.1 g/dl (6.3-8.2); eGFR 57.44
[2025-06-20 13:21] LABS: Anisocytosis 1+; Hypochromasia 1+; Normal RBC Morphology No; Ovalocytes 1+; Polychromasia 1+
[2025-06-20 13:24] LABS: Troponin I < 0.012 ng/ml
[2025-06-20 13:45] LABS: HCG, Serum Qualitative Screen Negative
[2025-06-20] MEDS: LOVENOX 100 MG SC (15:28)
[2025-06-20] MEDS: DELTASONE 30 MG PO (15:28)
[2025-06-20 15:43] LABS: Urine Character Clear (Clear)
--- NOTE | 2025-06-20 15:51 | HPS.HSE ---
Family Physician
-
Family Physician: YAJAIRA Guzman
Chief Complaint
-
Facial swelling, low INR
History of Present Illness
30-year-old female with a past medical history of recently diagnosed catastrophic antiphospholipid syndrome, stroke, heart failure with a reduced ejection fraction, dilated cardiomyopathy, hypertension, gastroesophageal reflux disease, and iron
deficiency anemia was brought in by her father for facial swelling and low INR. Patient was treated at [facility] and transferred to [place] on 05/02/2025, where she was diagnosed with catastrophic antiphospholipid syndrome. She was
discharged home on Coumadin, initially 5 mg daily. Her INR was supratherapeutic, her Coumadin dose was reduced. Today her INR is subtherapeutic at 1.17. Patient and father reports unintentional weight gain, hair loss. TSH was noted to be high at
10.10, free T4 normal at 0.97. She denies lightheadedness, denies dizziness. No fever, no vomiting.
Medical History
Past Medical History
Past Medical History: Reports Other
Additional Past Medical History:
Catastrophic antiphospholipid syndrome
Dilated cardiomyopathy
Heart failure with reduced ejection fraction
Essential hypertension
Gastroesophageal reflux disease
Iron deficiency anemia
Pulmonary infarcts
Splenic artery thrombosis
Stroke
Past Surgical History: Reports Other
Social History
Tobacco: Non-smoker
Alcohol: None
Drug: None
Family History
Family History: Not pertinent
Allergies / Home Medications
Allergies reflects when Allergies were last updated in [facility].
Home Medications with original date entered in [facility]
Allergy/Medication List:
Allergies
Allergy/AdvReac Type Severity Reaction Status Date / Time
No Known Allergies Allergy Verified 06/20/25 11:34
Home Medications Table - record
�Medication �Instructions �Recorded �Confirmed
ferrous sulfate 325 mg (65 mg 325 mg PO DAILY Supplement 06/20/25 06/20/25
iron) tablet
furosemide 80 mg tablet (Lasix) 80 mg PO DAILY Fluid 06/20/25 06/20/25
Retention/Swelling
lansoprazole 30 mg capsule,delayed 30 mg PO DAILY gerd 06/20/25 06/20/25
release
metoprolol succinate 25 mg 25 mg PO BID Blood Pressure 06/20/25 06/20/25
tablet,extended release 24 hr
(Toprol XL)
sulfamethoxazole 400 1 tab PO DAILY Infection 06/20/25 06/20/25
mg-trimethoprim 80 mg tablet
thiamine HCl (vitamin B1) 100 mg 100 mg PO DAILY Supplement 06/20/25 06/20/25
tablet
valsartan 40 mg tablet 40 mg PO BID Blood Pressure 06/20/25 06/20/25
warfarin 2.5 mg tablet 2.5 mg PO DIRECTED 06/20/25 06/20/25
Review of Systems
-
A 12 point ROS was completed and negative except as noted: Yes
Physical Exam
Vital Signs
Vital Signs
Temp Pulse Resp BP Pulse Ox
98.3 F 71 16 153/80 98
06/20/25 10:56 06/20/25 12:00 06/20/25 12:00 06/20/25 10:56 06/20/25 12:40
Physical Exam
General: No Apparent Distress and Morbidly Obese
HEENT: NormoCephalic, Anicteric, Moist mucous membranes and Other (Hair thinning noted, mild facial swelling noted)
Respiratory: Clear
Cardiac: S1/S2 and Regular Rhythm
GI: Soft, Non Tender, Non Distended and Normal Bowel Sounds
Musculoskeletal: No Clubbing, No Cyanosis and No Edema
Skin: Warm and Dry
Neuro: Awake, Alert and Oriented
Laboratory Results
-
06/20/25 12:28
06/20/25 12:28
Laboratory Results
PT 15.4 Sec (11.4-14.6) H 06/20/25 12:28
INR 1.17 06/20/25 12:28
Total Bilirubin 0.7 mg/dl (0.2-1.3) 06/20/25 12:28
AST 18 U/L (14-36) 06/20/25 12:28
ALT 29 U/L (0-35) 06/20/25 12:
Alkaline Phosphatase 44 U/L (38-126) 06/20/25 12:28
Troponin I < 0.012 ng/ml 06/20/25 12:28
Data Reviewed
-
Lab Data: Labs Reviewed by me
Impression/Plan
-
HPI: 30-year-old female with a past medical history of recently diagnosed catastrophic antiphospholipid syndrome, stroke, heart failure with a reduced ejection fraction, dilated cardiomyopathy, hypertension, gastroesophageal reflux disease, and iron
deficiency anemia was brought in by her father for facial swelling and low INR. Patient was treated at [facility] and transferred to [place] on 05/02/2025, where she was diagnosed with catastrophic antiphospholipid syndrome. She was
discharged home on Coumadin, initially 5 mg daily. Her INR was supratherapeutic, her Coumadin dose was reduced. Today her INR is subtherapeutic at 1.17. Patient and father reports unintentional weight gain, hair loss. TSH was noted to be high at
10.10, free T4 normal at 0.97. She denies lightheadedness, denies dizziness. No fever, no vomiting.
#Catastrophic antiphospholipid syndrome
Give Coumadin 5 mg tonight, 4 mg daily tomorrow night
Discussed with pharmacy, will bridge with Lovenox 100 mg every 12 hours
Check daily INRs, adjust Coumadin as needed
#Subclinical hypothyroidism
Associated symptoms include hair loss, recent weight gain, facial swelling
TSH 10.10, free T4 normal
Start levothyroxine 112 mcg daily
#Recent stroke
#Recent pulmonary infarcts
Due to the above, anticoagulation as above
#Heart failure with a reduced ejection fraction
Continue Lasix 80 mg daily, Toprol XL
#GERD
Continue PPI
#Iron deficiency anemia
Continue ferrous sulfate
DVT prophylaxis�therapeutic Lovenox to bridge to Coumadin
Full code
Updated father at bedside 06/20
Total time spent to see the patient on the floor, examine the patient, review data and lab results, discuss treatment plan with patient, nursing staff around 77 minutes.
[2025-06-20 15:52] LABS: Urine Red Blood Cell 0-2 /HPF (0-2)
[2025-06-20] MEDS: COUMADIN 5 MG PO (18:07)
[2025-06-20] MEDS: FLUSH (NSS) 1 FLUSH IV (18:10)
[2025-06-20 18:40] VITALS: BP 108/64
[2025-06-20 19:47] VITALS: BP 119/64; BMI 43.9
[2025-06-20] MEDS: TOPROL XL 25 MG PO (20:41)
[2025-06-20] MEDS: DIOVAN 40 MG PO (20:41)
[2025-06-20 23:02] VITALS: BP 120/69
[2025-06-21] MEDS: LOVENOX 100 MG SC (02:33)
[2025-06-21] MEDS: SYNTHROID 112 MCG PO (05:23)
[2025-06-21 06:00] VITALS: BMI 43.4
[2025-06-21 07:48] VITALS: BP 99/51
[2025-06-21 08:23] LABS: Hematocrit 26.5 % (37.0-47.0); Hemoglobin 8.5 g/dL (12.0-16.0); INR 1.43; Mean Corp Hgb Conc. 32.1 g/dL (33.0-37.0); Mean Corpuscular Volume 90.4 fL (81.0-99.0); PT 18.0 Sec (11.4-14.6); Platelet Count 146 10^3/uL (130-400); Red Cell Dist. Width 22.5 % (11.5-14.5)
[2025-06-21] MEDS: PROTONIX 40 MG PO (09:01)
[2025-06-21] MEDS: TOPROL XL 25 MG PO ×2 (09:01→20:15)
[2025-06-21] MEDS: BACTRIM 400 MG/80 MG 1 TABLET PO (09:02)
[2025-06-21] MEDS: VITAMIN B1 100 MG PO (09:02)
[2025-06-21] MEDS: LASIX 80 MG PO (09:02)
[2025-06-21] MEDS: DIOVAN 40 MG PO ×2 (09:03→20:15)
[2025-06-21] MEDS: FEOSOL 325 MG PO (09:03)
[2025-06-21 09:28] LABS: Blood Urea Nitrogen 19 mg/dl (7-17); Calcium 9.2 mg/dl (8.4-10.2); Carbon Dioxide 21 mmol/L (22-30); Chloride 107 mmol/L (98-107); Estimated Creatinine Clearance 95 ml/min; Glucose 75 mg/dl (70-99); Sodium 133 mmol/L (135-145); eGFR > 60.00
--- NOTE | 2025-06-21 10:37 | CON.ID ---
Consultation
-
Date/Time Consultation Requested: June 21, 2025 1003
Date/Time Consultation Performed: June 21, 2025 1040
Requesting Provider: Dr. Laith Maldonado
Performing Provider: Dr. Jillian Simental
Reason for Consultation: Possible pneumonia, recent Hantavirus IgM positive
Chief Complaint / Past History
Chief Complaint
Facial swelling and weight gain
History of Present Illness
30-year-old female with history of Asperger's, asthma, who was recently hospitalized April 26 with worsening shortness of breath and bilateral lower extremity edema. Patient found to have dilated cardiomyopathy, severe MR, macular papular rash
on extremities , ROGELIO, elevated antiphospholipid antibodies, acute embolic CVA. ROCÍO no thrombus. Pt was transferred to [facility] 05/02/25. She was diagnosed with catastrophic anti-phospholipid syndrome at [facility]. Pt also found to have PE, splenic artery
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 05/19, she was discharged on Coumadin, prednisone slow taper, and prophylactic Bactrim SS 1 tab daily.
She presented to ED 06/11 c/o facial edema, unintentional weight gain, as well as subtherapeutic INR. She reports following fluid restriction. She denies fevers chills or sweats. No cough. No shortness of breath. No chest pain. She reports
since being in the hospital, the edema has improved. During last hospitalization in April 26, patient reported mice infestation at her grandparents home where she lived for 10 years. Hospitalist sent off hantavirus serology and eventually the
IgM resulted positive which prompted infectious disease consult this admission. Patient reports she now lives with her father instead of with her grandparents. When she was with her grandparents, she reports mice living inside the [place] and would
come out occasionally. There were few mice droppings in the house.
Past History
Additional Past Medical History:
Catastrophic antiphospholipid syndrome (cardiomyopathy, PE, IRONING PLEATER infarct, splenic artery thrombosis, small vessel thrombi) on Coumadin
Asperger's
Asthma
Class III obesity BMI 43
Severe JON
Allergy History:
No Known Allergies Allergy (Verified 06/20/25 11:34)
Medications Reviewed: Yes
Current Antibiotics:
Bactrim SS 1 daily ppx
Social History
Tobacco: Non-Smoker
Alcohol: None
Drug: None
Personal: Single
Living: With Family (father and sisters)
Employment: Employed ([employer])
Family History
Family History: Not Pertinent
Review of Systems
Review of Systems
General: Negative Fever, Chills or Change in Appetite
HEENT: Negative Sinus Problems or Headache
Cardiovascular: Negative Chest Pain or Dyspnea
Respiratory: Negative Dyspnea or Cough
Gasteroenterology: Negative Nausea, Vomiting or Diarrhea
Genital / Urological: Negative Dysuria or Flank Pain
Endocrine: Negative Weakness
All systems: All other systems were reviewed and were negative
Vital Signs
Temp Pulse Resp BP Pulse Ox
97.9 F 103 18 99/51 99
06/21/25 07:48 06/21/25 07:48 06/21/25 07:48 06/21/25 07:48 06/21/25 07:48
Physical Exam
Physical Exam
Constitutional: No Acute Distress and Comfortable
Eyes: No Conjunctival Hemorrhage and Sclera Anicteric
Cardiovascular: Regular Rate and S1/S2
Pulmonary: Rales (mild bibase)
Gastrointestinal: Soft, Non Tender, Non Distended, Normal Bowel Sounds and Decreased Bowel Sounds
Genito-Urinary: Negative CVA Tenderness
Extremities: Edema
Wound: Other (eschar tip of left 3rd toe)
Neurological: AO x 3
Lab / Diagnostic Study Results
06/21/25 06:58
06/21/25 06:58
Abs Immat Gran (auto) 0.1 10^3/uL (0-0.05) H 06/20/25 12:28
Absolute Neuts (auto) 2.9 10^3/uL (1.4-6.5) 06/20/25 12:28
Absolute Lymphs (auto) 1.4 10^3/uL (1.2-3.4) 06/20/25 12:28
Absolute Monos (auto) 0.4 10^3/uL (0.1-0.6) 06/20/25 12:28
Absolute Basos (auto) 0.0 10^3/uL (0-0.2) 06/20/25 12:28
Immature Gran % 1.2 % (0-0.5) H 06/20/25 12:28
Neutrophils % 59.7 % (42.2-75.2) 06/20/25 12:28
Lymphocytes % 29.8 % (20.5-51.1) 06/20/25 12:28
Monocytes % 8.5 % (1.7-9.3) 06/20/25 12:28
Eosinophils % 0.4 % (0-6) 06/20/25 12:28
Basophils % 0.4 % (0-2) 06/20/25 12:28
PT 18.0 Sec (11.4-14.6) H 06/21/25 06:58
INR 1.43 06/21/25 06:58
Ur Squamous Epith Cells 11-15 /LPF (Few) 06/20/25 15:31
Microbiology Results
06/20/25 CT a/p: Evaluation for pulmonary embolism is limited by moderate respiratory motion artifact. No evidence for central pulmonary embolism. In the inferior and lateral right lower lobe, there is a wedge-shaped region of parenchymal opacity.
Morphologic appearance raises suspicion for a region of pulmonary infarction. Main differential consideration of pneumonia. Advise continued clinical follow-up and imaging follow-up as warranted. Linear and groundglass opacities within the left
lower lobe, with main differential considerations of atelectasis and/or groundglass pneumonia. No significant pleural effusion bilaterally. Cholelithiasis. No CT findings to suggest acute cholecystitis with no evidence for biliary ductal dilation.
Mild splenomegaly. 1 cm low-density lesion in the anterior spleen, main differential considerations of cyst and/or hemangioma. No further imaging follow-up for this lesion is recommended.
Assessment / Plan
# Recent Catastrophic antiphospholipid syndrome now on Coumadin, prednisone taper, Bactrim prophylaxis
# Hantavirus IgM positive (04/26/25)
-Suspect false positive Hantavirus IgM due to cross-reactivity with auto-antibodies
- Clinical presentation did not fit hantavirus pulmonary syndrome: no fever, hemo-concentration (plasma leakage), non-cardiogenic pulm edema, etc.
-Pt currently without respiratory symptoms/complaints. No need to treat the nonspecific CT chest findings with antibiotic.
- Continue prophylactic Bactrim while on prolong high dose steroid.
ID will sign off.
Care Review
Plan reviewed with: Physician (Dr. Maldonado)
[2025-06-21 10:49] LABS: Magnesium 2.3 mg/dl (1.6-2.3)
--- NOTE | 2025-06-21 12:30 | CON.ONC ---
Consultation
-
Date Consultation Requested: 06/21/25
Date Consultation Performed: 06/21/25
Requesting Provider: Dr. Laith Maldonado
Performing Provider: Dr. Arian Laurent
Reason for Consultation: APLS on warfarin
Impression
Impression
a/w facial swelling
catastrophic antiphospholipid syndrome
hx supratherapeutic anti xa on enoxaparin 1mg/kg bid, possibly in the setting of decreased clearance with ROGELIO
subtherapeutic INR
livedo reticularis tx with IVIG x 5 days (05/10-05/14) followed by a steroid taper, currently on prednisone 30mg daily
CVA
JESSICA
GERD
HFrEF, dilated cardiomyopathy
Plan
Plan
agree with enoxaparin bridge to warfarin with goal INR 2-3
will need to utilize anti Xa level for enoxaparin dosing, appreciate pharmacy assistance and recommendations
ideal to repeat APLS panel in Jul 2025
repeat iron studies
steroid taper per rheumatology recommendations
f/u ID consult for abnormal CT with reported IgM hantavirus
Patient History
History of Present Illness
30yo F hospitalized 04/26-05/02 and diagnosed with HFrEF and CVA then transferred to [facility] and found to have catastrophic APLS for which she was discharged home on warfarin readmitted for facial swelling and subtherapeutic INR 1.17. She had
supratherapeutic INR for which her warfarin dose was lowered and now has a subtherapeutic INR. She dose have a history of menorrhagia which was thought to be the source of her iron deficient anemia in April 2025 andd completed Ferrlecit x 5
doses. She has continued on oral iron. Her initial evaluation 06/20/2025 with CTA chest, CT ab/pelvis showed no evidence of central pulmonary emboli, however wedge shaped region of parenchymal opacity rases suspicion for pulmonary infarction in the
RLL, GGO in the LLL, mild splenomegaly. She has been admitted, started on enoxaparin bridge back to warfarin. Her labs today show WBC 4.6, Hgb 8.5, platelet count 146,000, INR 1.43. While she was hospitalized at [facility], she was reportedly on 1mg/kg BID
of enoxaparin with supratherapeutic anit Xa level requiring a dose adjustment of her enoxaparin to 40mg BID bridge to warfarin. Since admission, she has received enoxaparin 1mg/kg bid x 2 doses and warfarin 5mg last evening. Her anti Xa level is
pending. Of note she was also evaluated by rheumatology during her [facility] hospitalization due to livedo reticularis for which she was treated with IVIG x 5 days (05/10-05/14) followed by a steroid taper, currently on prednisone 30mg daily. The plan was
for rheumatology to continue to taper the steroids upon discharge.
Afebrile, no hypoxia or hypotension.
Laboratory Tests
04/30/25
16:15
Beta-2-GPI IgG Ab 31 H
Beta-2-GPI IgA Ab 13
Beta-2-GPI IgM Ab <10
Anti-Cardiolipin IgG Ab 46 H
Anti-Cardiolipin IgA Ab 31 H
Anti-Cardiolipin IgM Ab 18 H
Lupus anticoagulant detected.
Past-Medical/Surgical History
PMH Catastrophic antiphospholipid syndrome, Dilated cardiomyopathy, HFrEF, HTN, GERD, JESSICA, menorrhagia, CVA, renal insufficency
PSH denies
Social Lives with father and siblings, unemployed, never smoker, deneis etoh or recreational drugs
Family does not know of any family thrombosis
Patient Medication
�Medication �Instructions �Recorded �Confirmed �Last Taken �Type
ferrous sulfate 325 mg (65 mg 325 mg PO DAILY Supplement 06/20/25 06/20/25 06/20/25 History
iron) tablet
furosemide 80 mg tablet (Lasix) 80 mg PO DAILY Fluid 06/20/25 06/20/25 06/20/25 History
Retention/Swelling
lansoprazole 30 mg capsule,delayed 30 mg PO DAILY gerd 06/20/25 06/20/25 06/20/25 History
release
metoprolol succinate 25 mg 25 mg PO BID Blood Pressure 06/20/25 06/20/25 06/20/25 History
tablet,extended release 24 hr
(Toprol XL)
sulfamethoxazole 400 1 tab PO DAILY Infection 06/20/25 06/20/25 06/20/25 History
mg-trimethoprim 80 mg tablet
thiamine HCl (vitamin B1) 100 mg 100 mg PO DAILY Supplement 06/20/25 06/20/25 06/20/25 History
tablet
valsartan 40 mg tablet 40 mg PO BID Blood Pressure 06/20/25 06/20/25 06/20/25 History
warfarin 2.5 mg tablet 2.5 mg PO DIRECTED 06/20/25 06/20/25 06/19/25 History
Active Medications
Generic Name Dose Route Start Last Admin
Trade Name Freq PRN Reason Stop Dose Admin
Acetaminophen 650 mg 06/20/25 19:42
Acetaminophen 325 Mg Tablet PO 07/18/25 19:41
Q4HPRN PRN
mild pain/PRO/temp> 100.4F
Bisacodyl 10 mg 06/20/25 19:42
Bisacodyl 10 Mg Rectal Suppository RECTAL 07/18/25 19:41
[id number] PRN
constipation
Enoxaparin Sodium 100 mg 06/21/25 02:00 06/21/25 02:33
Enoxaparin Sodium 100 Mg/Ml Syringe SC 07/19/25 01:59 100 mg
Q12 RICKI Administration
Ferrous Sulfate 325 mg 06/21/25 08:00 06/21/25 09:03
Ferrous Sulfate 325 Mg Tablet PO 07/19/25 07:59 325 mg
DAILY RICKI Administration
Furosemide 80 mg 06/21/25 08:00 06/21/25 09:02
Furosemide 80 Mg Tablet PO 07/19/25 07:59 80 mg
DAILY RICKI Administration
Levothyroxine Sodium 50 mcg 06/22/25 06:00
Levothyroxine 50 Mcg Tablet PO 07/20/25 05:59
DAILY @ 0600 RICKI
Metoprolol Succinate 25 mg 06/20/25 20:00 06/21/25 09:01
Metoprolol 25 Mg Extended Release Tablet PO 07/18/25 19:59 25 mg
BID RICKI Administration
Ondansetron HCl 4 mg 06/20/25 19:42
Ondansetron 4 Mg/2 Ml Vial IV 07/18/25 19:41
Q6HPRN PRN
NAUSEA/VOMITING
Pantoprazole Sodium 40 mg 06/21/25 08:00 06/21/25 09:01
Pantoprazole 40 Mg Delayed Release Tablet PO 07/19/25 07:59 40 mg
DAILY RICIK Administration
Polyethylene Glycol 17 grams 06/20/25 19:42
Polyethylene Glycol Powder 17 Grams Packet PO 07/18/25 19:41
DAILYPRN PRN
constipation
Sodium Chloride 0 flush 06/20/25 17:00 06/20/25 18:10
Sodium Chloride 0.9% (Flush) Syringe IV 07/18/25 16:59 1 flush
PER PROTOCOL RICKI Administration
Thiamine HCl 100 mg 06/21/25 08:00 06/21/25 09:02
Thiamine 100 Mg Tablet PO 07/19/25 07:59 100 mg
DAILY RICKI Administration
Trimethoprim/Sulfamethoxazole 1 tablet 06/21/25 08:00 06/21/25 09:02
Sulfamethoxazole (400 Mg)/Trimethoprim (80 Mg) Tablet PO 1 tablet
DAILY RICKI Administration
Valsartan 40 mg 06/20/25 20:00 06/21/25 09:03
Valsartan 40 Mg Tablet PO 07/18/25 19:59 40 mg
BID RICKI Administration
Warfarin Sodium 4 mg 06/21/25 18:00
Warfarin 4 Mg Tablet PO 06/26/25 17:59
QPM RICKI
Review of Systems
-
poor historian
Physical Exam
-
General: No Apparent Distress
HEENT: Negative Jaundice
Pulmonary: Other (unlabored)
GI: Soft
Extremities: Pulses Present
Skin: Warm and Other (livedo reticularis )
Psych: Calm
Labs
Lab Results
WBC 4.6 10^3/uL (4.8-10.8) L 06/21/25 06:58
RBC 2.93 10^6/uL (4.20-5.40) L 06/21/25 06:58
Hgb 8.5 g/dL (12.0-16.0) L 06/21/25 06:58
Hct 26.5 % (37.0-47.0) L 06/21/25 06:58
MCV 90.4 fL (81.0-99.0) 06/21/25 06:58
MCH 29.0 pg (27.0-31.0) 06/21/25 06:58
MCHC 32.1 g/dL (33.0-37.0) L 06/21/25 06:58
RDW 22.5 % (11.5-14.5) H 06/21/25 06:58
Plt Count 146 10^3/uL (130-400) 06/21/25 06:58
MPV 9.4 fL (7.4-10.4) 06/21/25 06:58
Abs Immat Gran (auto) 0.1 10^3/uL (0-0.05) H 06/20/25 12:28
Absolute Neuts (auto) 2.9 10^3/uL (1.4-6.5) 06/20/25 12:28
Absolute Lymphs (auto) 1.4 10^3/uL (1.2-3.4) 06/20/25 12:28
Absolute Monos (auto) 0.4 10^3/uL (0.1-0.6) 06/20/25 12:28
Absolute Eos (auto) 0.0 10^3/uL (0-0.7) 06/20/25 12:
Absolute Basos (auto) 0.0 10^3/uL (0-0.2) 06/20/25 12:28
Immature Gran % 1.2 % (0-0.5) H 06/20/25 12:
Neutrophils % 59.7 % (42.2-75.2) 06/20/25 12:
Lymphocytes % 29.8 % (20.5-51.1) 06/20/25 12:
Monocytes % 8.5 % (1.7-9.3) 06/20/25 12:
Eosinophils % 0.4 % (0-6) 06/20/25 12:28
Basophils % 0.4 % (0-2) 06/20/25 12:
Creatinine 1.1 mg/dL (0.6-1.0) H 06/21/25 06:58
Vital Signs
Vital Signs
Temp Pulse Resp BP Pulse Ox
97.9 F 103 18 99/51 99
06/21/25 07:48 06/21/25 07:48 06/21/25 07:48 06/21/25 07:48 06/21/25 07:48
--- NOTE | 2025-06-21 12:32 | PHANOTE ---
Addendum entered and electronically signed by Kayla Atkinson [facility] 06/21/25 16:40:
Per Ana Maria Saucedo ([phone])
05/09- enoxaparin 120 mg q12h x 2 days SCr 1.6, antiXa= 1.66
05/13 enoxaparin 60 mg q12
05/14 enoxaparin 50 mg q12 SCr 1.5 antiXa=1.16
05/15 enoxaparin 40 mg sc q12h
05/18 SCr 1.4; antiXa=0.67
Original Note:
Addendum entered and electronically signed by Kayla Atkinson [facility] 06/21/25 14:19:
Discussing with [facility] outpatient pharmacist Ana Maria Saucedo ,
Original Note:
Addendum entered and electronically signed by Kayla Atkinson [facility] 06/21/25 14:18:
SCr was 1.6
Original Note:
Anti Xa-level monitoring
Per [facility]'s April visit:
AntiXa = 1.66 on enoxaparin 1 mg/kg subcut q12h
AntiXa = 0.67 on enoxaparin 40 mg subcut q12
[2025-06-21 14:48] LABS: Iron 124 ug/dl (37-170)
[2025-06-21 14:58] LABS: Total Iron Binding Capacity 266 ug/dl (265-497)
[2025-06-21] MEDS: DELTASONE 30 MG PO (15:03)
--- NOTE | 2025-06-21 15:14 | W.PN.HOSP.TC ---
Today's Communication/Plan
-
Holding Lovenox
Factor 10a levels in the morning
Restart steroids
Assessment / Plan
Assessment / Plan
30-year-old female was recently diagnosed with catastrophic antiphospholipid syndrome complicated by stroke, heart failure with reduced EF, dilated cardiomyopathy. Patient was treated at [facility] and was transferred to [place] on 1924 where
she was diagnosed with catastrophic antiphospholipid syndrome. Patient was discharged on Coumadin initially 5 mg her INR was elevated therefore Coumadin was reduced. On the day of admission INR was found to be 1.1. She also had some weight gain
Per review of hematology oncology notes from [facility]., She was treated with IVIG from 05/10/2025 to 05/14/2025. Patient was also started on Bactrim 80 mg/kg on 05/12/2025
Down to taper dose of 30 mg a day till 06/22/2025, prednisone 25 mg daily from 11 1 for a week, then 20 mg daily for a week, 15 mg daily for a week 10 mg daily for a week and 5 mg daily for a week to be completed on 07/27/2025.
At [facility] patient's anti-DNA levels were 1.66 (supratherapeutic goal is 0.5-1). They dosed her with 40 mg of Lovenox subcutaneous every [address] chest abdomen pelvis-evaluation for pulmonary embolism is limited because of motion artifact. No central PE. Wedge-shaped region of parenchymal opacity suspicious for pulmonary infarction. Main differential consideration of pneumonia. Linear
and ground glass opacities within the left lower lobe with main differential considerations of atelectasis and or pneumonia. No significant pleural effusions bilaterally. Cholelithiasis without evidence of cholecystitis. Mild splenomegaly 1 cm
low-density lesion in the anterior spleen cyst or hemangioma
EKG-sinus rhythm cannot rule out anterior infarct age undetermined
Echo 04/26/2025-severely dilated LV and severely reduced systolic function. 24% EF. Global hypokinesis. Normal RV size. Low normal RV SF. Severe MR. Mild TR. PA pressure 44 mmHg.
# Subtherapeutic INR
Recent diagnosis of catastrophic antiphospholipid syndrome
Protein C level was 74% ( 84-168).-Needs repeat testing if this was done while on anticoagulation
Protein S levels were normal 83%
Daily Coumadin per INR bridge with Lovenox INR 1.4 today
Get Factor Xa level tomorrow
Reportedly levels were high with 100 mg daily dosage at [facility]. Therefore holding next dose of Lovenox and getting Tenny level in the morning
We also found out that the patient was supposed to be on steroids taper until 07/27/2025
Heme eval requested.
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 Continue steroids reportedly she also had skin biopsy at [facility]
# Acute kidney injury-secondary to organ involvement from above reportedly got better with IVIG and steroids-follow creatinine
# Anemia-likely secondary to antiphospholipid disease
Also mild iron deficiency-continue p.o. iron
# Subclinical hypothyroidism with symptoms
TSH was 10.1
Patient started on 112 mcg daily
Reduce the dose to 50 mcg with subclinical hypothyroidism and also with cardiomyopathy.
Repeat TSH in 6 weeks
# Recently diagnosed dilated cardiomyopathy with HFrEF-continue valsartan, metoprolol, Lasix Daily weights. Fluid restriction. And salt restriction. Weight to be monitored daily.
# Hantavirus IgM positive on a sample sent on 04/27/2025. ID evaluation Appreciated. Feels that this is cross-reactivity with autoantibodies and false positive.
# CVA
April 2025 -MRI showed multifocal acute scattered infarcts consistent with emboli. No evidence of arterial stenosis.
Bubble study was negative for PFO
# Obesity with a BMI of 43
# Full code
Patient is on Bactrim prophylaxis because of steroids.
Case discussed with hematology oncology
Discussed with infectious disease
Discussed with pharmacy in detail-appreciate pharmacy helping with the anticoagulation
Discussed with lab regarding Xa testing
Discussed with sister, grandmother and patient's aunt at bedside who works here in CV[facility]
Overall prognosis guarded for long-term D/W AUNT.
time spent over 60 min
Part of this note was created using voice recognition system. Occasional wrong word or��sound alike� substitutions may have inadvertently occurred due to the inherent limitations of voice recognition software. If noted kindly bring it to my
attention for correction.
Anticipated Discharge: 24 - 48 hours
Subjective/Interval History
-
Date of Service: June 21, 2025
Objective Data
-
Labs:
Laboratory Results
06/21/25
06:58
WBC 4.6 L
Hgb 8.5 L
Hct 26.5 L
Plt Count 146
PT 18.0 H
INR 1.43
Sodium 133 L
Potassium
Chloride 107
Carbon Dioxide 21 L
BUN 19 H
Creatinine 1.1 H
Glucose 75
Calcium 9.2
Vital Signs:
Vital Signs
Temp Pulse Resp BP Pulse Ox
97.9 F 103 18 99/51 99
06/21/25 07:48 06/21/25 07:48 06/21/25 07:48 06/21/25 07:48 06/21/25 07:48
I&O
06/20/25 06/21/25 06/22/25
06:59 06:59 06:59
Intake Total 480 / 480
Balance 480 / 480
[2025-06-21 15:20] VITALS: BP 115/63
[2025-06-21 15:34] LABS: Ferritin 248.0 ng/ml (6.24-137)
--- NOTE | 2025-06-21 15:46 | CM ---
CM reviewed chart, patient seen bedside, initial assessment completed.
Patient is a 30-year-old female with a past medical history of recently diagnosed catastrophic antiphospholipid syndrome, stroke, heart failure with a reduced ejection fraction, dilated cardiomyopathy, hypertension, gastroesophageal reflux disease,
and iron deficiency anemia was brought in by her father for facial swelling and low INR.
Patient reports she lives with her father and siblings in a multiple story home, three steps to enter.
Patient reports have a CPAP at home.
Patient reports VN in past, believes agency was [facility].
PCP Thien Neal, Pharmacy [facility].
Patient denies insecurities at home.
Patients father is Ha Mcadams [phone]
CM will continue to follow for all d/c planning needs.
Plan; home with family when stable
[2025-06-21] MEDS: COUMADIN 4 MG PO (18:12)
[2025-06-21 20:14] VITALS: BP 122/70
[2025-06-21 23:04] VITALS: BP 105/59
[2025-06-22 06:00] VITALS: BMI 43.2
[2025-06-22] MEDS: SYNTHROID 50 MCG PO (06:04)
[2025-06-22 07:00] VITALS: BP 124/80
[2025-06-22 07:20] LABS: Hematocrit 25.9 % (37.0-47.0); Hemoglobin 8.8 g/dL (12.0-16.0); Mean Corp Hgb Conc. 34.0 g/dL (33.0-37.0); Mean Corpuscular Volume 88.7 fL (81.0-99.0); Platelet Count 151 10^3/uL (130-400); Red Cell Dist. Width 22.3 % (11.5-14.5)
[2025-06-22 07:49] LABS: Blood Urea Nitrogen 24 mg/dl (7-17); Calcium 9.5 mg/dl (8.4-10.2); Carbon Dioxide 27 mmol/L (22-30); Chloride 103 mmol/L (98-107); Estimated Creatinine Clearance 80 ml/min; Glucose 106 mg/dl (70-99); Potassium 4.7 mmol/L (3.5-5.1); Sodium 134 mmol/L (135-145); eGFR 57.44
[2025-06-22] MEDS: DIOVAN 40 MG PO ×2 (08:06→20:59)
[2025-06-22] MEDS: VITAMIN B1 100 MG PO (08:06)
[2025-06-22] MEDS: LASIX 80 MG PO (08:07)
[2025-06-22] MEDS: BACTRIM 400 MG/80 MG 1 TABLET PO (08:07)
[2025-06-22] MEDS: FEOSOL 325 MG PO (08:09)
[2025-06-22] MEDS: PROTONIX 40 MG PO (08:09)
[2025-06-22] MEDS: TOPROL XL 25 MG PO ×2 (08:09→20:59)
[2025-06-22] MEDS: DELTASONE 30 MG PO (08:09)
[2025-06-22 08:10] LABS: Heparin Anti-Xa LMW (LMWH) 0.30 IU/mL (0.20-0.50)
[2025-06-22 08:28] LABS: INR 1.31; PT 16.6 Sec (11.4-14.6)
--- NOTE | 2025-06-22 09:03 | W.PN.ONC2 ---
Documented by User: YAJAIRA Mercado 06/22/25 12:20
Today's Communication / Plan
-
continue enoxaparin bridge to warfarin until INR >2 with goal 2-3
OP follow up with [facility] for continued management
Impression
Impression
a/w facial swelling and subtherapeutic INR
catastrophic antiphospholipid syndrome
hx supratherapeutic anti xa on enoxaparin 1mg/kg bid, possibly in the setting of decreased clearance with ROGELIO
subtherapeutic INR
livedo reticularis tx with IVIG x 5 days (05/10-05/14) followed by a steroid taper, currently on prednisone 30mg daily
CVA
JESSICA
GERD
HFrEF, dilated cardiomyopathy
Plan
Plan
agree with enoxaparin bridge to warfarin with goal INR 2-3
anti Xa level therapeutic 0.3
resume enoxaparin 100mg/kg BID -appreciate pharmacy assist in dosing
ideal to repeat APLS panel in Jul 2025
steroid taper per rheumatology recommendations, Bactrim ppx on steroids
ammenorrihic since Apr 2025
Subjective/Objective
Subjective
Denies bleeding, SOB, chest pain, or LE edema
rash continues to improve
no new complaints
Vital Signs:
Vital Signs
Temp Pulse Resp BP Pulse Ox
98 F 75 20 124/80 100
06/22/25 07:00 06/22/25 07:00 06/22/25 07:00 06/22/25 07:00 06/22/25 07:00
Lab Results:
Laboratory Data
WBC 4.2 10^3/uL (4.8-10.8) L 06/22/25 06:50
Hgb 8.8 g/dL (12.0-16.0) L 06/22/25 06:50
Plt Count 151 10^3/uL (130-400) 06/22/25 06:50
PT 16.6 Sec (11.4-14.6) H 06/22/25 06:50
INR 1.31 06/22/25 06:50
eGFR 57.44 06/22/25 06:50
Physical Exam
General: No Apparent Distress
HEENT: Negative Jaundice
Pulmonary: Other (unlabored)
GI: Soft
Extremities: Pulses Present
Skin: Warm and Other (livedo reticularis )
Psych: Calm
Orders
Orders
Orders From Last 24 Hours
06/21/25 13:21
Add On- LAB Routine

Documented by User: Calin Byrd MD 06/22/25 13:32
Plan
Plan
agree with enoxaparin bridge to warfarin with goal INR 2-3
anti Xa level therapeutic 0.3
resume enoxaparin 100mg/kg BID -appreciate pharmacy assist in dosing
ideal to repeat APLS panel in Jul 2025
steroid taper per rheumatology recommendations, Bactrim ppx on steroids
ammenorrihic since Apr 2025
Hematology Addendum:
Patient seen and evaluated and agree w/ COMPUTER INFORMATION SYSTEMS PROFESSOR note and plan as outlined
-cont anticoagulation - lovenox/ coumadin
-goal INR 2-3
Will continue to follow with you.
[2025-06-22] MEDS: LOVENOX 50 MG SC ×2 (09:14→09:55)
--- NOTE | 2025-06-22 12:39 | CM ---
CM reviewed chart, patient seen bedside.
Patient denies needs from CM at this time.
Care ongoing, CM will continue to follow.
Plan; home with family
--- NOTE | 2025-06-22 13:56 | W.PN.HOSP.TC ---
Today's Communication/Plan
-
Coumadin 5 mg
Lovenox 100 mg per heme
Xa levels in am
Assessment / Plan
Assessment / Plan
30-year-old female was recently diagnosed with catastrophic antiphospholipid syndrome complicated by stroke, heart failure with reduced EF, dilated cardiomyopathy. Patient was treated at [facility] and was transferred to [place] on 1924 where
she was diagnosed with catastrophic antiphospholipid syndrome. Patient was discharged on Coumadin initially 5 mg her INR was elevated therefore Coumadin was reduced. On the day of admission INR was found to be 1.1. She also had some weight gain
Per review of hematology oncology notes from [facility] She was treated with IVIG from 05/10/2025 to 05/14/2025. Patient was also started on Bactrim 80 mg/kg on 05/12/2025
Down to taper dose of 30 mg a day till 06/22/2025, prednisone 25 mg daily from 06 23 for a week, then 20 mg daily for a week, 15 mg daily for a week 10 mg daily for a week and 5 mg daily for a week to be completed on 07/27/2025.
At [facility] patient's anti-DNA levels were 1.66 (supratherapeutic goal is 0.5-1). They dosed her with 40 mg of Lovenox subcutaneous every [address] chest abdomen pelvis-evaluation for pulmonary embolism is limited because of motion artifact. No central PE. Wedge-shaped region of parenchymal opacity suspicious for pulmonary infarction. Main differential consideration of pneumonia. Linear
and ground glass opacities within the left lower lobe with main differential considerations of atelectasis and or pneumonia. No significant pleural effusions bilaterally. Cholelithiasis without evidence of cholecystitis. Mild splenomegaly 1 cm
low-density lesion in the anterior spleen cyst or hemangioma
EKG-sinus rhythm cannot rule out anterior infarct age undetermined
Echo 04/26/2025-severely dilated LV and severely reduced systolic function. 24% EF. Global hypokinesis. Normal RV size. Low normal RV SF. Severe MR. Mild TR. PA pressure 44 mmHg.
On examination patient is awake alert oriented
Cardiovascular system S1-S2 appreciated
Chest clear to auscultation S1 abdomen soft and nontender
Skin with livedo reticularis
No pedal edema
# Subtherapeutic INR
Recent diagnosis of catastrophic antiphospholipid syndrome
Protein C level was 74% ( 84-168).-Needs repeat testing if this was done while on anticoagulation
Protein S levels were normal 83%
Daily Coumadin per INR bridge with Lovenox INR 1.3 today
Factor Xa level within range. Lovenox changed to 100 mg twice daily
Reportedly levels were high with 100 mg daily dosage at [facility].
We also found out that the patient was supposed to be on steroids taper until 07/27/2025
Heme oncology following
Coumadin increased to 5 mg for tonight
Appreciate pharmacy helping with anticoagulation
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 Continue steroids reportedly she also had skin biopsy at [facility]
# Acute kidney injury-secondary to organ involvement from above reportedly got better with IVIG and steroids-follow creatinine
# Anemia-likely secondary to antiphospholipid disease
Also mild iron deficiency-continue p.o. iron
# Subclinical hypothyroidism with symptoms
TSH was 10.1
Patient initially started on 112 mcg daily
Reduce the dose to 50 mcg with subclinical hypothyroidism and also with cardiomyopathy.
Repeat TSH in 6 weeks
# Recently diagnosed dilated cardiomyopathy with HFrEF-continue valsartan, metoprolol, Lasix Daily weights. Fluid restriction. And salt restriction. Weight to be monitored daily.
# Hantavirus IgM positive on a sample sent on 04/27/2025. ID evaluation Appreciated. Feels that this is cross-reactivity with autoantibodies and false positive.
# CVA
April 2025 -MRI showed multifocal acute scattered infarcts consistent with emboli. No evidence of arterial stenosis.
Bubble study was negative for PFO
# Obesity with a BMI of 43
# Full code
Patient is on Bactrim prophylaxis because of steroids.
Case discussed with hematology oncology
Discussed with pharmacy in detail-appreciate pharmacy helping with the anticoagulation
Part of this note was created using voice recognition system. Occasional wrong word or��sound alike� substitutions may have inadvertently occurred due to the inherent limitations of voice recognition software. If noted kindly bring it to my
attention for correction.
Anticipated Discharge: 24 - 48 hours
Subjective/Interval History
-
Date of Service: June 22, 2025
Objective Data
-
Labs:
Laboratory Results
06/22/25
06:50
WBC 4.2 L
Hgb 8.8 L
Hct 25.9 L
Plt Count 151
PT 16.6 H
INR 1.31
Sodium 134 L
Potassium 4.7
Chloride 103
Carbon Dioxide 27
BUN 24 H
Creatinine 1.3 H
Glucose 106 H
Calcium 9.5
Vital Signs:
Vital Signs
Temp Pulse Resp BP Pulse Ox
98 F 75 20 124/80 100
06/22/25 07:00 06/22/25 07:00 06/22/25 07:00 06/22/25 07:00 06/22/25 07:00
I&O
06/21/25 06/22/25 06/23/25
06:59 06:59 06:59
Intake Total 480 / 480 600 / 600
Balance 480 / 480 600 / 600
[2025-06-22 15:00] VITALS: BP 97/52
[2025-06-22] MEDS: COUMADIN 5 MG PO (17:00)
[2025-06-22] MEDS: LOVENOX 100 MG SC (20:55)
[2025-06-22 23:23] VITALS: BP 93/49
[2025-06-23 06:00] VITALS: BMI 42.7
[2025-06-23] MEDS: SYNTHROID 50 MCG PO (06:02)
[2025-06-23 07:00] VITALS: BP 112/45
[2025-06-23 08:06] LABS: Hematocrit 27.9 % (37.0-47.0); Hemoglobin 9.0 g/dL (12.0-16.0); Mean Corp Hgb Conc. 32.3 g/dL (33.0-37.0); Mean Corpuscular Volume 91.2 fL (81.0-99.0); Platelet Count 135 10^3/uL (130-400); Red Cell Dist. Width 22.5 % (11.5-14.5)
[2025-06-23 08:07] LABS: INR 1.72; PT 20.3 Sec (11.4-14.6)
[2025-06-23 08:56] LABS: Blood Urea Nitrogen 29 mg/dl (7-17); Calcium 9.3 mg/dl (8.4-10.2); Carbon Dioxide 27 mmol/L (22-30); Chloride 102 mmol/L (98-107); Estimated Creatinine Clearance 69 ml/min; Glucose 72 mg/dl (70-99); Potassium 3.7 mmol/L (3.5-5.1); Sodium 135 mmol/L (135-145); eGFR 48.38
[2025-06-23] MEDS: LOVENOX 100 MG SC ×2 (09:06→22:11)
[2025-06-23] MEDS: FEOSOL 325 MG PO (09:07)
[2025-06-23] MEDS: DELTASONE 20 MG PO (09:07)
[2025-06-23] MEDS: VITAMIN B1 100 MG PO (09:07)
[2025-06-23] MEDS: DIOVAN 40 MG PO (09:07)
[2025-06-23] MEDS: PROTONIX 40 MG PO (09:07)
[2025-06-23] MEDS: DELTASONE 5 MG PO (09:07)
[2025-06-23] MEDS: TOPROL XL 25 MG PO (09:07)
[2025-06-23] MEDS: LASIX 80 MG PO (09:07)
[2025-06-23] MEDS: BACTRIM 400 MG/80 MG 1 TABLET PO (09:07)
[2025-06-23 15:00] VITALS: BP 86/51
--- NOTE | 2025-06-23 15:05 | W.PN.HOSP.TC ---
Today's Communication/Plan
-
Wait for INT to become theraputic
Assessment / Plan
Assessment / Plan
30-year-old female was recently diagnosed with catastrophic antiphospholipid syndrome complicated by stroke, heart failure with reduced EF, dilated cardiomyopathy. Patient was treated at [facility] and was transferred to [place] on 1924 where
she was diagnosed with catastrophic antiphospholipid syndrome. Patient was discharged on Coumadin initially 5 mg her INR was elevated therefore Coumadin was reduced. On the day of admission INR was found to be 1.1. She also had some weight gain
Per review of hematology oncology notes from [facility] She was treated with IVIG from 05/10/2025 to 05/14/2025. Patient was also started on Bactrim 80 mg/kg on 05/12/2025
Down to taper dose of 30 mg a day till 06/22/2025, prednisone 25 mg daily from 11 for a week, then 20 mg daily for a week, 15 mg daily for a week 10 mg daily for a week and 5 mg daily for a week to be completed on 07/27/2025.
At [facility] patient's anti-DNA levels were 1.66 (supratherapeutic goal is 0.5-1). They dosed her with 40 mg of Lovenox subcutaneous every [address] chest abdomen pelvis-evaluation for pulmonary embolism is limited because of motion artifact. No central PE. Wedge-shaped region of parenchymal opacity suspicious for pulmonary infarction. Main differential consideration of pneumonia. Linear
and ground glass opacities within the left lower lobe with main differential considerations of atelectasis and or pneumonia. No significant pleural effusions bilaterally. Cholelithiasis without evidence of cholecystitis. Mild splenomegaly 1 cm
low-density lesion in the anterior spleen cyst or hemangioma
EKG-sinus rhythm cannot rule out anterior infarct age undetermined
Echo 04/26/2025-severely dilated LV and severely reduced systolic function. 24% EF. Global hypokinesis. Normal RV size. Low normal RV SF. Severe MR. Mild TR. PA pressure 44 mmHg.
On examination patient is awake alert oriented
Cardiovascular system S1-S2 appreciated
Chest clear to auscultation S1 abdomen soft and nontender
Skin with livedo reticularis
No pedal edema
# Subtherapeutic INR
Recent diagnosis of catastrophic antiphospholipid syndrome
Protein C level was 74% ( 84-168).-Needs repeat testing if this was done while on anticoagulation
Protein S levels were normal 83%
Daily Coumadin per INR bridge with Lovenox INR 1.7 today
Factor Xa level within range. Lovenox changed to 100 mg twice daily
Reportedly levels were high with 100 mg daily dosage at [facility].
We also found out that the patient was supposed to be on steroids taper until 07/27/2025
Heme oncology following
Coumadin increased to 5 mg for tonight
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 Continue steroids reportedly she also had skin biopsy at [facility]
# Acute kidney injury-secondary to organ involvement from above reportedly got better with IVIG and steroids-follow creatinine
# Anemia-likely secondary to antiphospholipid disease
Also mild iron deficiency-continue p.o. iron
# Subclinical hypothyroidism with symptoms
TSH was 10.1
Patient initially started on 112 mcg daily
Reduce the dose to 50 mcg with subclinical hypothyroidism and also with cardiomyopathy.
Repeat TSH in 6 weeks
# Recently diagnosed dilated cardiomyopathy with HFrEF-continue valsartan, metoprolol, Lasix Daily weights. Fluid restriction. And salt restriction. Weight to be monitored daily.
# Hantavirus IgM positive on a sample sent on 04/27/2025. ID evaluation Appreciated. Feels that this is cross-reactivity with autoantibodies and false positive.
# CVA
April 2025 -MRI showed multifocal acute scattered infarcts consistent with emboli. No evidence of arterial stenosis.
Bubble study was negative for PFO
# Obesity with a BMI of 43
# Full code
Patient is on Bactrim prophylaxis because of steroids.
Case discussed with hematology oncology
Discussed with pharmacy in detail-appreciate pharmacy helping with the anticoagulation
Part of this note was created using voice recognition system. Occasional wrong word or��sound alike� substitutions may have inadvertently occurred due to the inherent limitations of voice recognition software. If noted kindly bring it to my
attention for correction.
Anticipated Discharge: Within 24 hours
Subjective/Interval History
-
Date of Service: June 23, 2025
Objective Data
-
Labs:
Laboratory Results
06/23/25
07:29
WBC 4.8
Hgb 9.0 L
Hct 27.9 L
Plt Count 135
PT 20.3 H
INR 1.72
Sodium 135
Potassium 3.7
Chloride 102
Carbon Dioxide 27
BUN 29 H
Creatinine 1.5 H
Glucose 72
Calcium 9.3
Vital Signs:
Vital Signs
Temp Pulse Resp BP Pulse Ox
97.8 F 48 16 112/45 100
06/23/25 07:00 06/23/25 07:00 06/23/25 07:00 06/23/25 07:00 06/23/25 07:00
I&O
06/22/25 06/23/25 06/24/25
06:59 06:59 05:59
Intake Total 600 / 600 840 / 840
Balance 600 / 600 840 / 840
[2025-06-23 15:08] VITALS: BP 86/51
[2025-06-23] MEDS: COUMADIN 5 MG PO (17:16)
[2025-06-23 20:16] VITALS: BP 93/41
[2025-06-23 22:15] VITALS: BP 91/46
[2025-06-23] MEDS: TOPROL XL PO (22:24)
[2025-06-23] MEDS: DIOVAN PO (22:24)
[2025-06-23 23:54] VITALS: BP 106/56
[2025-06-24 06:00] VITALS: BMI 42.7
[2025-06-24] MEDS: SYNTHROID 50 MCG PO (06:03)
[2025-06-24 07:28] VITALS: BP 112/51
[2025-06-24] MEDS: BACTRIM 400 MG/80 MG 1 TABLET PO (08:17)
[2025-06-24] MEDS: VITAMIN B1 100 MG PO (08:17)
[2025-06-24] MEDS: DELTASONE 5 MG PO (08:17)
[2025-06-24] MEDS: DIOVAN 40 MG PO (08:17)
[2025-06-24] MEDS: PROTONIX 40 MG PO (08:18)
[2025-06-24] MEDS: LASIX 80 MG PO (08:18)
[2025-06-24] MEDS: DELTASONE 20 MG PO (08:18)
[2025-06-24] MEDS: LOVENOX 100 MG SC (08:18)
[2025-06-24] MEDS: FEOSOL 325 MG PO (08:18)
[2025-06-24] MEDS: TOPROL XL 25 MG PO (08:18)
[2025-06-24 09:12] LABS: INR 1.96; PT 22.5 Sec (11.4-14.6)
[2025-06-24 12:39] LABS: Heparin Anti-Xa UF (UFH) > 1.10 IU/mL (0.30-0.70)
[2025-06-24 13:07] LABS: Blood Urea Nitrogen 33 mg/dl (7-17); Calcium 8.8 mg/dl (8.4-10.2); Carbon Dioxide 24 mmol/L (22-30); Chloride 103 mmol/L (98-107); Estimated Creatinine Clearance 64 ml/min; Glucose 102 mg/dl (70-99); Potassium 3.3 mmol/L (3.5-5.1); Sodium 135 mmol/L (135-145); eGFR 44.77
--- NOTE | 2025-06-24 14:55 | W.PN.HOSP.TC ---
Today's Communication/Plan
-
Coumadin 5 mg
Hold Lovenox tonight
Watch Creat
Hold Lasix and Diovan till labs back.
Assessment / Plan
Assessment / Plan
30-year-old female was recently diagnosed with catastrophic antiphospholipid syndrome complicated by stroke, heart failure with reduced EF, dilated cardiomyopathy. Patient was treated at [facility] and was transferred to [place] on 1924 where
she was diagnosed with catastrophic antiphospholipid syndrome. Patient was discharged on Coumadin initially 5 mg her INR was elevated therefore Coumadin was reduced. On the day of admission INR was found to be 1.1. She also had some weight gain
Per review of hematology oncology notes from [facility] She was treated with IVIG from 05/10/2025 to 05/14/2025. Patient was also started on Bactrim 80 mg/kg on 05/12/2025
Down to taper dose of 30 mg a day till 06/22/2025, prednisone 25 mg daily from 11 1 for a week, then 20 mg daily for a week, 15 mg daily for a week 10 mg daily for a week and 5 mg daily for a week to be completed on 07/27/2025.
At [facility] patient's anti Xa levels were 1.66 (supratherapeutic goal is 0.5-1). They dosed her with 40 mg of Lovenox subcutaneous every [address] chest abdomen pelvis-evaluation for pulmonary embolism is limited because of motion artifact. No central PE. Wedge-shaped region of parenchymal opacity suspicious for pulmonary infarction. Main differential consideration of pneumonia. Linear
and ground glass opacities within the left lower lobe with main differential considerations of atelectasis and or pneumonia. No significant pleural effusions bilaterally. Cholelithiasis without evidence of cholecystitis. Mild splenomegaly 1 cm
low-density lesion in the anterior spleen cyst or hemangioma
EKG-sinus rhythm cannot rule out anterior infarct age undetermined
Echo 04/26/2025-severely dilated LV and severely reduced systolic function. 24% EF. Global hypokinesis. Normal RV size. Low normal RV SF. Severe MR. Mild TR. PA pressure 44 mmHg.
On examination patient is awake alert oriented
Cardiovascular system S1-S2 appreciated
Chest clear to auscultation S1 abdomen soft and nontender
Skin with livedo reticularis
No pedal edema
# Subtherapeutic INR on admission
Recent diagnosis of catastrophic antiphospholipid syndrome
Protein C level was 74% ( 84-168)
Protein S levels were normal 83%
Daily Coumadin per INR bridge with Lovenox INR 1.96 today
Factor Xa level elevated.
Hold Lovenox tonight ( Discussed with heme)
Reportedly levels were high with 100 mg daily dosage at [facility] also
We also found out that the patient was supposed to be on steroids taper until 07/27/2025,
Coumadin increased to 5 mg for tonight
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 Continue steroids reportedly she also had skin biopsy at [facility]
# Acute kidney injury-secondary to organ involvement from above reportedly got better with IVIG and steroids-follow creatinine. Elevated today, closely follow. Hold Am Laxix and Diovan till levels are back.
# Anemia-likely secondary to antiphospholipid disease
Also mild iron deficiency-continue p.o. iron
# Subclinical hypothyroidism with symptoms
TSH was 10.1
Patient initially started on 112 mcg daily
Reduce the dose to 50 mcg with subclinical hypothyroidism and also with cardiomyopathy.
Repeat TSH in 6 weeks
# Recently diagnosed dilated cardiomyopathy with HFrEF-continue metoprolol, Hold Diovan and Lasix .Daily weights. Fluid restriction. And salt restriction. Weight to be monitored daily.
# Hantavirus IgM positive on a sample sent on 04/27/2025. ID evaluation Appreciated. Feels that this is cross-reactivity with autoantibodies and false positive.
# CVA
April 2025 -MRI showed multifocal acute scattered infarcts consistent with emboli. No evidence of arterial stenosis.
Bubble study was negative for PFO
# Obesity with a BMI of 43
# JON- Continue CPAP
# Full code
Patient is on Bactrim prophylaxis because of steroids.
Case discussed with hematology oncology
Discussed with pharmacy in detail-appreciate pharmacy helping with the anticoagulation
D/W Father from pt's phone
Part of this note was created using voice recognition system. Occasional wrong word or��sound alike� substitutions may have inadvertently occurred due to the inherent limitations of voice recognition software. If noted kindly bring it to my
attention for correction.
Anticipated Discharge: 24 - 48 hours
Subjective/Interval History
-
Date of Service: June 24, 2025
Objective Data
-
Labs:
Laboratory Results
06/24/25 06/24/25
08:11 11:32
PT 22.5 H
INR 1.96
Sodium Cancelled 135
Potassium Cancelled 3.3 L
Chloride Cancelled 103
Carbon Dioxide Cancelled 24
BUN Cancelled 33 H
Creatinine Cancelled 1.6 H
Glucose Cancelled 102 H
Calcium Cancelled 8.8
Vital Signs:
Vital Signs
Temp Pulse Resp BP Pulse Ox
97.6 F 56 18 112/51 96
06/24/25 07:28 06/24/25 07:28 06/24/25 07:28 06/24/25 07:28 06/24/25 07:28
I&O
06/23/25 06/24/25 06/25/25
06:59 05:59 06:59
Intake Total 840 / 840 200 / 200
Balance 840 / 840 200 / 200
[2025-06-24 14:59] VITALS: BP 119/66
[2025-06-24] MEDS: KCL 40 MEQ PO (15:45)
[2025-06-24] MEDS: COUMADIN 5 MG PO (17:27)
[2025-06-24] MEDS: TOPROL XL PO (22:31)
[2025-06-24 23:30] VITALS: BP 113/70
[2025-06-25 06:00] VITALS: BMI 43.0
[2025-06-25] MEDS: SYNTHROID 50 MCG PO (06:42)
[2025-06-25 07:40] VITALS: BP 123/75
[2025-06-25] MEDS: VITAMIN B1 100 MG PO (08:37)
[2025-06-25] MEDS: TOPROL XL 25 MG PO ×2 (08:37→20:41)
[2025-06-25] MEDS: FEOSOL 325 MG PO (08:37)
[2025-06-25] MEDS: PROTONIX 40 MG PO (08:37)
[2025-06-25] MEDS: DELTASONE 20 MG PO (08:37)
[2025-06-25] MEDS: BACTRIM 400 MG/80 MG 1 TABLET PO (08:37)
[2025-06-25] MEDS: DELTASONE 5 MG PO (08:38)
[2025-06-25 08:44] LABS: INR 1.97; PT 22.6 Sec (11.4-14.6)
[2025-06-25 09:10] LABS: Blood Urea Nitrogen 37 mg/dl (7-17); Calcium 9.0 mg/dl (8.4-10.2); Carbon Dioxide 26 mmol/L (22-30); Chloride 102 mmol/L (98-107); Estimated Creatinine Clearance 74 ml/min; Glucose 70 mg/dl (70-99); Potassium 3.9 mmol/L (3.5-5.1); Sodium 133 mmol/L (135-145); eGFR 52.55
--- NOTE | 2025-06-25 09:24 | W.PN.ONC2 ---
Today's Communication / Plan
-
pt father on phone during visit provided updates and questions answered
case discussed with hospitalist
Impression
Impression
a/w facial swelling and subtherapeutic INR
catastrophic antiphospholipid syndrome
hx supratherapeutic anti xa on enoxaparin 1mg/kg bid, possibly in the setting of decreased clearance with ROGELIO
subtherapeutic INR
livedo reticularis tx with IVIG x 5 days (05/10-05/14) followed by a steroid taper, currently on prednisone 30mg daily
CVA
JESSICA
GERD
HFrEF, dilated cardiomyopathy
Plan
Plan
agree with enoxaparin bridge to warfarin with goal INR 2.5-3
resume enoxaparin with INR <2, more at risk for thrombosis than bleeding at this point
ideal to repeat APLS panel in Jul 2025
steroid taper per rheumatology recommendations, Bactrim ppx on steroids
amenorrheic since Apr 2025
Subjective/Objective
Subjective
no new complaints
denies overt bleeding or atypical bruising
denies any new neurological symtpoms, SOB, chest pain, LE pain or swelling
Vital Signs:
Vital Signs
Temp Pulse Resp BP Pulse Ox
97.7 F 66 17 123/75 97
06/25/25 07:40 06/25/25 07:40 06/25/25 07:40 06/25/25 07:40 06/25/25 07:40
Lab Results:
Laboratory Data
WBC 4.8 10^3/uL (4.8-10.8) 06/23/25 07:29
Hgb 9.0 g/dL (12.0-16.0) L 06/23/25 07:29
Plt Count 135 10^3/uL (130-400) 06/23/25 07:29
PT 22.6 Sec (11.4-14.6) H 06/25/25 08:17
INR 1.97 06/25/25 08:17
eGFR 52.55 06/25/25 08:17
Physical Exam
HEENT: Moist Mucous Membranes; No Jaundice
Pulmonary: Other (unlabored)
GI: Soft
Extremities: Pulses Present
--- NOTE | 2025-06-25 11:38 | CM ---
CM reviewed chart, patient seen bedside.
Patient denies needs at this time.
Oncology following.
Care ongoing, CM will continue to follow.
Plan; home with family when stable
[2025-06-25] MEDS: LOVENOX 100 MG SC ×2 (12:24→23:06)
--- NOTE | 2025-06-25 13:51 | W.PN.HOSP.TC ---
Today's Communication/Plan
-
coumadin 6 mg
Lovenox
Assessment / Plan
Assessment / Plan
30-year-old female was recently diagnosed with catastrophic antiphospholipid syndrome complicated by stroke, heart failure with reduced EF, dilated cardiomyopathy. Patient was treated at [facility] and was transferred to [place] on 1924 where
she was diagnosed with catastrophic antiphospholipid syndrome. Patient was discharged on Coumadin initially 5 mg her INR was elevated therefore Coumadin was reduced. On the day of admission INR was found to be 1.1. She also had some weight gain
Per review of hematology oncology notes from [facility] She was treated with IVIG from 05/10/2025 to 05/14/2025. Patient was also started on Bactrim 80 mg/kg on 05/12/2025
Down to taper dose of 30 mg a day till 06/22/2025, prednisone 25 mg daily from 11 for a week, then 20 mg daily for a week, 15 mg daily for a week 10 mg daily for a week and 5 mg daily for a week to be completed on 07/27/2025.
At [facility] patient's anti Xa levels were 1.66 (supratherapeutic goal is 0.5-1). They dosed her with 40 mg of Lovenox subcutaneous every [address] chest abdomen pelvis-evaluation for pulmonary embolism is limited because of motion artifact. No central PE. Wedge-shaped region of parenchymal opacity suspicious for pulmonary infarction. Main differential consideration of pneumonia. Linear
and ground glass opacities within the left lower lobe with main differential considerations of atelectasis and or pneumonia. No significant pleural effusions bilaterally. Cholelithiasis without evidence of cholecystitis. Mild splenomegaly 1 cm
low-density lesion in the anterior spleen cyst or hemangioma
EKG-sinus rhythm cannot rule out anterior infarct age undetermined
Echo 04/26/2025-severely dilated LV and severely reduced systolic function. 24% EF. Global hypokinesis. Normal RV size. Low normal RV SF. Severe MR. Mild TR. PA pressure 44 mmHg.
On examination patient is awake alert oriented
Cardiovascular system S1-S2 appreciated
Chest clear to auscultation S1 abdomen soft and nontender
Skin with livedo reticularis
No pedal edema
# Subtherapeutic INR on admission
Recent diagnosis of catastrophic antiphospholipid syndrome
Protein C level was 74% ( 84-168)
Protein S levels were normal 83%
Daily Coumadin per INR bridge with Lovenox INR 1.97 today
Factor Xa level elevated. Held Lovenox last night and restarted today
Reportedly levels were high with 100 mg daily dosage at [facility] also
We also found out that the patient was supposed to be on steroids taper until 07/27/2025,
Coumadin increased to 6 mg for tonight
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 Continue steroids reportedly she also had skin biopsy at [facility]
# Acute kidney injury-secondary to organ involvement from above reportedly got better with IVIG and steroids-follow creatinine. Restart Lasix
# Anemia-likely secondary to antiphospholipid disease
Also mild iron deficiency-continue p.o. iron
# Subclinical hypothyroidism with symptoms
TSH was 10.1
Patient initially started on 112 mcg daily
Reduce the dose to 50 mcg with subclinical hypothyroidism and also with cardiomyopathy.
Repeat TSH in 6 weeks
# Recently diagnosed dilated cardiomyopathy with HFrEF-continue metoprolol, Hold Diovan and continue Lasix .Daily weights. Fluid restriction. And salt restriction. Weight to be monitored daily.
# Hantavirus IgM positive on a sample sent on 04/27/2025. ID evaluation Appreciated. Feels that this is cross-reactivity with autoantibodies and false positive.
# CVA
April 2025 -MRI showed multifocal acute scattered infarcts consistent with emboli. No evidence of arterial stenosis.
Bubble study was negative for PFO
# Obesity with a BMI of 43
# JON- Continue CPAP
# Full code
Patient is on Bactrim prophylaxis because of steroids.
Case discussed with hematology oncology
Part of this note was created using voice recognition system. Occasional wrong word or��sound alike� substitutions may have inadvertently occurred due to the inherent limitations of voice recognition software. If noted kindly bring it to my
attention for correction.
Anticipated Discharge: Within 24 hours
Subjective/Interval History
-
Date of Service: June 25, 2025
Objective Data
-
Labs:
Laboratory Results
06/25/25
08:17
PT 22.6 H
INR 1.97
Sodium 133 L
Potassium 3.9
Chloride 102
Carbon Dioxide 26
BUN 37 H
Creatinine 1.4 H
Glucose 70
Calcium 9.0
Vital Signs:
Vital Signs
Temp Pulse Resp BP Pulse Ox
97.7 F 66 17 123/75 97
06/25/25 07:40 06/25/25 07:40 06/25/25 07:40 06/25/25 07:40 06/25/25 07:40
I&O
06/24/25 06/25/25 06/26/25
05:59 06:59 06:59
Intake Total 200 / 200 1160 / 1160 240 / 240
Balance 200 / 200 1160 / 1160 240 / 240
[2025-06-25] MEDS: LASIX 80 MG PO (14:38)
[2025-06-25 15:39] VITALS: BP 127/74
[2025-06-25] MEDS: COUMADIN 6 MG PO (17:12)
[2025-06-25 23:35] VITALS: BP 147/84
[2025-06-26 06:00] VITALS: BMI 42.5
[2025-06-26] MEDS: SYNTHROID 50 MCG PO (06:29)
[2025-06-26 07:00] VITALS: BP 117/69
[2025-06-26] MEDS: BACTRIM 400 MG/80 MG 1 TABLET PO (07:41)
[2025-06-26] MEDS: LASIX 80 MG PO (07:41)
[2025-06-26] MEDS: DELTASONE 20 MG PO (07:41)
[2025-06-26] MEDS: FEOSOL 325 MG PO (07:42)
[2025-06-26] MEDS: VITAMIN B1 100 MG PO (07:42)
[2025-06-26] MEDS: TOPROL XL 25 MG PO (07:42)
[2025-06-26] MEDS: PROTONIX 40 MG PO (07:43)
[2025-06-26] MEDS: DELTASONE 5 MG PO (07:43)
[2025-06-26 09:16] LABS: INR 2.32; PT 25.6 Sec (11.4-14.6)
--- NOTE | 2025-06-26 09:16 | W.PN.ONC2 ---
Today's Communication / Plan
-
ok to d/c enoxaparin with INR >2 and plan for discharge home on warfarin. She will continue to check INR 2x/week and follow up with her Coumadin clinic for further management of her INR. [place] to have goal 2.5-3 to avoid subtherapeutic INR moving
forward.
Impression
Impression
a/w facial swelling and subtherapeutic INR
catastrophic antiphospholipid syndrome
hx supratherapeutic anti xa on enoxaparin 1mg/kg bid, possibly in the setting of decreased clearance with ROGELIO
subtherapeutic INR
livedo reticularis tx with IVIG x 5 days (05/10-05/14) followed by a steroid taper, currently on prednisone 30mg daily
CVA
JESSICA
GERD
HFrEF, dilated cardiomyopathy
Plan
Plan
goal INR 2.5-3
d/c enoxoaprin wtih INR>2
ideal to repeat APLS panel in Jul 2025
steroid taper per rheumatology recommendations, Bactrim ppx on steroids
amenorrheic since Apr 2025
Subjective/Objective
Subjective
afebrile, no hypoxia or hypotension
denies sxs thrombosis
denies overt bleeding
Vital Signs:
Vital Signs
Temp Pulse Resp BP Pulse Ox
98.1 F 62 18 117/69 100
06/26/25 07:00 06/26/25 07:00 06/26/25 07:00 06/26/25 07:00 06/26/25 07:00
Lab Results:
Laboratory Data
WBC 4.8 10^3/uL (4.8-10.8) 06/23/25 07:29
Hgb 9.0 g/dL (12.0-16.0) L 06/23/25 07:29
Plt Count 135 10^3/uL (130-400) 06/23/25 07:29
PT 22.6 Sec (11.4-14.6) H 06/25/25 08:17
INR 1.97 06/25/25 08:17
eGFR 52.55 06/25/25 08:17
Physical Exam
HEENT: Moist Mucous Membranes; No Jaundice
Pulmonary: Other (unlabored)
GI: Soft
Extremities: Pulses Present
[2025-06-26] MEDS: LOVENOX 100 MG SC (11:17)
--- NOTE | 2025-06-26 14:24 | W.PN.HOSP.TC ---
Addendum entered and electronically signed by Laith Maldonado MD 06/26/25 15:15:
Per patient's father she has a heel sander rubber downtown at [facility] and she has an appointment on 07/10/2025 with them. Therefore no appointments made for [facility]
Original Note:
Today's Communication/Plan
-
Discharge
Assessment / Plan
Assessment / Plan
30-year-old female was recently diagnosed with catastrophic antiphospholipid syndrome complicated by stroke, heart failure with reduced EF, dilated cardiomyopathy. Patient was treated at [facility] and was transferred to [facility] on 1924 where
she was diagnosed with catastrophic antiphospholipid syndrome. Patient was discharged on Coumadin initially 5 mg her INR was elevated therefore Coumadin was reduced. On the day of admission INR was found to be 1.1. She also had some weight gain
Per review of hematology oncology notes from [facility] She was treated with IVIG from 05/10/2025 to 05/14/2025. Patient was also started on Bactrim 80 mg/kg on 05/12/2025
Down to taper dose of 30 mg a day till 06/22/2025, prednisone 25 mg daily from 11 1 for a week, then 20 mg daily for a week, 15 mg daily for a week 10 mg daily for a week and 5 mg daily for a week to be completed on 07/27/2025.
At [facility] patient's anti Xa levels were 1.66 (supratherapeutic goal is 0.5-1). They dosed her with 40 mg of Lovenox subcutaneous every [address] chest abdomen pelvis-evaluation for pulmonary embolism is limited because of motion artifact. No central PE. Wedge-shaped region of parenchymal opacity suspicious for pulmonary infarction. Main differential consideration of pneumonia. Linear
and ground glass opacities within the left lower lobe with main differential considerations of atelectasis and or pneumonia. No significant pleural effusions bilaterally. Cholelithiasis without evidence of cholecystitis. Mild splenomegaly 1 cm
low-density lesion in the anterior spleen cyst or hemangioma
EKG-sinus rhythm cannot rule out anterior infarct age undetermined
Echo 04/26/2025-severely dilated LV and severely reduced systolic function. 24% EF. Global hypokinesis. Normal RV size. Low normal RV SF. Severe MR. Mild TR. PA pressure 44 mmHg.
On examination patient is awake alert oriented
Cardiovascular system S1-S2 appreciated
Chest clear to auscultation S1 abdomen soft and nontender
Skin with livedo reticularis
No pedal edema
# Subtherapeutic INR on admission
Recent diagnosis of catastrophic antiphospholipid syndrome
Protein C level was 74% ( 84-168)
Protein S levels were normal 83%
Daily Coumadin per INR bridge with Lovenox INR 2.32 today
DC Lovenox
We also found out that the patient was supposed to be on steroids taper until 07/27/2025,
Coumadin 5 mg for 4 days and 6 mg for 3 days
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 Continue steroids reportedly she also had skin biopsy at [facility]
# Acute kidney injury-secondary to organ involvement from above reportedly got better with IVIG and steroids-follow creatinine. Restarted Lasix
# Anemia-likely secondary to antiphospholipid disease
Also mild iron deficiency-continue p.o. iron
# Subclinical hypothyroidism with symptoms
TSH was 10.1
Patient initially started on 112 mcg daily
Reduce the dose to 50 mcg with subclinical hypothyroidism and also with cardiomyopathy.
Repeat TSH in 6 weeks
# Recently diagnosed dilated cardiomyopathy with HFrEF-continue Metoprolol, Restrat Diovan and Continue Lasix . Daily weights. Fluid restriction. And salt restriction. Weight to be monitored daily.
# Hantavirus IgM positive on a sample sent on 04/27/2025. ID evaluation Appreciated. Feels that this is cross-reactivity with autoantibodies and false positive.
# CVA
April 2025 -MRI showed multifocal acute scattered infarcts consistent with emboli. No evidence of arterial stenosis.
Bubble study was negative for PFO
# Obesity with a BMI of 43
# JON- Continue CPAP
# Full code
Patient is on Bactrim prophylaxis because of steroids.
Case discussed with hematology oncology okay for discharge with Coumadin
Patient to be on prednisone 25 mg till 06/29/2025. Father said that patient does not have a prescription therefore I will provide prescription. They have prescription for Bactrim
Called and spoke to Ana Maria Saucedo at [facility] who manages [facility] [phone] . They will send a script for INR to [facility] ( Pt's new lab) Start tomorrow and they will call her with the INR .
Called PCP office Mickey Neal away. ( [phone]) . Left message for covering person to call me back .
Part of this note was created using voice recognition system. Occasional wrong word or��sound alike� substitutions may have inadvertently occurred due to the inherent limitations of voice recognition software. If noted kindly bring it to my
attention for correction.
I have also reached out to [facility] cardiology front office secretary to give patient an appointment with cardiology at discharge
Total time to coordinate discharge more than 45 minutes
Anticipated Discharge: Today
Subjective/Interval History
-
Date of Service: June 26, 2025
Objective Data
-
Labs:
Laboratory Results
06/26/25
08:28
PT 25.6 H
INR 2.32
Vital Signs:
Vital Signs
Temp Pulse Resp BP Pulse Ox
98.1 F 62 18 117/69 100
06/26/25 07:00 06/26/25 07:00 06/26/25 07:00 06/26/25 07:00 06/26/25 07:00
I&O
06/25/25 06/26/25 06/27/25
06:59 06:59 06:59
Intake Total 1160 / 1160 720 / 720
Balance 1160 / 1160 720 / 720
--- NOTE | 2025-06-26 15:21 | W.DS.TRANS ---
Addendum entered and electronically signed by Laith Maldonado MD 06/26/25 16:21:
Dictation- [id number]
Original Note:
DC Summary - Rn Office
-
Discharge Instructions:
Discharge Diagnosis/Procedures Subtherapeutic INR
Libido reticularis
Acute kidney injury
Subclinical hypothyroidism with symptoms
Dilated cardiomyopathy
History of CVA
Sleep apnea
Gallstones
Diet Diabetic, Carb Controlled,2 Gram Sodium,Restrict
fluids to 48 oz
Activity As tolerated
Driving Restrictions As prior to admission
Blood Work Get first INR on 06/27/25 and twice a week after
that. CBC and BMP 1 week ( Script from PCP).
THyroid function tests in 4-5 weeks
Specialty Instructions Weigh Daily
Instructions:
Stand-Alone Forms:
Changes to Home Medications: Yes
Discharge Medications:
DC Medications w/original date entered in [employer]
ferrous sulfate 325 mg (65 mg iron) tablet 325 mg PO DAILY Supplement 06/20/25
furosemide 80 mg tablet (Lasix) 80 mg PO DAILY Fluid Retention/Swelling 06/20/25
lansoprazole 30 mg capsule,delayed release 30 mg PO DAILY gerd 06/20/25
metoprolol succinate 25 mg tablet,extended release 24 hr (Toprol XL) 25 mg PO BID Blood Pressure 06/20/25
thiamine HCl (vitamin B1) 100 mg tablet 100 mg PO DAILY Supplement 06/20/25
valsartan 40 mg tablet 40 mg PO BID Blood Pressure 06/20/25
levothyroxine 50 mcg tablet 50 mcg PO DAILY @ 0600 Thyroid #30 tabs 06/26/25
prednisone 10 mg tablet See Rx Instructions .Route .COMPLEX anti PL #45 tabs 06/26/25
sulfamethoxazole 400 mg-trimethoprim 80 mg tablet 1 tab PO DAILY while on prednisone #0 tabs 06/26/25
warfarin 5 mg tablet 5 mg PO SUTUTHSA Blood clot prevention/tx #30 tabs 06/26/25
warfarin 6 mg tablet 6 mg feeding tube MOWEFR Blood clot prevention/tx #30 tabs 06/26/25
Home Medication Changes
Coumadin dose changed
Levothyroxine is new
Pending Results: No
--- NOTE | 2025-06-26 16:19 | CM ---
CM reviewed chart, patient for d/c today.
Patient confirms transportation home from father.
No needs from CM.
Plan; home no needs
--- NOTE | 2025-06-26 16:25 | W.PN.UPDATE ---
Update Note
Progress Note Update
Some one from [place] named Cyndee called and left a message with the practice number not ,cell. Called back. Not able to reach when I called.
I called a third time and left message
--- NOTE | 2025-06-27 08:44 | W.PN.UPDATE ---
Update Note
Progress Note Update
Spoke to NAKITA May and updated regarding the hospital stay, INR, need for cardiology and rheumatology follow-up, prednisone, creatinine, repeat thyroid function tests and also an office follow-up.
== END 2025-06-26 17:12 | disposition home or self-care (01) | DRG 815 ==
LOC: 4 WEST ACU 09:38
PROVIDERS: Physician Assistant; ADMITTING PHYSICIAN Family Medicine; ATTENDING PHYSICIAN Hospitalist; CONSULT PHYSICIAN Internal Medicine Hematology & Oncology; EMERGENCY PHYSICIAN Emergency Medicine; FAMILY PHYSICIAN Registered Nurse Medical-Surgical; OTHER PHYSICIAN Internal Medicine Infectious Disease
DX: D68.61 Antiphospholipid syndrome (principal); F84.5 Asperger's syndrome; I42.0 Dilated cardiomyopathy; N17.9 Acute kidney failure, unspecified; I50.22 Chronic systolic (congestive) heart failure; Z68.41 Body mass index [BMI] 40.0-44.9, adult; E03.8 Other specified hypothyroidism; K80.20 Calculus of gallbladder without cholecystitis without obstruction; Z79.890 Hormone replacement therapy; K21.9 Gastro-esophageal reflux disease without esophagitis; D50.9 Iron deficiency anemia, unspecified; I11.0 Hypertensive heart disease with heart failure; Z79.01 Long term (current) use of anticoagulants; Z79.899 Other long term (current) drug therapy; Z86.73 Personal history of transient ischemic attack (TIA), and cerebral infarction without residual deficits; E66.813 Obesity, class 3; G47.33 Obstructive sleep apnea (adult) (pediatric); J45.909 Unspecified asthma, uncomplicated
CPT/HCPCS: 71275; 74177; 80048; 80053; 81003; 81015; 82728; 83540; 83550; 83735; 83880; 84439; 84443; 84484; 84703; 85025; 85027; 85379; 85520; 85610; 93005; 96372; 99285; Q9967

== ENCOUNTER 2025-07-14 16:15 | Inpatient (IN) | payer OTHER, MEDICAID, SELFPAY ==
[2025-07-14] VITALS (9 sets, daily range): BP systolic 76–136; BP diastolic 49–80; PULSE 52–81; BMI 26.1; BMI 48.7
[2025-07-14 12:56] LABS: Hematocrit 30.3 % (37.0-47.0); Hemoglobin 10.1 g/dL (12.0-16.0); Mean Corp Hgb Conc. 33.3 g/dL (33.0-37.0); Mean Corpuscular Volume 92.9 fL (81.0-99.0); Nucleated Red Blood Cells % 0 %; Platelet Count 161 10^3/uL (130-400); Red Cell Dist. Width 20.2 % (11.5-14.5)
[2025-07-14 13:02] LABS: APTT 31.5 Sec (23.4-35.0); INR 2.37; PT 26.0 Sec (11.4-14.6)
[2025-07-14 13:14] LABS: Blood Urea Nitrogen 38 mg/dl (7-17); Calcium 9.8 mg/dl (8.4-10.2); Carbon Dioxide 25 mmol/L (22-30); Chloride 103 mmol/L (98-107); Estimated Creatinine Clearance 48 ml/min; Glucose 89 mg/dl (70-99); Sodium 132 mmol/L (135-145); eGFR 48.38
[2025-07-14 13:27] LABS: Troponin I < 0.012 ng/ml
--- NOTE | 2025-07-14 14:25 | ED.GENMED ---
History of Present Illness
General
Chief Complaint: Fainting/Passed Out
Time Seen by Provider: 07/14/25 12:11
History of Present Illness
History of Present Illness:
see MDM
Past History
Past History
ED Past Medical History: CVA (Bihemispheric April 2025) and Other (Autism spectrum disorder, cardiomyopathy 2024)
ED Past Surgical History: None
Social History
Tobacco: Non-smoker
Alcohol: None
Drug: None
Living: with family
Employment: Employed
Family History
Family History: Other (Reviewed and noncontributory)
Phy Exam
Physical Exam
Physical Exam:
GENERAL: Alert , in no apparent distress generalized swelling, facial minimal, some extremity swelling,
EYE: pupils equal and reactive
NECK: Supple
ENT: o/p clr, mmm.
CARDIAC: Regular rate and rhythm . No significant murmur
LUNGS: Clear breath sounds bilaterally, no acute respiratory distress, no wheezes/rales/rhonchi
ABDOMEN: Soft, without focal tenderness, no r/g, no cvat, normal bowel sounds
NEUROLOGICAL: Alert and oriented, no focal neuro deficits
SKIN: Warm and dry, patient has a superficial abrasion to her left elbow, she has a bruise to her right upper arm, right dorsal foot, no significant tenderness mottled/stray like appearance of her lower extremities
MUSCULOSKELETAL: Generalized mild nonpitting swelling arms and legs, well perfused. neg nae's sign
PSYCH: Normal and appropriate interaction., Intellectual disability but seems baseline
Course
Orders/Labs/Results
Orders:
Orders
07/14/25 12:32
CT Head W/o Iv Contrast Urgent
Comment:
Reason For Exam: syncope on coumadin
CR Chest - 2 Views Urgent
Comment:
Reason For Exam: syncope, cardiomyopathy
07/14/25 12:39
Basic Metabolic Panel Urgent
Complete Blood Count/With Diff Urgent
NT-proBNP Urgent
PTT Urgent
Prothrombin Time Urgent
Troponin I Urgent
07/14/25 13:07
EKG [Electrocardiogram (*1)] Urgent
Reason for Study: Vertigo / Dizzy
EKG- Treatment ONCE
07/14/25 Dinner
Cholesterol Lowering
At Your Request: Full Participation
Cholesterol Lowering: Sodium, 2 Gram
07/14/25 15:59
Admit/Transfer Patient As Directed
Co-Sign Provider:
Level of Care: Inpatient admission
Assign to:: Telemetry
Physician / Group: Hospitalist
Diagnosis: Syncope
Reason for Telemetry: Syncope
Date to Stop Telemetry: 07/16/25
Time to Stop Telemetry: 11:00
Reason for Hospitalization: Syncope
Expected length of stay greater than two midnights?: Yes
ELOS- Estimated Length of Stay in days: 4
I certify the patient meets the requirements for IP care: Yes
PRN Pain Medication Management As Directed
May give lesser potent ordered pain med per pt: Yes
preference::
Protocol:: Medication orders for pain may be administered in a
manner that supports deferring to patient preference
when the pt is:
- Requesting an ordered lesser potent pain medication.
Least to most potent pain medications are defined
as: acetaminophen < NSAID < tramadol < opioids
(morphine, oxycodone, hydromorphone).
- Requesting a lesser dose of the same medication IF
ORDERED.
- Requesting a less intrusive route of administration
if both routes are prescribed by the provider (PO <
IV).
07/14/25 16:02
Code Status As Directed
Resuscitation Status: Full Code
07/14/25 17:28
Electrocardiogram (*1) Q3H
Reason for Study: Chest Pain
Comment: at admission and Q3H for total of 3, to be done with each troponin
Troponin I Q3H
Comment: at admit & Q3H for 3 total including ED draws, obtain ECG with each level
Furosemide [Lasix] 80 mg PO Q48H
07/14/25 17:28
Echo 2D MMode Color/Doppler Routine
Reason for Study: chest pain
Glycohemoglobin (HgbA1c) Routine
TSH Reflex To Free T4 Routine
Activity As Directed
Activity Level: Ambulate
INT (Intravenous Needle Therapy) As Directed
Comment: maintain peripheral IV access
Intake/ Output As Directed
Frequency: Per unit guidelines
Pneumatic Compression Sleeves As Directed
Type: Knee high
Vital Signs As Directed
Frequency: q4h
Weight As Directed
Frequency: Daily
DX Deep Vein Thrombosis Video Routine
07/14/25 18:00
Warfarin [Coumadin] 5 mg PO DAILY@1800
07/14/25 18:48
INR [Prothrombin Time] Routine
07/14/25 20:00
Metoprolol Xl [Toprol Xl] 25 mg PO BID
Valsartan [Diovan] 40 mg PO BID
07/14/25 20:28
Electrocardiogram (*1) Q3H
Reason for Study: Chest Pain
Comment: at admission and Q3H for total of 3, to be done with each troponin
Troponin I Q3H
Comment: at admit & Q3H for 3 total including ED draws, obtain ECG with each level
07/14/25 23:28
Electrocardiogram (*1) Q3H
Reason for Study: Chest Pain
Comment: at admission and Q3H for total of 3, to be done with each troponin
Troponin I Q3H
Comment: at admit & Q3H for 3 total including ED draws, obtain ECG with each level
07/15/25 06:00
Basic Metabolic Panel IN AM
Complete Blood Count/No Diff IN AM
INR [Prothrombin Time] IN AM
Levothyroxine [Synthroid] 50 mcg PO DAILY @ 0600
07/15/25 08:00
Ferrous Sulfate [Feosol] 325 mg PO DAILY
Prednisone [Deltasone] 10 mg PO DAILY
Sulfamethoxazole/Trimethoprim [Bactrim 400 mg/80 mg] 1 tablet PO DAILY
Thiamine HCl [Vitamin B1] 100 mg PO DAILY
07/16/25 11:00
DC Protocol for Telemetry ONCE
Abnormal Lab Results
07/14/25
12:39
RBC 3.26 L 10^6/uL
(4.20-5.40)
Hgb 10.1 L g/dL
(12.0-16.0)
Hct 30.3 L %
(37.0-47.0)
RDW 20.2 H %
(11.5-14.5)
Abs Immat Gran (auto) 0.1 H 10^3/uL
(0-0.05)
Absolute Neuts (auto) 7.0 H 10^3/uL
(1.4-6.5)
Absolute Lymphs (auto) 0.7 L 10^3/uL
(1.2-3.4)
Immature Gran % 1.6 H %
(0-0.5)
Neutrophils % 82.2 H %
(42.2-75.2)
Lymphocytes % 8.1 L %
(20.5-51.1)
PT 26.0 H Sec
(11.4-14.6)
Sodium 132 L mmol/L
(135-145)
BUN 38 H mg/dl
(7-17)
Creatinine 1.5 H mg/dL
(0.6-1.0)
07/14/25 12:39
07/14/25 12:39
Vital Signs
Initial and Last Documented VS:
Initial Vital Signs
Temp Pulse Resp BP Pulse Ox
36.6 C 69 16 132/76 100
07/14/25 11:54 07/14/25 11:54 07/14/25 11:54 07/14/25 11:54 07/14/25 11:54
Last Documented Vital Signs
Temp Pulse Resp BP Pulse Ox
37.1 C 54 23 132/73 100
07/14/25 17:29 07/14/25 17:29 07/14/25 17:29 07/14/25 17:29 07/14/25 17:29
MDM/Problems Addressed
Differential Diagnosis Includes:
see MDM
MDM/Problems Addressed:
Note:
CHIEF COMPLAINT(S)
The patient experienced a syncopal event while in the shower.
HISTORY OF PRESENT ILLNESS
The patient, a female with a history of catastrophic antiphospholipid syndrome on steroids, multiple strokes on Coumadin, cardiomyopathy, intellectual disability here with her sister who is her primary electrician marine presenting for syncope while she was
in the shower. She uses a shower chair but was found on the floor with no recollection of the event. This was the first time fainting occurred in the shower. Prior to becoming unconscious, she felt lightheaded and reported the water sound was very
loud, and her arms and legs felt heavy, there is no acute lateralization of the heaviness.
The patient has a history of strokes and an intellectual disability. Post-event, she has bruising on her foot and leg due to a fall on a razor, with cuts noted on the back of her arm.
She never had any chest pain, headache, dizziness, vision loss, tachycardia, abdominal pain, vomiting or diarrhea. Patient is currently on a steroid taper after her most recent admission just acute couple weeks ago for subtherapeutic INR. She sees
frame bender and is on Lasix, she has severe mitral regurg.
Patient has never passed out before
PAST MEDICAL AND SURIGICAL HISTORY
The patient has a significant history including catastrophic antiphospholipid syndrome, multiple strokes, congestive heart failure, and mental disability. She has been hospitalized previously for severe swelling and confusion, which lasted for a
month. An MRI revealed multiple old strokes that were likely undiagnosed before.
CHRONIC MEDICAL CONDITIONS SIGNIFICANTLY AFFECTING CARE
- Catastrophic antiphospholipid syndrome
- Congestive heart failure
- History of multiple strokes
- Intellectual disability
SOCIAL DETERMINANTS AFFECTING HEALTH
The patients sister manages her medications and care at home, as she is in the process of becoming her home health aid. The patient does not handle her own medications.
MEDICATIONS
- Warfarin, managed with regular INR checks
- Prednisone, recent tapering from 7 mg to 2 mg
REVIEW OF SYSTEMS
- General: No chest pain, no shortness of breath, no nausea or vomiting.
- Neurological: Lightheadedness prior to the syncopal episode, felt arms and legs heavy with weakness more prominent on the left side.
PHYSICAL EXAM
- Nursing notes reviewed and vital signs reviewed.
PLAN
- Obtain a list of current medications and prednisone dosage from the patients sister.
- Consider imaging studies given the recent syncopal event amidst her anticoagulation therapy, potentially a head CT to rule out any acute intracranial events.
- Follow-up and involvement of a frame bender with respect to her congestive heart failure management.
DIFFERENTIAL DIAGNOSIS
The Differential Diagnosis includes, in no particular order and is not limited to:
- Syncope due to orthostatic hypotension
- Cardiovascular syncope secondary to underlying heart failure
- Neurological event such as transient ischemic attack
- Medication-induced hypotension or side effects
- Electrolyte imbalance
- Vasovagal syncope triggered by hot shower or dehydration
- Seizure activity
- Intracranial pathology given history of strokes
- Hypoglycemia
- Pulmonary embolism related to antiphospholipid syndrome
07/14/25 - 14:29
The patients kidney function and hemoglobin levels remain stable. No anemia is present. Cardiac enzymes are within normal limits; however, due to the patients dilated cardiomyopathy, they are not considered low-risk. dilated cm wiht EF of 20%,
indication for admission for monintoring for syncope
ct head ng
cxr no sig changes, indep reviewed
considered stress dose steroids but pt is not hypotensive
*Pulse Oximetry
SaO2: 100
Oxygen Mode of Delivery: Room air
Patient hypoxic: no (100)
*Critical Care Note
Total Time (30-74mins, 75-104mins- exclusive of procedures): Not Applicable
ED Attending Note
-
Portions of this chart may have been created with voice recognition software.� Occasional wrong word or��sound alike� substitutions may have occurred due to the inherent limitations of voice recognition software.
Discharge Plan
Departure
Patient Disposition: Admit
Date of Disposition: 07/14/25
Time of Disposition: 14:14
Admit to: Telemetry
Presentation/result/management discussed w/ accepting MD/DO: Hospitalist
Condition: Fair
Covid-19: Not Applicable
Discharge Problem:
Syncope
Interventions
Interventions:
*Risk Screen - Suicide Last Done: 07/14/25 11:54
*General Assessment Last Done: 07/14/25 12:48
*Neglect/Abuse Screening Last Done: 07/14/25 11:54
*ED- Fall Risk Assessment Last Done: 07/14/25 12:48
*ED COVID-19 Vaccine History Last Done: 07/14/25 12:48
*ED Influenza Vaccine History Last Done: 07/14/25 12:48
*Nursing Disposition Last Done: 07/14/25 17:20
ED- Cardiac Assessment Last Done: 07/14/25 12:48
ED- Neurological Assessment Last Done: 07/14/25 12:48
Discharge Date and Time
Discharge Date/Time: 07/14/25 17:20
--- NOTE | 2025-07-14 15:23 | CM ---
Patient seen at bedside in ED. Patient stated that she lives with her boyfriend, sister, and father in a split level home. Patient has CPAP and shower chair at home. Patient PCP is Dr. Mickey Neal and she uses [facility] in [place]. Patient
stated that her sister and father were on top of her medications and that her plan is for discharge home with no needs. CM will continue to follow for dicharge planning needs.
Plan; home with no needs vs home with VN
--- NOTE | 2025-07-14 15:34 | HPS.HSE ---
Family Physician
-
Family Physician: NOT KNOW UNKNOWN - PT DOES
Chief Complaint
-
Syncope in the shower
History of Present Illness
30 woman with a history of catastrophic antiphospholipid syndrome on steroids, multiple strokes on Coumadin, cardiomyopathy, intellectual disability presenting for syncope while she was in the shower. She uses a shower chair but was found on the
floor with no recollection of the event. This was the first time fainting. Prior to becoming unconscious, she felt lightheaded and reported the water sound was very loud, and her arms and legs felt heavy, there is no acute lateralization of the
heaviness. At the time of my interview she was at her baseline. She has had a recent runny nose, but otherwise has felt well. She was seen at on 06/27/25. Here is the summary of that visit:
'Discharge diagnosis:
1. Subtherapeutic INR.
2. Libido reticularis.
3. Acute kidney injury.
4. Subclinical hypothyroidism with symptoms.
5. Dilated cardiomyopathy.
6. History of cerebrovascular accident.
7. Sleep apnea.
8. Gallstones.
HOSPITAL COURSE: Patient was admitted with subtherapeutic INR. She
also had mild swelling of the face, which was not seen on the next
day when I examined her. She has a history of catastrophic
antiphospholipid antibody syndrome and on Coumadin. Dose was
recently adjusted, but she became subtherapeutic and was admitted.
She was started on Lovenox and then Coumadin. Reportedly, her anti
Xa levels were high at [facility], and they had to
readjust her Lovenox dose. we got Xa levels here, which were both
within range and also there was one level which was high. Lovenox
dose was adjusted accordingly. At this point, her INR is
therapeutic at 2.3. We recommended that she do a range of 2.5-3 4
to keep her INR therapeutic at this level.
Patient was also seen by Infectious Disease as she has a previous
lab, which was positive for Hanta virus. Patient was actually
living in a suboptimal condition prior to her previous
hospitalization here in April where she was transferred to
[facility] because of antiphospholipid antibody
syndrome, and she had a cardiomyopathy as well as CVA at that time.
Infectious Disease evaluated the patient, and no further
recommendations. They feel that this was a false positive. I have
communicated with the patient's Coumadin Clinic at [facility]
[place] regarding the Coumadin dosage. We will be doing 5 mg
alternating with 6 mg for discharge. She was also continued on her
medicines for cardiomyopathy. Patient was started on levothyroxine,
small dose because of the symptomatic hypothyroidism, subclinical.
However, she needs to get repeat labs done as outpatient. We
continued on her steroid taper, which was recommended from [facility]. Patient needs to follow up with [place]. She also has an
appointment with [facility] on 07/10. All this was
communicated with her father at discharge.'
Medical History
Past Medical History
Past Medical History: Reports Other
Additional Past Medical History:
catastrophic antiphospholipid syndrome,
multiple strokes,
congestive heart failure, decreased EF (25%)
hospitalized previously for severe swelling and confusion, which lasted for a month.
MRI revealed multiple old strokes that were likely undiagnosed before.
Past Surgical History: Reports None
Social History
Tobacco: Non-smoker
Alcohol: None
Drug: None
Personal: Single
Living: With Family
Employment: Disabled
Family History
Family History: Not pertinent
Allergies / Home Medications
Allergies reflects when Allergies were last updated in [facility].
Home Medications with original date entered in [facility]
Allergy/Medication List:
Allergies
Allergy/AdvReac Type Severity Reaction Status Date / Time
No Known Allergies Allergy Verified 07/14/25 11:53
Home Medications
ferrous sulfate 325 mg (65 mg iron) tablet 325 mg PO DAILY Supplement 06/20/25
furosemide 80 mg tablet (Lasix) 80 mg PO Q48H Fluid Retention/Swelling 06/20/25
metoprolol succinate 25 mg tablet,extended release 24 hr (Toprol XL) 25 mg PO BID Blood Pressure 06/20/25
thiamine HCl (vitamin B1) 100 mg tablet 100 mg PO DAILY Supplement 06/20/25
valsartan 40 mg tablet 40 mg PO BID Blood Pressure 06/20/25
levothyroxine 50 mcg tablet 50 mcg PO DAILY @ 0600 Thyroid #30 tabs 06/26/25
prednisone 10 mg tablet See Rx Instructions .Route .COMPLEX anti PL #45 tabs 06/26/25
sulfamethoxazole 400 mg-trimethoprim 80 mg tablet 1 tab PO DAILY while on prednisone #0 tabs 06/26/25
warfarin 5 mg tablet 5 mg PO DAILY Blood clot prevention/tx 07/14/25
Review of Systems
-
History Source: Patient
A 12 point ROS was completed and negative except as noted: Yes
Physical Exam
Vital Signs
Vital Signs
Temp Pulse Resp BP Pulse Ox
97.6 F 52 16 95/49 100
07/14/25 12:48 07/14/25 15:00 07/14/25 15:00 07/14/25 13:00 07/14/25 15:00
Physical Exam
General: Well Developed, Well Nourished, No Apparent Distress, Comfortable and Conversant
HEENT: NormoCephalic, Moist mucous membranes, Nose Appears Normal and Ears Appear Normal
Respiratory: Clear
Cardiac: S1/S2, Regular Rhythm and Bradycardia
GI: Soft, Non Tender and Non Distended
Musculoskeletal: No Clubbing, No Cyanosis and No Edema
Skin: Warm and Dry
Neuro: Awake, Alert, Oriented and AO x 3
Psych: Calm
Laboratory Results
-
07/14/25 12:39
07/14/25 12:39
Laboratory Results
PT 26.0 Sec (11.4-14.6) H 07/14/25 12:39
INR 2.37 07/14/25 12:39
APTT 31.5 Sec (23.4-35.0) 07/14/25 12:39
Total Bilirubin Cancelled 07/14/25 12:39
AST Cancelled 07/14/25 12:39
ALT Cancelled 07/14/25 12:39
Alkaline Phosphatase Cancelled 07/14/25 12:39
Troponin I < 0.012 ng/ml 07/14/25 12:39
Data Reviewed
-
Lab Data: Labs Reviewed by me
Impression/Plan
-
initial presentation:
30 year old woman with syncope.
Diagnosis present prior to admit:
CVA ([facility] April 2025
Autism spectrum disorder,
cardiomyopathy 2024 from
Catastrophic antiphospholipid syndrome
H/O Subtherapeutic INR.
Livedo reticularis.
H/O Acute kidney injury.
Subclinical hypothyroidism with symptoms.
Dilated cardiomyopathy.
History of cerebrovascular accidents
Sleep apnea.
Gallstones.
Assessment and Plan:
1. Syncope, in setting of CHF (EF of 25%). Differential includes:
Arrythmia (like symptomatic bradycardia)
LA
CVA or TIA
Dehydration in setting of low EF (BP here 95/49)
new valve problem
Plan:
GAYATHRI with troponins
Telemetry
Echo
Check orthostatics
2. H/O CVA ([facility] April 2025)
If no obvious reason is found, repeat MRI
3. Autism spectrum disorder - chronic issue
Allow her to control her diet and other controllable environmental aspects within reason
4. cardiomyopathy 2024 from Catastrophic antiphospholipid syndrome
Not volume overloaded
Continue current lasix
Echo to be repeated as described above
5. H/O Subtherapeutic INR.
Check INR
6. H/O Acute kidney injury, current BUN/Creat 38/1.5
Encourage usual PO intake
Check trend
If not improving by tomorrow, decrease the lasix dose
7. Subclinical hypothyroidism with symptoms.
Check TSH
8. Sleep apnea.
Allow her to use own machine, if available
Full Code
VCD and coumadin for DVTp
[2025-07-14] MEDS: COUMADIN 5 MG PO (18:20)
[2025-07-14 19:05] LABS: INR 2.52; PT 27.2 Sec (11.4-14.6)
--- NOTE | 2025-07-14 19:30 | PTCARENOTE ---
Patient arrived to unit just prior to change of shift, assumed care of patient from previous RN. Patient due for trop/EKG -- waiting on VAT RN to obtain. Patient alert and oriented, appears to be confused to certain aspects of medical care. Will
continue to monitor.
[2025-07-14 20:18] LABS: Troponin I < 0.012 ng/ml
--- NOTE | 2025-07-14 20:52 | PTCARENOTE ---
Addendum entered by Fabiola Rothman RN 07/14/25 21:13:
Orthostatic VS one time ordered, +tilts - INFLATED PAD BUFFER on unit and made aware, request to keep patient bedrest overnight for safety. Will monitor.
Original Note:
Patients BP low 99/56, HR 56 -- due for evening medication Metoprolol and Valsartan. Notified YAJAIRA Cox while rounding on unit, will hold evening medication at this time and monitor BPs overnight.
[2025-07-14] MEDS: TOPROL XL PO (20:53)
[2025-07-14] MEDS: DIOVAN PO (20:53)
[2025-07-15 00:48] LABS: Troponin I < 0.012 ng/ml
[2025-07-15 03:01] VITALS: BP 121/55
[2025-07-15] MEDS: SYNTHROID 50 MCG PO (05:40)
[2025-07-15 08:19] LABS: Hematocrit 25.4 % (37.0-47.0); Hemoglobin 8.8 g/dL (12.0-16.0); Mean Corp Hgb Conc. 34.6 g/dL (33.0-37.0); Mean Corpuscular Volume 89.8 fL (81.0-99.0); Platelet Count 138 10^3/uL (130-400); Red Cell Dist. Width 19.6 % (11.5-14.5)
[2025-07-15 08:30] LABS: INR 2.50; PT 27.0 Sec (11.4-14.6)
[2025-07-15 08:47] VITALS: BP 103/69; BP 119/68; BP 120/64; PULSE 65; PULSE 76; PULSE 96
[2025-07-15 08:49] LABS: Blood Urea Nitrogen 32 mg/dl (7-17); Calcium 9.3 mg/dl (8.4-10.2); Carbon Dioxide 27 mmol/L (22-30); Chloride 103 mmol/L (98-107); Estimated Creatinine Clearance 68 ml/min; Glucose 64 mg/dl (70-99); Potassium 3.8 mmol/L (3.5-5.1); Sodium 136 mmol/L (135-145); eGFR 52.55
[2025-07-15] MEDS: VITAMIN B1 100 MG PO (08:49)
[2025-07-15] MEDS: BACTRIM 400 MG/80 MG 1 TABLET PO (08:50)
[2025-07-15] MEDS: DELTASONE 10 MG PO (08:50)
[2025-07-15] MEDS: FEOSOL 325 MG PO (08:50)
[2025-07-15 09:24] LABS: Glucose - Point of Care 83 mg/dl (70-99)
[2025-07-15 09:32] LABS: Glycohemoglobin (HgbA1c) 4.4 % (4.0-5.9)
[2025-07-15] MEDS: LASIX 80 MG PO (10:09)
[2025-07-15] MEDS: TOPROL XL 25 MG PO ×2 (10:09→21:18)
[2025-07-15] MEDS: DIOVAN 40 MG PO (10:09)
--- NOTE | 2025-07-15 11:58 | W.PN.HOSP.TC ---
Today's Communication/Plan
-
Continue to monitor on telemetry
Decrease valsartan
Continue with prednisone
Monitor blood pressure
Assessment / Plan
Assessment / Plan
#Syncope likely secondary to orthostatic hypotension possibly due to multiple cardiac medication versus arrhythmia
Troponin negative x 3
proBNP lower compared to previous admission
Neurologically intact no focal deficit noted
Patient orthostatic positive last night
Decreased dose of valsartan and observe. Continue metoprolol and Lasix
Recently seen [place] quality control checker and no medication regimen changes were made
INR was therapeutic on admission and also as outpatient recently which was 2.7. Doubt thromboembolic.
Monitor blood pressure. If persistently remains orthostatic then may need to consider decreasing Lasix
#H/O CVA ([facility] April 2025)
INR therapeutic
CT head was negative
Monitor for now.
#Autism spectrum disorder - chronic issue
Allow her to control her diet and other controllable environmental aspects within reason
# cardiomyopathy 2024 from Catastrophic antiphospholipid syndrome
Not volume overloaded
Continue current lasix
Echo to be repeated as described above
Patient maintained on prednisone taper regimen
Elevated creatinine unclear if CKD versus pseudo elevation in creatinine as patient on Bactrim
Encourage usual PO intake
pseudo elevation in creatinine as patient on Bactrim
Subclinical hypothyroidism with symptoms.
TSH appropriate
Sleep apnea.
Allow her to use own machine, if available
Full Code
VCD and coumadin for DVTp
Discussed with patient father over the phone in detail. He was agreeable and amenable with current planning.
Anticipated Discharge: 24 - 48 hours
Subjective/Interval History
-
Date of Service: July 15, 2025
Denies any lightheadedness or dizziness
Walked to the bathroom earlier today
States after taking her pharmacist intern medication she went to take a shower. She was sitting on the chair in the bath and then next thing She remember was on the floor. Patient states they are feeling lightheaded/ dizzy.
No chest pain no palpitation prior to syncopal episode
Objective Data
-
Labs:
Laboratory Results
07/15/25
07:04
WBC 5.3
Hgb 8.8 L
Hct 25.4 L
Plt Count 138
PT 27.0 H
INR 2.50
Sodium 136
Potassium 3.8
Chloride 103
Carbon Dioxide 27
BUN 32 H
Creatinine 1.4 H
Glucose 64 L
Calcium 9.3
Vital Signs:
Vital Signs
Temp Pulse Resp BP Pulse Ox
97.4 F 65 18 120/64 99
07/15/25 03:01 07/15/25 10:09 07/15/25 03:01 07/15/25 10:09 07/15/25 11:20
I&O
07/14/25 07/15/25 07/16/25
06:59 06:59 06:59
Intake Total 120 / 120
Balance 120 / 120
Physical Exam
-
General: Well Developed, No Apparent Distress and Morbidly Obese (BMI 48.7)
HEENT: Normocephalic, Atraumatic and Moist Mucous Membranes
Respiratory: Clear to Auscultation
Cardiac: Regular Rhythm and S1/S2; Negative Murmur, Rub or Gallop
GI: Soft, Nontender, Nondistended and Normal Bowel Sounds; Negative Organomegaly
Rectal: Deferred by Provider
Musculoskeletal: No Clubbing, No Cyanosis and No Edema
Skin: Negative Rash
Neuro: Awake, No Motor Deficits and Nonfocal/Grossly Intact
Psych: Calm
Data Reviewed
-
Total Time Spent with Patient (in minutes): 55
[2025-07-15 12:13] VITALS: BP 96/53
[2025-07-15 17:13] VITALS: BP 95/59
[2025-07-15] MEDS: COUMADIN 5 MG PO (17:14)
[2025-07-15 19:57] VITALS: BP 97/52
[2025-07-15 23:25] VITALS: BP 123/68
[2025-07-16] VITALS (7 sets, daily range): BP systolic 95–115; BP diastolic 54–71; BMI 48.6
[2025-07-16 06:25] LABS: Hematocrit 27.3 % (37.0-47.0); Hemoglobin 9.5 g/dL (12.0-16.0); Mean Corp Hgb Conc. 34.8 g/dL (33.0-37.0); Mean Corpuscular Volume 91.9 fL (81.0-99.0); Nucleated Red Blood Cells % 0 %; Platelet Count 143 10^3/uL (130-400); Red Cell Dist. Width 19.6 % (11.5-14.5)
[2025-07-16 06:28] LABS: INR 2.48; PT 26.8 Sec (11.4-14.6)
[2025-07-16] MEDS: SYNTHROID 50 MCG PO (06:31)
[2025-07-16 06:58] LABS: Blood Urea Nitrogen 38 mg/dl (7-17); Calcium 9.4 mg/dl (8.4-10.2); Carbon Dioxide 27 mmol/L (22-30); Chloride 102 mmol/L (98-107); Estimated Creatinine Clearance 60 ml/min; Glucose 74 mg/dl (70-99); Potassium 3.9 mmol/L (3.5-5.1); Sodium 136 mmol/L (135-145); eGFR 44.77
--- NOTE | 2025-07-16 08:20 | W.PN.HOSP.TC ---
Today's Communication/Plan
-
monitor BP, INR
antihypertensive regimen adjusted, holding parameters updated
repeat ECHO
monitor renal function
Assessment / Plan
Assessment / Plan
Physical
General: No acute distress, appear comfortable, morbidly obese
HEENT: Normocephalic, Atraumatic and Moist Mucous Membranes
Respiratory: Clear to Auscultation
Cardiac: Regular Rhythm and S1/S2; Negative Murmur, Rub or Gallop
GI: Soft, Nontender, Nondistended and Normal Bowel Sounds; Negative Organomegaly
Musculoskeletal: No Clubbing, No Cyanosis and No Edema
Skin: Negative Rash
Neuro: AOx3 conversant coherent
Psych: Calm
30F hx catastrophic antiphospholipid syndrome CVA on Coumadin Autism spectrum d/o here for syncope w/ associate Orthostatic hypotension.
#Syncope likely secondary to orthostatic hypotension possibly due to multiple cardiac medication versus arrhythmia
Troponin negative x 3
proBNP lower compared to previous admission
Neurologically intact no focal deficit noted
Monitor Orthostatic vitals, initially pos, since significantly improved
Valsartan reduced from 40 mg BID to QPM. Continue metoprolol and Lasix w holding parameters
#H/O CVA ([facility] April 2025)
INR therapeutic
CT head was negative
Monitor for now.
#Autism spectrum disorder - chronic issue
Allow her to control her diet and other controllable environmental aspects within reason
# cardiomyopathy 2024 from Catastrophic antiphospholipid syndrome
Not volume overloaded
Continue current lasix
Repeat ECHO notes improvement in EF 49% (prior 20 % on [facility] April)
cont BOBBIN MARKER prednisone taper
Elevated Cr suspect baseline 1.4-1.6, CKD III
monitor renal function
Hypothyroidism
TSH wnl
cont home synthroid 50 mcg daily.
Sleep apnea.
own CPAP machine
Full Code
VCD and coumadin for DVTp
discussed with patient and patient's father Ha.
I spent a total of 45 minutes with the patient or on the floor. More than 50% of this time involved counseling and coordination of care.
Anticipated Discharge: 24 - 48 hours
Subjective/Interval History
-
Date of Service: July 16, 2025
No acute distress, overall reports feeling well, ambulatory without need for assist device.
Objective Data
-
Labs:
Laboratory Results
07/16/25
06:02
WBC 5.1
Hgb 9.5 L
Hct 27.3 L
Plt Count 143
PT 26.8 H
INR 2.48
Sodium 136
Potassium 3.9
Chloride 102
Carbon Dioxide 27
BUN 38 H
Creatinine 1.6 H
Glucose 74
Calcium 9.4
Vital Signs:
Vital Signs
Temp Pulse Resp BP Pulse Ox
97.6 F 70 17 99/54 99
07/16/25 07:20 07/16/25 07:20 07/16/25 07:20 07/16/25 07:20 07/16/25 07:20
I&O
07/15/25 07/16/25 07/17/25
06:59 06:59 06:59
Intake Total 120 / 120 480 / 480
Balance 120 / 120 480 / 480
[2025-07-16] MEDS: DELTASONE 10 MG PO ×2 (09:19→16:38)
[2025-07-16] MEDS: TOPROL XL PO ×2 (09:19→20:28)
[2025-07-16] MEDS: BACTRIM 400 MG/80 MG 1 TABLET PO (09:19)
[2025-07-16] MEDS: FEOSOL 325 MG PO (09:20)
[2025-07-16] MEDS: VITAMIN B1 100 MG PO (09:20)
--- NOTE | 2025-07-16 11:34 | CM ---
Patient seen at bedside on . patient stated she has no needs and father or sister will transport when discharged. CM will continue to follow for discharge planning needs.
Plan; home with no needs anticipated.
[2025-07-16] MEDS: COUMADIN 5 MG PO (17:14)
[2025-07-16] MEDS: DIOVAN 40 MG PO (17:14)
[2025-07-17 03:02] VITALS: BP 118/60
[2025-07-17] MEDS: SYNTHROID 50 MCG PO (06:07)
[2025-07-17 06:50] LABS: Hematocrit 26.4 % (37.0-47.0); Hemoglobin 9.3 g/dL (12.0-16.0); Mean Corp Hgb Conc. 35.2 g/dL (33.0-37.0); Mean Corpuscular Volume 89.2 fL (81.0-99.0); Platelet Count 146 10^3/uL (130-400); Red Cell Dist. Width 18.7 % (11.5-14.5)
[2025-07-17 06:52] LABS: INR 2.50; PT 27.0 Sec (11.4-14.6)
[2025-07-17 07:15] LABS: Blood Urea Nitrogen 33 mg/dl (7-17); Calcium 9.3 mg/dl (8.4-10.2); Carbon Dioxide 24 mmol/L (22-30); Chloride 104 mmol/L (98-107); Estimated Creatinine Clearance 80 ml/min; Glucose 87 mg/dl (70-99); Magnesium 2.4 mg/dl (1.6-2.3); Potassium 4.4 mmol/L (3.5-5.1); Sodium 133 mmol/L (135-145); eGFR > 60.00
[2025-07-17 07:24] VITALS: BP 126/70
[2025-07-17] MEDS: DELTASONE 20 MG PO (07:28)
[2025-07-17] MEDS: LASIX 80 MG PO (07:28)
[2025-07-17] MEDS: VITAMIN B1 100 MG PO (07:28)
[2025-07-17] MEDS: FEOSOL 325 MG PO (07:28)
[2025-07-17] MEDS: PROTONIX 40 MG PO (07:28)
[2025-07-17] MEDS: TOPROL XL 25 MG PO (07:28)
--- NOTE | 2025-07-17 07:42 | W.PN.HOSP.TC ---
Today's Communication/Plan
-
discharge
Assessment / Plan
Assessment / Plan
Physical
General: No acute distress, appear comfortable, morbidly obese
HEENT: Normocephalic, Atraumatic and Moist Mucous Membranes
Respiratory: Clear to Auscultation
Cardiac: Regular Rhythm and S1/S2; Negative Murmur, Rub or Gallop
GI: Soft, Nontender, Nondistended and Normal Bowel Sounds; Negative Organomegaly
Musculoskeletal: No Clubbing, No Cyanosis and No Edema
Skin: Negative Rash
Neuro: AOx3 conversant coherent
Psych: Calm
30F hx catastrophic antiphospholipid syndrome CVA on Coumadin Autism spectrum d/o here for syncope w/ associate Orthostatic hypotension.
#Syncope likely secondary to orthostatic hypotension possibly due to multiple cardiac medication versus arrhythmia
Troponin negative x 3
proBNP lower compared to previous admission
Neurologically intact no focal deficit noted
Monitor Orthostatic vitals, initially pos, since significantly improved/resolved
Valsartan reduced from 40 mg BID to QPM. Continue metoprolol and Lasix w holding parameters
#H/O CVA ([facility] April 2025)
INR therapeutic
CT head neg for acute abn's
#Autism spectrum disorder - chronic issue
Allow her to control her diet and other controllable environmental aspects within reason
# cardiomyopathy 2024 from Catastrophic antiphospholipid syndrome
Not volume overloaded
Continue current lasix
Repeat ECHO notes improvement in EF 49% (prior 20 % on [facility] April)
cont GLOBAL CHIEF CREATIVE OFFICER prednisone taper
CKD III vs possible mild ROGELIO on CKDIII
Cr improving
Hypothyroidism
TSH wnl
cont home synthroid 50 mcg daily.
Sleep apnea.
own CPAP machine
Full Code
VCD and coumadin for DVTp
Medically stable for discharge home with outpatient follow up recommendations.
discussed with patient and patient's father Ha.
Total Time Preparing Discharge __40 minutes including examination of the patient, summary of the hospital stay, instructions for continuing care to all relevant caregivers; and preparation of discharge records, prescriptions, and referral
forms if necessary.
Anticipated Discharge: Today
Subjective/Interval History
-
Date of Service: July 17, 2025
Seen examined at bedside in no acute distress sitting up comfortably in bed. Ambulating without need for assist device. Overall reports feeling well. Denies new acute issues. Eager to go home
Objective Data
-
Labs:
Laboratory Results
07/17/25
05:59
WBC 5.1
Hgb 9.3 L
Hct 26.4 L
Plt Count 146
PT 27.0 H
INR 2.50
Sodium 133 L
Potassium 4.4
Chloride 104
Carbon Dioxide 24
BUN 33 H
Creatinine 1.2 H
Glucose 87
Calcium 9.3
Vital Signs:
Vital Signs
Temp Pulse Resp BP Pulse Ox
98.6 F 70 18 126/70 96
07/17/25 07:24 07/17/25 07:28 07/17/25 07:24 07/17/25 07:28 07/17/25 07:24
I&O
07/16/25 07/17/25 07/18/25
06:59 06:59 06:59
Intake Total 480 / 480 1800 / 1800
Balance 480 / 480 1800 / 1800
--- NOTE | 2025-07-17 10:45 | CM ---
patient seen at bedside
chart reviewed
PLAN: home, no needs
grandmother to transport
[2025-07-17 10:51] VITALS: BP 126/77
[2025-07-17 14:27] VITALS: BP 114/70
--- NOTE | 2025-07-17 14:32 | W.DCSUMMARY ---
Discharge Summary
Discharge Data
Date of Admission: 07/14/25
Date of Discharge: 07/17/25
-
Pending Results: No
Discharge Plan
-
Patient Disposition: Home (Routine Discharge)
Discharge Diagnosis/Procedures: Syncope due to iatrogenic orthostatic hypotension since resolved with adjustment to medications
Anemia
Chronic Kidney Disease Stage III
Condition: Fair
Diet: Low Cholesterol and 2 Gram Sodium
Activity: As tolerated
Driving Restrictions: As prior to admission
Bathing Restrictions: None
Blood Work: repeat CBC and BMP with primary care provider in 1 week of discharge.
Activity Restrictions/Additional Instructions:
Follow up with your primary care provider in 1 week of discharge and your cigarette making machine catcher in 2-4 weeks of discharge.
Valsartan has been reduced from twice a day to once every evening due to concerns iatrogenic Orthostatic Hypotension since resolved.
Keep a twice a day log of your blood pressures at home- to review with your primary care provider and Inspector [place] in follow up.
Please take medications as prescribed/recommended and follow up with primary care provider and/or other healthcare provider involved in your care for refills and/or further adjustments to your medication regimen as necessary.
Referrals:
UNKNOWN - PT DOES,NOT KNOW [Family Provider]
Prescriptions:
Continued
thiamine HCl (vitamin B1) 100 mg Tablet
100 mg PO DAILY
furosemide [Lasix] 80 mg Tablet
80 mg PO Q48H
ferrous sulfate 325 mg (65 mg iron) Tablet
325 mg PO DAILY
metoprolol succinate [Toprol XL] 25 mg Tablet Extended Release 24 Hr
25 mg PO BID
levothyroxine 50 mcg Tablet
50 mcg PO DAILY @ 0600 Qty: 30 0RF
warfarin 5 mg tablet
5 mg PO DAILY@1800
prednisone 10 mg tablet
20 mg PO .TAPER
Rx Instructions:
07/14/25: DAY 3 OF 7 ON 20 MG; 10 MG X 3 DAYS, THEN STOP
lansoprazole 30 mg Tablet,Disintegrat, Delay Rel
30 mg PO DAILY@0700
Changed
valsartan 40 mg Tablet
40 mg PO QPM Qty: 30 0RF
Discharge Orders:
Discharge Patient (As Directed); Ordered 07/17/25
Ordered By: Gerald Melendez
Discharge Date and Time
Print Language: MONTENEGRIN
== END 2025-07-17 15:23 | disposition home or self-care (01) | DRG 312 ==
LOC: 3 WEST ACU 16:15
PROVIDERS: Hospitalist; Physician Assistant; ADMITTING PHYSICIAN Internal Medicine; ATTENDING PHYSICIAN Internal Medicine; EMERGENCY PHYSICIAN Emergency Medicine
DX: I95.1 Orthostatic hypotension (principal); D68.61 Antiphospholipid syndrome; I42.0 Dilated cardiomyopathy; F84.0 Autistic disorder; N18.30 Chronic kidney disease, stage 3 unspecified; D64.9 Anemia, unspecified; G47.30 Sleep apnea, unspecified; K80.20 Calculus of gallbladder without cholecystitis without obstruction; Z86.73 Personal history of transient ischemic attack (TIA), and cerebral infarction without residual deficits; Z79.01 Long term (current) use of anticoagulants; Z79.890 Hormone replacement therapy; Z79.899 Other long term (current) drug therapy; E86.0 Dehydration; F79 Unspecified intellectual disabilities; I50.9 Heart failure, unspecified
CPT/HCPCS: 70450; 71046; 80048; 82962; 83036; 83735; 83880; 84100; 84443; 84484; 85025; 85027; 85610; 85730; 93005; 93308; 93321; 93325; 99285